=== PATIENT | female | born 1950 | race Caucasian/White ===

== ENCOUNTER 2020-02-29 10:31 | Day surgery (SDC) | payer OTHER ==
[2020-02-29] MEDS ORDERED: PROPOFOL 20 ML ONE ×3 (11:50)
[2020-02-29] MEDS ORDERED: PHENYLEPHRINE HCL 10 MG/1 ML SINGLE DOSE VIAL ONE (12:34)
[2020-02-29 13:16] VITALS: PULSE 84; TEMP 97.8
[2020-02-29 13:53] VITALS: BP 101/65
--- NOTE | 2020-03-03 09:37 | PATH ---
Surgical Pathology Report Patient Name: NOÉ TRIANA [facility]. Rec. #: [id number] /Age/Gender: 1950 (Age: 69) / F Account: [id number] Location: [facility] Taken: 02/29/2020 Received: 02/29/2020 Reported: 03/03/2020 Physicians: Des Alvaerz M.D. Specimen(s) Received A: POLYPECTOMY ILEOCECAL AREA B: POLYPECTOMY RIGHT COLON C: RECTUM Clinical History History polyps, change in bowel habits Postoperative diagnosis: Colon polyps, rule out microscopic colitis Final Diagnosis A. ILEOCECAL AREA, HOT SNARE POLYPECTOMY: TUBULAR ADENOMA. B. COLON, RIGHT, HOT SNARE POLYPECTOMY: TUBULAR ADENOMA. C. RECTUM, BIOPSY: SCANT SUPERFICIAL FRAGMENTS OF COLONIC EPITHELIUM. DEEPER LEVELS HAVE BEEN EXAMINED. SEE COMMENT. Comment: Part C, findings are insufficient for definitive diagnosis. Suggest clinical and endoscopic correlation. Electronically Signed Malu Avalos M.D. Gross Description A. Received in formalin, labeled ileocecal area" are 5 vargas, irregular portions of soft tissue measuring 0.2-0.8 cm. in greatest dimension. The base of the largest fragment is inked in blue, and serially sectioned. The specimens are submitted in 2 cassettes as follows: 1- largest fragment; 2- smaller fragments. B. Received in formalin, labeled "right colon" are 7 vargas, irregular portions of soft tissue measuring 0.2-0.5 cm. in greatest dimension. The specimens are submitted in toto in one cassette. C. Received in formalin, labeled "rectum" are 2 vargas, irregular portions of soft tissue measuring 0.1 cm. in greatest dimension. The specimens are submitted in toto in one cassette. MLSZ/03/01/2020 sanml/03/01/2020
== END 2020-02-29 13:56 | disposition short-term general hospital (02) ==
LOC: FASU-ENDO 10:31
PROVIDERS: ATTEND Internal Medicine Gastroenterology
PROC: 0DBC8ZX Excision of Ileocecal Valve, Via Natural or Artificial Opening Endoscopic, Diagnostic (ICD-10-PCS; 2020-02-29)
PROC: 0DBP8ZX Excision of Rectum, Via Natural or Artificial Opening Endoscopic, Diagnostic (ICD-10-PCS; 2020-02-29)
PROC: 0DBN8ZX Excision of Sigmoid Colon, Via Natural or Artificial Opening Endoscopic, Diagnostic (ICD-10-PCS; 2020-02-29)
PROC: 0DBK8ZX Excision of Ascending Colon, Via Natural or Artificial Opening Endoscopic, Diagnostic (ICD-10-PCS; principal; 2020-02-29 12:13)
DX: Z86.010 Personal history of colon polyps (principal); D12.0 Benign neoplasm of cecum; D12.2 Benign neoplasm of ascending colon
CPT/HCPCS: 82962; 88305-TC

== ENCOUNTER 2020-03-18 13:19 | Inpatient (IN) | payer OTHER ==
[2020-03-18 13:37] VITALS: BMI 33.8
--- NOTE | 2020-03-18 13:47 | PDOC ---
History of Present Illness - General Chief Complaint: Nausea Stated Complaint: NAUSEA Time Seen by Provider: 03/18/20 13:47 History Source: Patient, Family Exam Limitations: No Limitations - History of Present Illness Initial Comments: 03/18/20 14:29 69F with PMH of insulin dependent DM, HTN, hysterectomy, and c/s presents to ED nausea/vomiting, unable to tolerate PO, and AMS. She was brought in by her [id number] (who provides much of the history) from [facility] rehab (for right foot amputation) due to appearing to be altered. The patient has been able to tolerate some fluids PO, but no food for days. She's been getting zofran w/o relief, and is currently nauseous. Denies fevers, hematemesis, diarrhea/constipation, VELAZCO, numbness/tingling, cp, sob, abd pain. PMH: as in HPI, peripheral vascular disease SH: as in HPI Meds: In chart Allergies: NKDA PCP: in [place] Specialist: Dr. Tinoco (GI) ROS GENERAL/CONSTITUTIONAL: No fever or chills. No weakness. HEENT: No change in vision. No ear pain or discharge. No sore throat. CARDIOVASCULAR: No chest pain or shortness of breath RESPIRATORY: No cough, wheezing, or hemoptysis. GASTROINTESTINAL: +nausea, vomiting; no diarrhea or constipation. No hematemesis. GENITOURINARY: No dysuria, frequency, or change in urination. MUSCULOSKELETAL: No joint or muscle swelling or pain. No neck or back pain. SKIN: No rash NEUROLOGIC: No headache, loss of consciousness, or change in strength/sensation. ENDOCRINE: No increased thirst. No abnormal weight change HEMATOLOGIC/LYMPHATIC: No anemia, easy bleeding, or history of blood clots. ALLERGIC/IMMUNOLOGIC: No hives or skin allergy. PE GENERAL: AOx2 (oriented to self and place, not time); ill-appearing HEAD: No signs of trauma, NC/AT EYES: PERRLA, EOMI, sclera anicteric, conjunctiva clear ENT: Auricles normal inspection, hearing grossly normal, nares patent, moist mucosa, oropharynx clear without exudates. NECK: Normal ROM, supple, no LAD, JVD, or masses HEART: RRR, normal S1/S2, no murmurs, rubs, or gallops. Peripheral pulses 2+ and equal bilaterally. LUNGS: No distress, speaks full sentences, clear to auscultation bilaterally ABDOMEN: Mild diffuse tenderness. No guarding, no rebound. No masses. Neg Hernandez sign EXTREMITIES: Normal inspection, Normal range of motion, no edema. NEUROLOGICAL: CNII-XII grossly intact. Normal speech, no focal sensorimotor deficits. Slightly inaccurate xgkgmt-co-bopc testing SKIN: Warm, Dry, normal turgor, no rashes or lesions noted Assessment and Plan 1. Gastroparesis 2. dehydration 2/2 inability to tolerate PO Alistair Alfaro, PGY1 Emergency Medicine Past History - Medical History Allergies/Adverse Reactions: Allergies Allergy/AdvReac Type Severity Reaction Status Date / Time adhesive tape Allergy Intermediate Itching Verified 02/29/20 11:16 Home Medications: Ambulatory Orders Acetaminophen [Tylenol -] 500 mg PO Q8H 03/18/20 Insulin Glargine,Hum.rec.anlog [Lantus] 13 unit SQ HS 03/18/20 Loperamide HCl [Imodium -] 2 mg PO DAILY 03/18/20 Losartan Potassium 100 mg PO DAILY 03/18/20 Multivitamins [Tab-A-Vit -] 1 tab PO DAILY 03/18/20 Nystatin Cream [Mycostatin] 1 applic TP BID 03/18/20 Omeprazole Magnesium [Prilosec] 20 mg PO DAILY 03/18/20 Ondansetron HCl [Zofran] 4 mg PO TID 03/18/20 Pravastatin Sodium [Pravachol (Nf)] 20 mg PO HS 03/18/20 Tolterodine Tartrate 2 mg PO BID 03/18/20 Zinc Oxide 0 gm TP DAILY 03/18/20 Anemia: No Asthma: No Cancer: No Cardiac Disorders: No CVA: No COPD: No CHF: No Dementia: No Diabetes: Yes GI Disorders: Yes (GERD) Disorders: Yes (OVERACTIVE BLADDER/INCT) HTN: Yes Hypercholesterolemia: No Liver Disease: No Seizures: No Thyroid Disease: No - Surgical History Abdominal Surgery: Yes (SEE BELOW) Appendectomy: No Cardiac Surgery: No Cholecystectomy: No Lung Surgery: No Neurologic Surgery: No Orthopedic Surgery: Yes (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 Audit-10AR): Negative In the last yr the pt used illegal drug/Rx for NonMed reason: No Score: Yes response is considered Positive: 0 Screen Result (Positive result requires Nsg. DAST-10): Negative *Physical Exam - Vital Signs Last Vital Signs Temp Pulse Resp BP Pulse Ox 97.9 F 74 18 110/39 L 100 03/18/20 13:28 03/18/20 13:28 03/18/20 13:28 03/18/20 13:28 03/18/20 13:28 ED Treatment Course - LABORATORY CBC & Chemistry Diagram: 03/18/20 15:00 03/18/20 16:50 Medical Decision Making - Medical Decision Making 03/18/20 14:50 69F with PMH of insulin dependent DM p/w AMS, inability to tolerate PO, and n/v. Pt was AOx2, appears dry, mild abd tenderness otherwise exam wnl. -> will get CBC, CMP, lactate, lipase, EKG, 1L NS -> eval for electrolyte disturbance Will give Reglan if no QT prolongation -> QTc 440 -> given IV Reglan EKG: nsr, no ST-T changes, no peaked T waves r/o ACS, may be atypical presentation. r/o intracranial pathology due to AMS -> CT head 03/18/20 16:18 CBC unremarkable. Trop negative. Lactate wnl. CMP notable for elevated BUN, creatinine (no prior labs) -> may reflect ROSALES -> will consult nephrology UA had +3 blood, leukocyte esterase, >6400 bacteria, >[address] head negative. 03/18/20 18:11 Potassium 7.1, repeated potassium 7/1 -> will correct potassium with pt insulin + dextrose, calcium gluconate, and Lokelma Spoke with nephrology, Dr. Gtz, advised to correct potassium, volume expand, and then repeat labs. He will see pt after admitted. 03/18/20 18:58 Pt admitted to /s for further w/up. Discharge - Discharge Information Problems reviewed: Yes Clinical Impression/Diagnosis: ROSALES (acute kidney injury) Condition: Improved - Admission Yes - Follow up/Referral - Patient Discharge Instructions - Post Discharge Activity
[2020-03-18] MEDS ORDERED: SODIUM CHLORIDE 0.9% 500 ML INFUS.BAG IV ONE ×2 (14:52→18:10)
[2020-03-18] MEDS ORDERED: ACETAMINOPHEN 500 MG TABLET (FP) PO ONE (14:52)
[2020-03-18] MEDS ORDERED: ACETAMINOPHEN 1000 MG/100 ML VIAL (NON FORMULARY) IVPB ONE (15:03)
[2020-03-18] MEDS ORDERED: ACETAMINOPHEN INJECTION 100 ML IVPB ONE (15:12)
[2020-03-18 15:38] LABS: BASO % 0.3 % (0-2.0); EOS % 0.1 % (0-4.5); HEMATOCRIT 33.8 % (32.4-45.2); HEMOGLOBIN 10.7 GM/dL (10.7-15.3); LYMPH % 31.5 % (8-40); MCHC 31.6 g/dl (32.0-36.0); MEAN CELL VOLUME 79.2 fl (80-96); MONO % 8.7 % (3.8-10.2); NEUT % 59.4 % (42.8-82.8); PLATELET COUNT 370 K/MM3 (134-434); RBC 4.26 M/mm3 (3.60-5.2); RDW 20.3 % (11.6-15.6); WHITE BLOOD COUNT 9.7 K/mm3 (4.0-10.0)
[2020-03-18 16:09] LABS: ALBUMIN 2.3 g/dl (3.4-5.0); ALK PHOS 171 U/L (45-117); BILIRUBIN,TOTAL 0.3 mg/dL (0.2-1); BLOOD UREA NITROGEN 87.3 mg/dL (7-18); CALCIUM 8.9 mg/dL (8.5-10.1); CHLORIDE 105 mmol/L (98-107); CO2 16 mmol/L (21-32); GLUCOSE,RANDOM 194 mg/dL (74-106); LIPASE 137 U/L (73-393); SGOT/AST 32 U/L (15-37); SGPT/ALT 21 U/L (13-61); SODIUM 133 mmol/L (136-145); TOT PROT 8.4 g/dl (6.4-8.2)
[2020-03-18 16:10] LABS: ANION GAP 12 MMOL/L (8-16)
[2020-03-18 16:18] LABS: POTASSIUM 7.1 mmol/L (3.5-5.1)
[2020-03-18 16:19] LABS: URINE APPEARANCE TURBID; URINE BILIRUBIN NEGATIVE (NEGATIVE); URINE COLOR YELLOW; URINE GLUCOSE (UA) NEGATIVE (NEGATIVE); URINE KETONE 1+ (NEGATIVE)
[2020-03-18 16:20] LABS: URINE PROTEIN 3+ (NEGATIVE)
[2020-03-18 16:21] LABS: EPI CELLS 41.7 /uL (0-25.1); HYALINE CASTS 1545.09 /uL (0-3.1); URINE BACTERIA 6446.3 /uL (0-1359); URINE LEUK ESTERASE 3+ (NEGATIVE); URINE NITRITE NEGATIVE (NEGATIVE); URINE RBC 861.1 /uL (0-23.9); URINE UROBILINOGEN 0.2 mg/dL (0.2-1.0); URINE WBC 17120 /uL (0-25.8)
[2020-03-18] MEDS ORDERED: METOCLOPRAMIDE HCL INJECTION 10 MG/2 ML VIAL IVPUSH ONE (16:33)
--- NOTE | 2020-03-18 16:34 | PDOC ---
Documentation entered by Daniel Acharya SCRIBE, acting as scribe for Prieto Medina MD. Prieto Medina MD: This documentation has been prepared by the Marck villalta Angel, SCRIBE, under my direction and personally reviewed by me in its entirety. I confirm that the documentation accurately reflects all work, treatment, procedures, and medical decision making performed by me. Attending Attestation - Resident Resident Name: Alistair Alfaro - ED Attending Attestation I have performed the following: I have examined & evaluated the patient, The case was reviewed & discussed with the resident, I agree w/resident's findings & plan, Exceptions are as noted - HPI HPI: 03/18/20 15:40 The patient is a 69 year old female with a significant past medical history of IDDM, HTN, hysterectomy and c/s who presents to the ED from [facility] rehab, brought in by her [id number]-dz-qyz with nausea and vomiting. The patient was brought in because she appeared to be altered. The patient has been able to tolerate some fluids PO but has not been able to keep food down for several days. The patient has received zofran with no relief and feels nauseous here in the ED. The patient denies fevers, diarrhea/constipation, headaches, SOB, numbness/tingling or chest pain. - Physicial Exam PE: 03/18/20 16:31 GENERAL: The patient is awake, alert Nontoxic - in no acute distress. HEAD: Normocephalic, atraumatic. EYES: extraocular movements intact, sclera anicteric, conjunctiva clear. ENT: Normal voice, dry mucous membranes. NECK: Normal range of motion, supple LUNGS: Breath sounds equal, clear to auscultation bilaterally. No wheezes, no rhonchi, no rales. HEART: Regular rate and rhythm, normal S1 and S2 without murmur, rub or gallop. ABDOMEN: Soft, nontender, No guarding, no rebound. No CVA tenderness EXTREMITIES: Normal range of motion, trace edema. NEUROLOGICAL: No facial assymetry, Normal speech, PSYCH: Normal mood, normal affect. SKIN: Warm, Dry, normal turgor, - Medical Decision Making 03/18/20 16:32 Patient blood work noted for creatinine of 7 and an elevated BUN I suspect that the patient's persistent vomiting inability to tolerate oral int radha may have resulted in an ROSALES Per the patient's son she does not have any history of kidney disease in the past. We will hydrate the patient with fluids, there is no signs of widened interval or other EKG changes -as the potassium was hemolyzed will repeat the potassium. Anticipate admission for further management Discharge - Discharge Information Problems reviewed: Yes Clinical Impression/Diagnosis: ROSALES (acute kidney injury), Hyperkalemia Altered mental status Qualifiers: Altered mental status type: unspecified Qualified Code(s): R41.82 - Altered mental status, unspecified Condition: Guarded - Follow up/Referral - Patient Discharge Instructions - Post Discharge Activity
[2020-03-18 16:42] LABS: YEAST NONE SEEN (NEGATIVE)
[2020-03-18] MEDS ORDERED: CEFTRIAXONE 1,000 MG in DEXTROSE 5%-WATER - 50 ML IVPB ONE (16:57)
[2020-03-18] MEDS ORDERED: CEFTRIAXONE 1 GM/50 ML BAG ONE (16:58)
[2020-03-18] MEDS ORDERED: METOCLOPRAMIDE HCL 10 MG TABLET (FP) PO ONE (16:58)
[2020-03-18] MEDS ORDERED: METOCLOPRAMIDE HCL INJECTION 10 MG/2 ML VIAL ONE (16:58)
[2020-03-18 17:34] LABS: BLOOD UREA NITROGEN 87.8 mg/dL (7-18); CALCIUM 8.4 mg/dL (8.5-10.1); CREATININE 6.9 mg/dL (0.55-1.3)
[2020-03-18 17:40] LABS: POTASSIUM 7.1 mmol/L (3.5-5.1)
[2020-03-18] MEDS ORDERED: INSULIN REGULAR HUMAN 100 UNITS/ML *VIAL IVPUSH ONE (18:06)
[2020-03-18] MEDS ORDERED: DEXTROSE 50%-WATER - 25 GM/50 ML VIAL IVPUSH ONE (18:08)
[2020-03-18] MEDS ORDERED: CALCIUM GLUCONATE 10% - 1,000 MG/10 ML VIAL IVPB ONE (18:09)
[2020-03-18] MEDS ORDERED: CALCIUM GLUCONATE 10% - 1,000 MG/10 ML VIAL ONE (18:19)
[2020-03-18] MEDS ORDERED: DEXTROSE 50%-WATER 25 GM/50 ML DISP.SYRIN ONE (18:20)
[2020-03-18] MEDS: SODIUM ZIRCONIUM CYCLOSILICATE (LOKELMA) 5 GM PACKET PO SCH (20:44)
[2020-03-18] MEDS ORDERED: LACTATED RINGERS SOLUTION 1,000 ML/1,000 ML INFUS.BAG IV SCH (20:45)
--- NOTE | 2020-03-18 20:54 | HP ---
CHIEF COMPLAINT: Nausea/vomiting PCP: Dr. Ajit Ramos HISTORY OF PRESENT ILLNESS: Pt is a 69 year old female with PMHx of IDDM, HTN, HLD, PVD, s/p R foot TMA presenting to the ED with nausea, vomiting. Pt son is bedside in the ED who provides assistance with the history. Pt states she has been at [facility] for the last few months after R foot TMA amputation. Pt states the last few weeks she has had increasing nausea and vomiting that has progressively worsened. Pt states initially it was mainly food and some liquids, but now is unable to keep down any food and liquids, as either of these will cause vomiting within 5-10 minutes. Pt states the vomit has been non bloody, nonbilious. Pt has tried Zo paola with no benefit. Pt denies any fever, chills, urinary symptoms, chest pain, palpitations, diarrhea and constipation. Admits to nausea, without any vomiting. ER course was notable for: (1) K+7.1; given calcium gluc, insulin+D50, lokelma (2) EKG without peaked T waves (3) BUN/Cr 87.8/6.9, given 2L fluid bolus (4) UA with >61417 bacteria, 3+ LE PAST MEDICAL HISTORY: As stated in HPI PAST SURGICAL HISTORY: R foot TMA 2019 Hysterectomy 2003 Social History: Smoking: Denies Alcohol: Denies Drugs: Denies Allergies adhesive tape Allergy (Intermediate, Verified 02/29/20 11:16) Itching HOME MEDICATIONS: Home Medications Medication Instructions Recorded Acetaminophen [Tylenol -] 500 mg PO Q8H 03/18/20 Insulin Glargine,Hum.rec.anlog 13 unit SQ HS 03/18/20 [Lantus] Loperamide HCl [Imodium -] 2 mg PO DAILY 03/18/20 Losartan Potassium 100 mg PO DAILY 03/18/20 Multivitamins [Tab-A-Vit -] 1 tab PO DAILY 03/18/20 Nystatin Cream [Mycostatin] 1 applic TP BID 03/18/20 Omeprazole Magnesium [Prilosec] 20 mg PO DAILY 03/18/20 Ondansetron HCl [Zofran] 4 mg PO TID 03/18/20 Pravastatin Sodium [Pravachol (Nf)] 20 mg PO HS 03/18/20 Tolterodine Tartrate 2 mg PO BID 03/18/20 Zinc Oxide 0 gm TP DAILY 03/18/20 REVIEW OF SYSTEMS CONSTITUTIONAL: Absent: fever, chills, diaphoresis, generalized weakness, malaise, loss of appetite, weight change HEENT: Absent: rhinorrhea, nasal congestion, throat pain, throat swelling, difficulty swallowing, mouth swelling, ear pain, eye pain, visual changes CARDIOVASCULAR: Absent: chest pain, syncope, palpitations, irregular heart rate, lighthea dedness, peripheral edema RESPIRATORY: Absent: cough, shortness of breath, dyspnea with exertion, orthopnea, wheezing, stridor, hemoptysis GASTROINTESTINAL: Admits nausea, NBNB vomiting Absent: abdominal pain, abdominal distension, diarrhea, constipation, melena, hematochezia GENITOURINARY: Absent: dysuria, frequency, urgency, hesitancy, hematuria, flank pain, genital pain MUSCULOSKELETAL: Absent: myalgia, arthralgia, joint swelling, back pain, neck pain SKIN: Absent: rash, itching, pallor HEMATOLOGIC/IMMUNOLOGIC: Absent: easy bleeding, easy bruising, lymphadenopathy, frequent infections ENDOCRINE: Absent: unexplained weight gain, unexplained weight loss, heat intolerance, cold intolerance NEUROLOGIC: Admits bladder incontinence Absent: headache, focal weakness or paresthesias, dizziness, unsteady gait, seizure, mental status changes, bowel incontinence PSYCHIATRIC: Absent: anxiety, depression, suicidal or homicidal ideation, hallucinations. PHYSICAL EXAMINATION Vital Signs - 24 hr 03/18/20 03/18/20 13:28 17:40 Temperature 97.9 F 98.2 F Pulse Rate 74 Pulse Rate [ 101 H Apical] Respiratory 18 18 Rate Blood Pressure 110/39 L Blood Pressure 115/51 L [Left Arm] O2 Sat by Pulse 100 100 Oximetry (%) GENERAL: Awake, alert, and fully oriented, in no acute distress. HEAD: Normal with no signs of trauma. EYES: Pupils equal, round and reactive to light, extraocular movements intact, sclera anicteric, conjunctiva clear. No lid lag. EARS, NOSE, THROAT: Ears normal, nares patent, oropharynx clear without exudates. Moist mucous membranes. NECK: Normal range of motion, supple without lymphadenopathy, JVD, or masses. LUNGS: Breath sounds equal, clear to auscultation bilaterally. No wheezes, and no crackles. No accessory muscle use. HEART: Regular rate and rhythm, normal S1 and S2 without murmur, rub or gallop. ABDOMEN: Soft, nontender, not distended, normoactive bowel sounds, no guarding, no rebound, no masses. No hepatomegaly or splenomegaly. MUSCULOSKELETAL: Normal range of motion at all joints. No bony deformities or tenderness. No CVA tenderness. UPPER EXTREMITIES: 2+ pulses, warm, well-perfused. No cyanosis. No clubbing. No peripheral edema. LOWER EXTREMITIES: 2+ pulses, warm, well-perfused. No calf tenderness. No suha pheral edema. R foot TMA. 4/5 muscle strength bilaterally NEUROLOGICAL: Cranial nerves II-XII intact. Normal speech. Normal gait. PSYCHIATRIC: Cooperative. Good eye contact. Appropriate mood and affect. SKIN: Warm, dry, normal turgor, no rashes or lesions noted, normal capillary refill. Laboratory Results - last 24 hr 03/18/20 03/18/20 03/18/20 15:00 15:00 15:00 WBC 9.7 RBC 4.26 Hgb 10.7 Hct 33.8 MCV 79.2 L MCH 25.0 L MCHC 31.6 L RDW 20.3 H Plt Count 370 MPV 8.0 Absolute Neuts (auto) 5.8 Neutrophils % 59.4 Lymphocytes % 31.5 Monocytes % 8.7 Eosinophils % 0.1 Basophils % 0.3 Nucleated RBC % 0 Sodium 133 L Potassium 7.1 H* Chloride 105 Carbon Dioxide 16 L Anion Gap 12 BUN 87.3 H Creatinine 7.0 H Est GFR (CKD-EPI)AfAm 6.42 Est GFR (CKD-EPI)NonAf 5.54 POC Glucometer Random Glucose 194 H Lactic Acid 0.9 Calcium 8.9 Total Bilirubin 0.3 AST 32 ALT 21 Alkaline Phosphatase 171 H Creatine Kinase 25 L Troponin I < 0.02 Total Protein 8.4 H Albumin 2.3 L Lipase 137 Urine Color Urine Appearance Urine pH Ur Specific [place] Urine Protein Urine Glucose (UA) Urine Ketones Urine Blood Urine Nitrite Urine Bilirubin Urine Urobilinogen Ur Leukocyte Esterase Urine WBC (Auto) Urine RBC (Auto) Urine Casts (Auto) U Pathogenic Cast Auto U Epithel Cells (Auto) Urine Bacteria (Auto) Urine Yeast (Auto) 03/18/20 03/18/20 03/18/20 15:42 15:55 16:50 WBC RBC Hgb Hct MCV MCH MCHC RDW Plt Count MPV Absolute Neuts (auto) Neutrophils % Lymphocytes % Monocytes % Eosinophils % Basophils % Nucleated RBC % Sodium 135 L Potassium 7.1 H* Chloride 107 Carbon Dioxide 18 L Anion Gap 10 BUN 87.8 H Creatinine 6.9 H Est GFR (CKD-EPI)AfAm 6.53 Est GFR (CKD-EPI)NonAf 5.64 POC Glucometer 168 Random Glucose 180 H Lactic Acid Calcium 8.4 L Total Bilirubin AST ALT Alkaline Phosphatase Creatine Kinase Troponin I Total Protein Albumin Lipase Urine Color Yellow Urine Appearance Turbid Urine pH 6.0 Ur Specific [place] 1.012 Urine Protein 3+ H Urine Glucose (UA) Negative Urine Ketones 1+ H Urine Blood 3+ H Urine Nitrite Negative Urine Bilirubin Negative Urine Urobilinogen 0.2 Ur Leukocyte Esterase 3+ H Urine WBC (Auto) 21048 Urine RBC (Auto) 861.1 Urine Casts (Auto) 1545.09 U Pathogenic Cast Auto None seen U Epithel Cells (Auto) 41.7 Urine Bacteria (Auto) 6446.3 Urine Yeast (Auto) None seen ASSESSMENT/PLAN: Pt is a 69 year old female with PMHx of IDDM, HTN, HLD, PVD, s/p R foot TMA presenting to the ED with nausea, vomiting admitted for ROSALES/hyperkalemia. #ROSALES #Hyperkalemia -BUN/Cr 87.8/6.9 -2L fluid bolus -on IV LR 83 cc/hr -K+ 7, repeat 6.9 -Ca gluc, insulin 10u + D50, Lokelma -no peaked T waves on EKG -repeat BMP after fluid bolus complete, q4h afterwards -Renal ultrasound -urine lytes -renal consulted #UTI -seen with UA, UCx pending -continue Rocephin #Hx of DM -SSI and bgm -A1c ordered FEN LR 83cc/hr Monitor electrolytes Diabetic/sodium diet PPx Heparin 5000u TID Dispo Admit to tele. Monitor K+, BMP q4h. Rocephin for UTI. ATTENDING PHYSICIAN STATEMENT I saw and evaluated the patient. I reviewed the resident's note and discussed the case with the resident. I agree with the resident's findings and plan as documented. SUBJECTIVE: OBJECTIVE: ASSESSMENT AND PLAN:
[2020-03-18] MEDS: INSULIN SLIDING SCALE (NOVOLOG) 1 VIAL SQ SCH (21:00)
--- NOTE | 2020-03-18 21:04 | PN ---
Teaching Attending Note Name of Resident: Diana Roberts ATTENDING PHYSICIAN STATEMENT I saw and evaluated the patient. I reviewed the resident's note and discussed the case with the resident. I agree with the resident's findings and plan as documented. SUBJECTIVE: 69 Y/O F w/PMHx of IDDM, HTN, HLD, p/w weeks of nausea and vomiting. OBJECTIVE: V/S: Afeb HR 101 BP 115/51 100 % on RA PE: Gen: poor dentition, A&Ox 3 Cardiac: S1 S2 no M/R/G Lung: CTA B/L Abd: Soft non tender no suprapubic distension BS normal , no guarding or rigidity Ext: Right TMA No edema b/l Labs: No leukocytosis H/H 10.7/33 Plt 370 Na 135 K 7.1 BUN/Creat 87/6.9 U.A 3+ Blood, 3+ protein 3+ leukocyte esterase In ED Received Cagluc , Insulin 10 units &D50 ASSESSMENT AND PLAN: Acute Renal Failure W/HyperKalemia UTI Pre-renal ROSALES 2/2 Dehydration in setting of recent history of vomiting Kay insertion Urine electrolytes U/S Renal Tele monitoring Monitor BMP K q 4 hr IV LR @ 83 cc/hr C/W Rocephin VBG Monitor Bicarb Received tx for Hyper K in ED, repeat K tx per results Monitor I/O DM ISS HbA1C Supp care DVT Px- HSQ 5K TID Diet Renal
[2020-03-18 21:16] LABS: BLOOD UREA NITROGEN 80.2 mg/dL (7-18); CALCIUM 8.2 mg/dL (8.5-10.1); CREATININE 6.3 mg/dL (0.55-1.3); POTASSIUM 5.7 mmol/L (3.5-5.1)
[2020-03-18] MEDS: HEPARIN NA (PORCINE) 5,000 UNITS/ML 1ML VIAL SQ SCH (22:00)
[2020-03-19] MEDS: INSULIN SLIDING SCALE (NOVOLOG) 1 VIAL SQ SCH ×3 (06:56→17:46)
[2020-03-19 07:00] LABS: BASO % 0.2 % (0-2.0); EOS % 0.3 % (0-4.5); LYMPH % 24.9 % (8-40); MCH 24.9 pg (25.7-33.7); MCHC 31.2 g/dl (32.0-36.0); MEAN CELL VOLUME 79.7 fl (80-96); MEAN PLT VOLUME 7.7 fl (7.5-11.1); MONO % 7.2 % (3.8-10.2); NEUT % 67.4 % (42.8-82.8); PLATELET COUNT 331 K/MM3 (134-434); RBC 4.01 M/mm3 (3.60-5.2); RDW 19.8 % (11.6-15.6); WHITE BLOOD COUNT 10.5 K/mm3 (4.0-10.0)
[2020-03-19] MEDS: HEPARIN NA (PORCINE) 5,000 UNITS/ML 1ML VIAL SQ SCH ×3 (07:01→22:18)
[2020-03-19 07:26] LABS: BLOOD UREA NITROGEN 76.2 mg/dL (7-18); CALCIUM 8.5 mg/dL (8.5-10.1); MAGNESIUM 1.5 mg/dL (1.8-2.4); PHOSPHOROUS 4.5 mg/dL (2.5-4.9)
[2020-03-19 07:29] LABS: POTASSIUM 6.1 mmol/L (3.5-5.1)
[2020-03-19] MEDS ORDERED: INSULIN REGULAR HUMAN 100 UNITS/ML *VIAL IVPUSH ONE (07:49)
[2020-03-19] MEDS ORDERED: ALBUTEROL SO4 2.5/IPRATROPIUM 0.5 INH SOL 3 ML VIAL.NEB. NEB ONE (07:49)
[2020-03-19] MEDS ORDERED: DEXTROSE 50%-WATER - 25 GM/50 ML VIAL IVPUSH ONE (07:49)
[2020-03-19] MEDS ORDERED: CALCIUM GLUCONATE 10% - 1,000 MG/10 ML VIAL IVPB ONE (08:30)
[2020-03-19] MEDS ORDERED: SODIUM CHLORIDE 1,000 ML IV SCH ×2 (08:30→14:32)
[2020-03-19] MEDS ORDERED: cefTRIAXone SODIUM 1 GM VIAL ONE (10:40)
[2020-03-19] MEDS ORDERED: DEXTROSE 5%-WATER - 50 ML IVPB ONE (10:40)
[2020-03-19] MEDS ORDERED: DEXTROSE 50%-WATER - 25 GM/50 ML VIAL ONE (10:46)
[2020-03-19] MEDS: SODIUM ZIRCONIUM CYCLOSILICATE (LOKELMA) 5 GM PACKET PO SCH (11:00)
[2020-03-19] MEDS: CEFTRIAXONE 1 GM in DEXTROSE 5%-WATER - 50 ML IVPB SCH (11:01)
[2020-03-19] MEDS ORDERED: ONDANSETRON 4 MG/2 ML VIAL IVPUSH PRN (12:23)
--- NOTE | 2020-03-19 12:37 | PN ---
Teaching Attending Note Name of Resident: Greg Gonzales ATTENDING PHYSICIAN STATEMENT I saw and evaluated the patient. I reviewed the resident's note and discussed the case with the resident. I agree with the resident's findings and plan as documented. SUBJECTIVE: patient is a limited historian. slow to responds and sometimes responds with unrelated answer. she denies pain, denies SOB, she feels she is dry. she reports N/V for a " while ". she denies dysuria. has no diarrhea. she states she lives in a NH. is to call her son to ask more specific questions OBJECTIVE: NAD, very dry MM. knows her name, and year, but not age or location . CV: RRR, no MRG Lungs: CTAB Abd: soft , NT, Nd , NL BS. Ext : No edema or erythema on LE or upper extremities. R TMA . no open wounds . surgical scar is well healed Neuro: no facial EOMI, strength 4/5 in upper extremities proximally and distally LE s: 3/5 in hip flexion , and knee felxion and extension . ASSESSMENT AND PLAN: 69 y/o lady with h/o TMA, DM, HTN, HL, PVD who presented with persistent N/V and was found to have acute renal failure and hyperkalemia 1- ROSALES: likely due to pre-renal azotemia due to severe volume depletion form N/V - increase rate of IVF - treat hyperkalemia - case was d/w Dr. Gtz, if K level improves, there is no indication for urgent HD to avoid side effects - will ask son if mom takes NSIAds or other meds that can offend the kidneys 2- Hyperkalemia: - gave ca, Alb, D50 this am - cont Lokelma - re peat labs - EKG reviewed. 3- persistent N/V: no clear etiology. in presence of microcytic anemia, need to r/o gastritis , PUD, or even ulcer ca using gastric oout let edema /scarring . BS are present and no distention is seen. doubt SBO or ileus UTI can cause N/V but not for prolonged period of time without sepsis or bacteremia urenmia can cause N/V as well - get CT of Abd - use PPI - give IVF - antiemetics. - if no improvement or no answers , will ask GI to evaluate 4- UTI: - cont ceftriaxone - follow urine cx 5- Microcytic anemia : get iron studies and FOBT might need GI eval at some point 6- Dm : dc HS coverage of SSI 7- Will confirm her meds DVT px : sq heparin Son to be called by team for more details
[2020-03-19 13:16] LABS: BLOOD UREA NITROGEN 74.4 mg/dL (7-18); CALCIUM 8.7 mg/dL (8.5-10.1); POTASSIUM 5.1 mmol/L (3.5-5.1)
--- NOTE | 2020-03-19 13:43 | CONSULT ---
Consult Consult Specialty:: Nephrology Reason for Consultation:: ROSALES - History of Present Illness Chief Complaint: nausea and vomiting History of Present Illness: Pt is a 69 year old female with pmhx of DM, HTN, HLD, PVD, right foot TMA who presents to the ER with nausea and vomiting. She says that she has had poor appetite for the last few weeks. She has only been drinking orange juice all week. She also complains of weakness. She was found to be in ROSALES and I was called to evaluate her. She denies dysuria or hematuria. She denies history of CKD. She denies nsaid use. She is able to give some history today. - History Source History Provided By: Patient - Past Medical History Cardio/Vascular: Yes: HTN, Hyperlipdemia ...: No Endocrine: Yes: Diabetes Mellitus - Smoking History Smoking history: Never smoked Have you smoked in the past 12 months: No Home Medications - Allergies Allergies/Adverse Reactions: Allergies Allergy/AdvReac Type Severity Reaction Status Date / Time adhesive tape Allergy Intermediate Itching Verified 02/29/20 11:16 - Home Medications Home Medications: Ambulatory Orders Acetaminophen [Tylenol -] 500 mg PO Q8H 03/18/20 Insulin Glargine,Hum.rec.anlog [Lantus] 13 unit SQ HS 03/18/20 Loperamide HCl [Imodium -] 2 mg PO DAILY 03/18/20 Losartan Potassium 100 mg PO DAILY 03/18/20 Multivitamins [Tab-A-Vit -] 1 tab PO DAILY 03/18/20 Nystatin Cream [Mycostatin] 1 applic TP BID 03/18/20 Omeprazole Magnesium [Prilosec] 20 mg PO DAILY 03/18/20 Ondansetron HCl [Zofran] 4 mg PO TID 03/18/20 Pravastatin Sodium [Pravachol (Nf)] 20 mg PO HS 03/18/20 Tolterodine Tartrate 2 mg PO BID 03/18/20 Zinc Oxide 0 gm TP DAILY 03/18/20 Family Medical History Family History: Denies Review of Systems - Review of Systems Constitutional: reports: Loss of Appetite, Malaise, Weakness Eyes: reports: No Symptoms HENT: reports: No Symptoms Neck: reports: No Symptoms Cardiovascular: reports: No Symptoms Respiratory: reports: No Symptoms Gastrointestinal: reports: Nausea, Vomiting Genitourinary: reports: No Symptoms Musculoskeletal: reports: No Symptoms Neurological: reports: Confusion Endocrine: reports: No Symptoms Psychiatric: reports: No Symptoms Physical Exam Vital Signs: Vital Signs Temperature 98.1 F 03/19/20 00:05 Pulse Rate 78 03/19/20 06:47 Respiratory Rate 18 03/19/20 06:47 Blood Pressure 137/56 L 03/19/20 06:47 O2 Sat by Pulse Oximetry (%) 98 03/19/20 00:05 Constitutional: Yes: Calm Eyes: Yes: Conjunctiva Clear HENT: Yes: Atraumatic Cardiovascular: Yes: S1, S2 Respiratory: Yes: CTA Bilaterally Gastrointestinal: Yes: Soft Renal/: Yes: WNL Musculoskeletal: Yes: WNL Edema: No Neurological: Yes: Oriented Labs: CBC, BMP 03/19/20 06:00 03/19/20 12:25 Laboratory Tests 03/18/20 03/18/20 03/18/20 15:00 16:50 20:40 Potassium 7.1 H* 7.1 H* 5.7 H Carbon Dioxide Creatinine 03/19/20 03/19/20 06:00 12:25 Potassium 6.1 H* 5.1 Carbon Dioxide 16 L Creatinine 6.0 H 6.0 H Imaging - Results Cat Scan: Report Reviewed Problem List - Problems (1) Hyperkalemia Code(s): E87.5 - HYPERKALEMIA (2) Vomiting Code(s): R11.10 - VOMITING, UNSPECIFIED (3) HTN (hypertension) Code(s): I10 - ESSENTIAL (PRIMARY) HYPERTENSION (4) Diabetes mellitus Code(s): E11.9 - TYPE 2 DIABETES MELLITUS WITHOUT COMPLICATIONS (5) ROSALES (acute kidney injury) Code(s): N17.9 - ACUTE KIDNEY FAILURE, UNSPECIFIED Assessment/Plan Current Medications Generic Name Dose Route Start Last Admin Trade Name Freq PRN Reason Stop Dose Admin Albuterol/Ipratropium 2 amp 03/19/20 07:49 Duoneb - NEB 03/19/20 07:50 ONCE ONE Heparin Sodium (Porcine) 5,000 unit 03/18/20 22:00 03/19/20 07:01 Heparin - SQ 5,000 unit TID EDITH Administration Ceftriaxone Sodium 1 gm/ 50 mls @ 100 mls/hr 03/19/20 10:00 03/19/20 11:01 Dextrose IVPB 100 mls/hr DAILY EDITH Administration Protocol Sodium Chloride 1,000 mls @ 125 mls/hr 03/19/20 08:30 03/19/20 11:00 Normal Saline - IV 125 mls/hr ASDIR EDITH Administration Influenza Virus Vaccine 60 mcg 03/19/20 04:46 Flulaval Quad 9450-3180 Syr IM 03/19/20 04:47 .ONCE ONE Insulin Aspart 1 vial 03/19/20 11:00 03/19/20 12:51 Novolog Vial Sliding Scale - SQ 4 units TIDAC EDITH Administration Protocol Ondansetron HCl 4 mg 03/19/20 12:23 Zofran Injection IVPUSH Q6H PRN NAUSEA AND/OR VOMITING Sodium Zirconium Cyclosilicate 10 gm 03/18/20 18:15 03/19/20 11:00 Lokelma PO 10 gm DAILY EDITH Administration Impression 1. ROSALES 2. hyperkalemia 3. nausea and vomiting 4. met acidosis 5. DM 6. HTN 7. HLD 8. 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
[2020-03-19 14:03] LABS: ALBUMIN 1.9 g/dl (3.4-5.0); BILIRUBIN,TOTAL 0.2 mg/dL (0.2-1); TOT PROT 7.2 g/dl (6.4-8.2)
[2020-03-19] MEDS ORDERED: FLU VACCINE (FLULAVAL) PF 60 MCG/0.5 ML SYRINGE 2020-2021 IM ONE (14:15)
[2020-03-19] MEDS: SODIUM BICARBONATE 650 MG TABLET PO SCH ×2 (15:21→22:18)
[2020-03-19] MEDS ORDERED: SODIUM ZIRCONIUM CYCLOSILICATE (LOKELMA) 5 GM PACKET PO ONE (15:33)
--- NOTE | 2020-03-19 16:34 | PN ---
Physical Exam: SUBJECTIVE: Patient seen and examined at bedside, confused and unable to provide clear information. Contacted son for further details. He reports that his mother was at baseline before October, AAOx3, communicating, ambulating. 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 After discharge/rehab, she showed some improvements. He reports that he was not able to visit his mother for 3 months due to covid, and recently visited her on . He noticed she was disoriented, more confused, had b/l resting tremors and weight loss. He reports that she had intractable nausea and vomiting for 3-4 wks with decreased PO intake and complained of loss of taste sensation. He reports No Hx of kidney disease, and no NSIAD use. Patient was seen by Dr. Noriega, who did a colonoscopy w/o any abnormal findings. OBJECTIVE: Vital Signs Period Temp Pulse Resp BP Sys/Puga Pulse Ox Last 24 Hr 97.5 F-98.2 F 74-101 18-22 115-148/50-92 98-100 GENERAL: AAOx3, in no acute distress HEENT: NCAT, PERRLA, EOMI, sclera anicteric, conjunctiva clear, oropharynx clear w/o exudates. Dry MM. NECK: Normal ROM, supple, no lymphadenopathy, JVD, or masses LUNGS: CTABL no wheezes/ rhonchi/ rales. No distress, speaks in full sentences. No increased work of breathing. HEART: RRR, normal S1 S2, no M/R/G, peripheral pulses 2+ and equal b/l ABDOMEN: Soft, non-tender, + BS. No guarding or rebound. No hepatomegaly or s plenomegaly. MSK: ROM WNL, NO CVA tenderness EXTREMITIES: Normal inspection. No peripheral edema. No clubbing or cyanosis. s/p R foot TMA, healing 1.5x1cm ulcer near the distal site NEUROLOGICAL: CN II-XII intact. Normal speech, gait not observed, no focal sensorimotor deficits. intact motor and sensory function in all extremities PSYCH: Normal mood, normal affect. SKIN: Warm, Dry, normal turgor, no rashes or lesions noted Laboratory Results - last 24 hr 03/18/20 03/18/20 03/18/20 15:00 15:00 15:16 WBC RBC Hgb Hct MCV MCH MCHC RDW Plt Count MPV Absolute Neuts (auto) Neutrophils % Lymphocytes % Monocytes % Eosinophils % Basophils % Nucleated RBC % Retic Count Sodium 133 L Potassium 7.1 H* Chloride 105 Carbon Dioxide 16 L Anion Gap 12 BUN 87.3 H Creatinine 7.0 H Est GFR (CKD-EPI)AfAm 6.42 Est GFR (CKD-EPI)NonAf 5.54 POC Glucometer Random Glucose 194 H Hemoglobin A1c % Lactic Acid 0.9 Calcium 8.9 Phosphorus Magnesium Iron TIBC Iron Saturation Unsaturated IBC Ferritin Total Bilirubin 0.3 AST 32 ALT 21 Alkaline Phosphatase 171 H Creatine Kinase 25 L Troponin I < 0.02 Total Protein 8.4 H Albumin 2.3 L Lipase 137 Urine Color Urine Appearance Urine pH Ur Specific [place] Urine Protein Urine Glucose (UA) Urine Ketones Urine Blood Urine Nitrite Urine Bilirubin Urine Urobilinogen Ur Leukocyte Esterase Urine WBC (Auto) Urine RBC (Auto) Urine Casts (Auto) U Pathogenic Cast Auto U Epithel Cells (Auto) Urine Bacteria (Auto) Urine Yeast (Auto) COVID-19 (TAMIKA) Not detected 03/18/20 03/18/20 03/18/20 15:42 15:55 16:50 WBC RBC Hgb Hct MCV MCH MCHC RDW Plt Count MPV Absolute Neuts (auto) Neutrophils % Lymphocytes % Monocytes % Eosinophils % Basophils % Nucleated RBC % Retic Count Sodium 135 L Potassium 7.1 H* Chloride 107 Carbon Dioxide 18 L Anion Gap 10 BUN 87.8 H Creatinine 6.9 H Est GFR (CKD-EPI)AfAm 6.53 Est GFR (CKD-EPI)NonAf 5.64 POC Glucometer 168 Random Glucose 180 H Hemoglobin A1c % Lactic Acid Calcium 8.4 L Phosphorus Magnesium Iron TIBC Iron Saturation Unsaturated IBC Ferritin Total Bilirubin AST ALT Alkaline Phosphatase Creatine Kinase Troponin I Total Protein Albumin Lipase Urine Color Yellow Urine Appearance Turbid Urine pH 6.0 Ur Specific [place] 1.012 Urine Protein 3+ H Urine Glucose (UA) Negative Urine Ketones 1+ H Urine Blood 3+ H Urine Nitrite Negative Urine Bilirubin Negative Urine Urobilinogen 0.2 Ur Leukocyte Esterase 3+ H Urine WBC (Auto) 92313 Urine RBC (Auto) 861.1 Urine Casts (Auto) 1545.09 U Pathogenic Cast Auto None seen U Epithel Cells (Auto) 41.7 Urine Bacteria (Auto) 6446.3 Urine Yeast (Auto) None seen COVID-19 (TAMIKA) 03/18/20 03/19/20 03/19/20 20:40 06:00 06:00 WBC 10.5 H RBC 4.01 Hgb 10.0 L Hct 32.0 L MCV 79.7 L MCH 24.9 L MCHC 31.2 L RDW 19.8 H Plt Count 331 MPV 7.7 Absolute Neuts (auto) 7.1 Neutrophils % 67.4 Lymphocytes % 24.9 D Monocytes % 7.2 Eosinophils % 0.3 D Basophils % 0.2 Nucleated RBC % 0 Retic Count Sodium 138 137 Potassium 5.7 H 6.1 H* Chloride 112 H 110 H Carbon Dioxide 19 L 15 L Anion Gap 7 L 12 BUN 80.2 H 76.2 H Creatinine 6.3 H 6.0 H Est GFR (CKD-EPI)AfAm 7.29 7.74 Est GFR (CKD-EPI)NonAf 6.29 6.68 POC Glucometer Random Glucose 137 H 158 H Hemoglobin A1c % Lactic Acid Calcium 8.2 L 8.5 Phosphorus 4.0 4.5 Magnesium 1.5 L Iron TIBC Iron Saturation Unsaturated IBC Ferritin Total Bilirubin AST ALT Alkaline Phosphatase Creatine Kinase Troponin I Total Protein Albumin Lipase Urine Color Urine Appearance Urine pH Ur Specific [place] Urine Protein Urine Glucose (UA) Urine Ketones Urine Blood Urine Nitrite Urine Bilirubin Urine Urobilinogen Ur Leukocyte Esterase Urine WBC (Auto) Urine RBC (Auto) Urine Casts (Auto) U Pathogenic Cast Auto U Epithel Cells (Auto) Urine Bacteria (Auto) Urine Yeast (Auto) COVID-19 (TAMIKA) 03/19/20 03/19/20 03/19/20 06:00 06:54 10:58 WBC RBC Hgb Hct MCV MCH MCHC RDW Plt Count MPV Absolute Neuts (auto) Neutrophils % Lymphocytes % Monocytes % Eosinophils % Basophils % Nucleated RBC % Retic Count Sodium Potassium Chloride Carbon Dioxide Anion Gap BUN Creatinine Est GFR (CKD-EPI)AfAm Est GFR (CKD-EPI)NonAf POC Glucometer 169 152 Random Glucose Hemoglobin A1c % 6.7 H Lactic Acid Calcium Phosphorus Magnesium Iron TIBC Iron Saturation Unsaturated IBC Ferritin Total Bilirubin AST ALT Alkaline Phosphatase Creatine Kinase Troponin I Total Protein Albumin Lipase Urine Color Urine Appearance Urine pH Ur Specific [place] Urine Protein Urine Glucose (UA) Urine Ketones Urine Blood Urine Nitrite Urine Bilirubin Urine Urobilinogen Ur Leukocyte Esterase Urine WBC (Auto) Urine RBC (Auto) Urine Casts (Auto) U Pathogenic Cast Auto U Epithel Cells (Auto) Urine Bacteria (Auto) Urine Yeast (Auto) COVID-19 (TAMIKA) 03/19/20 03/19/20 03/19/20 12:25 12:25 12:26 WBC RBC Hgb Hct MCV MCH MCHC RDW Plt Count MPV Absolute Neuts (auto) Neutrophils % Lymphocytes % Monocytes % Eosinophils % Basophils % Nucleated RBC % Retic Count 0.75 Sodium 139 Potassium 5.1 Chloride 111 H Carbon Dioxide 16 L Anion Gap 11 BUN 74.4 H Creatinine 6.0 H Est GFR (CKD-EPI)AfAm 7.74 Est GFR (CKD-EPI)NonAf 6.68 POC Glucometer 203 Random Glucose 203 H Hemoglobin A1c % Lactic Acid Calcium 8.7 Phosphorus Magnesium Iron 36 L TIBC 114 L Iron Saturation 31 Unsaturated IBC 78 L Ferritin 395.8 H Total Bilirubin 0.2 AST 20 ALT 16 Alkaline Phosphatase 145 H Creatine Kinase Troponin I Total Protein 7.2 Albumin 1.9 L Lipase Urine Color Urine Appearance Urine pH Ur Specific [place] Urine Protein Urine Glucose (UA) Urine Ketones Urine Blood Urine Nitrite Urine Bilirubin Urine Urobilinogen Ur Leukocyte Esterase Urine WBC (Auto) Urine RBC (Auto) Urine Casts (Auto) U Pathogenic Cast Auto U Epithel Cells (Auto) Urine Bacteria (Auto) Urine Yeast (Auto) COVID-19 (TAMIKA) Active Medications Generic Name Dose Route Start Last Admin Trade Name Freq PRN Reason Stop Dose Admin Heparin Sodium (Porcine) 5,000 unit 03/18/20 22:00 03/19/20 15:21 Heparin - SQ 5,000 unit TID EDITH Administration Ceftriaxone Sodium 1 gm/ 50 mls @ 100 mls/hr 03/19/20 10:00 03/19/20 11:01 Dextrose IVPB 100 mls/hr DAILY EDITH Administration Protocol Sodium Chloride 1,000 mls @ 150 mls/hr 03/19/20 14:32 03/19/20 15:21 Normal Saline - IV 150 mls/hr ASDIR EDITH Administration Insulin Aspart 1 vial 03/19/20 11:00 03/19/20 12:51 Novolog Vial Sliding Scale - SQ 4 units TIDAC EDITH Administration Protocol Ondansetron HCl 4 mg 03/19/20 12:23 Zofran Injection IVPUSH Q6H PRN NAUSEA AND/OR VOMITING Sodium Bicarbonate 650 mg 03/19/20 14:00 03/19/20 15:21 Sodium Bicarbonate - PO 650 mg BID EDITH Administration Sodium Zirconium Cyclosilicate 10 gm 03/18/20 18:15 03/19/20 11:00 Lokelma PO 10 gm DAILY EDITH Administration ASSESSMENT/PLAN: 69 Y F with a PMH of IDDM, HTN, HLD, PVD, s/p R foot TMA presenting to the ED with nausea, vomiting admitted for ROSALES/hyperkalemia. #ROSALES - Likely 2/2 pre-renal Azotemia (dehydration/volume depletion) due to intractable vomiting - on admission BUN/Cr 87.8/6.9, improved to 74.4/6 with IVF - is able to make urine - Nephro, Dr. Gtz is following, recs appreciated - will continue to monitor #Hyperkalemia -on admission K+ 7, improved to 5.1 today -s/p Ca gluc, insulin 10u + D50, Lokelma x 2 -EKG: NSR no ST/T wave changes #Intractable nausea and vomiting - Unclear etiology: d/d Gastroparesis, gastritis, gastric outlet obstruction - Ordered CTAP - Will continue with IVF #UTI -UA LE 3+, Blood 3+, WBC 79926, RBC 861, Bacteria 6446, UCx: Lactose fermenting (prelim) -continue Rocephin 1gm D#2 #Hx of DM -SSI and bgm -HbA1c 6.7 FEN - NS 150 mls/hr, dehydrated, dry MM - will continue to monitor electrolytes - renal Diet(diabetic) DVT PPx - Heparin 5000u SQ TID Dispo - Will continue to monitor in tele. will monitor electrolytes, pending CTAB Visit type - Emergency Visit Emergency Visit: Yes ED Registration Date: 03/18/20 Care time: The patient presented to the Emergency Department on the above date and was hospitalized for further evaluation of their emergent condition. - New Patient This patient is new to me today: No - Critical Care Critical Care patient: No - Discharge Referral Referred to [facility] Med [facility] No - Medication Review Med list reviewed for High Risk Meds patients 65 and older: Yes ATTENDING PHYSICIAN STATEMENT I saw and evaluated the patient. I reviewed the resident's note and discussed the case with the resident. I agree with the resident's findings and plan as documented. SUBJECTIVE: OBJECTIVE: ASSESSMENT AND PLAN:
[2020-03-20] MEDS: HEPARIN NA (PORCINE) 5,000 UNITS/ML 1ML VIAL SQ SCH ×3 (06:40→21:21)
[2020-03-20] MEDS: INSULIN SLIDING SCALE (NOVOLOG) 1 VIAL SQ SCH ×3 (06:40→16:38)
[2020-03-20 07:03] LABS: BASO % 0.2 % (0-2.0); EOS % 0.2 % (0-4.5); HEMATOCRIT 31.5 % (32.4-45.2); HEMOGLOBIN 9.7 GM/dL (10.7-15.3); LYMPH % 26.8 % (8-40); MCH 24.7 pg (25.7-33.7); MCHC 30.9 g/dl (32.0-36.0); MEAN CELL VOLUME 80.1 fl (80-96); MEAN PLT VOLUME 7.7 fl (7.5-11.1); MONO % 7.2 % (3.8-10.2); NEUT % 65.6 % (42.8-82.8); PLATELET COUNT 330 K/MM3 (134-434); RBC 3.93 M/mm3 (3.60-5.2); RDW 19.9 % (11.6-15.6); WHITE BLOOD COUNT 9.7 K/mm3 (4.0-10.0)
[2020-03-20 07:37] LABS: ALBUMIN 1.8 g/dl (3.4-5.0); BILIRUBIN,TOTAL 0.2 mg/dL (0.2-1); BLOOD UREA NITROGEN 60.6 mg/dL (7-18); CALCIUM 8.1 mg/dL (8.5-10.1); CREATININE 4.8 mg/dL (0.55-1.3); MAGNESIUM 1.5 mg/dL (1.8-2.4); PHOSPHOROUS 3.9 mg/dL (2.5-4.9); TOT PROT 6.9 g/dl (6.4-8.2)
[2020-03-20] MEDS ORDERED: DEXTROSE 5%-WATER - 50 ML IVPB ONE (09:41)
[2020-03-20] MEDS ORDERED: cefTRIAXone SODIUM 1 GM VIAL ONE (09:41)
[2020-03-20] MEDS: SODIUM ZIRCONIUM CYCLOSILICATE (LOKELMA) 5 GM PACKET PO SCH (10:01)
[2020-03-20] MEDS: SODIUM BICARBONATE 650 MG TABLET PO SCH ×3 (10:01→21:29)
[2020-03-20] MEDS: CEFTRIAXONE 1 GM in DEXTROSE 5%-WATER - 50 ML IVPB SCH (10:01)
--- NOTE | 2020-03-20 10:03 | PN ---
Progress Note, Physician - Current Medication List Current Medications: Active Medications Heparin Sodium (Porcine) (Heparin -) 5,000 unit SQ TID [facility] Last Admin: 03/20/20 06:40 Dose: 5,000 unit Documented by: Ceftriaxone Sodium 1 gm/ (Dextrose) 50 mls @ 100 mls/hr IVPB DAILY [facility]; Protocol Last Admin: 03/20/20 10:01 Dose: 100 mls/hr Documented by: Sodium Chloride (Normal Saline -) 1,000 mls @ 150 mls/hr IV ASDIR [facility] Last Admin: 03/19/20 15:21 Dose: 150 mls/hr Documented by: Insulin Aspart (Novolog Vial Sliding Scale -) 1 vial SQ TIDAC [facility]; Protocol Last Admin: 03/20/20 06:40 Dose: 2 units Documented by: Ondansetron HCl (Zofran Injection) 4 mg IVPUSH Q6H PRN PRN Reason: NAUSEA AND/OR VOMITING Sodium Bicarbonate (Sodium Bicarbonate -) 650 mg PO BID [facility] Last Admin: 03/20/20 10:01 Dose: 650 mg Documented by: Sodium Zirconium Cyclosilicate (Lokelma) 10 gm PO DAILY [facility] Last Admin: 03/20/20 10:01 Dose: 10 gm Documented by: - Objective Vital Signs: Vital Signs Temperature 98 F 03/20/20 02:00 Pulse Rate 86 03/20/20 06:00 Respiratory Rate 18 03/20/20 06:00 Blood Pressure 154/87 03/20/20 06:00 O2 Sat by Pulse Oximetry (%) 97 03/20/20 02:00 Cardiovascular: Yes: S1, S2 Respiratory: Yes: Regular, CTA Bilaterally Gastrointestinal: Yes: Normal Bowel Sounds, Soft. No: Tenderness Labs: CBC, BMP 03/20/20 06:15 03/20/20 06:15 Problem List - Problems (1) Vomiting Assessment/Plan: - Unclear etiology: d/d Gastroparesis, gastritis, gastric outlet obstruction - CTAP results pending - Will continue with IVF - PPI -GI consult Code(s): R11.10 - VOMITING, UNSPECIFIED (2) ROSALES (acute kidney injury) Assessment/Plan: - due to intractable vomiting - on admission BUN/Cr 87.8/6.9, improved to 74.4/6 --60/4.8 with IVF - is able to make urine - NephroDr. Gtz is following, recs appreciated - will continue to monitor Code(s): N17.9 - ACUTE KIDNEY FAILURE, UNSPECIFIED (3) Diabetes mellitus Assessment/Plan: -SSI and bgm -HbA1c 6.7 Code(s): E11.9 - TYPE 2 DIABETES MELLITUS WITHOUT COMPLICATIONS (4) HTN (hypertension) Code(s): I10 - ESSENTIAL (PRIMARY) HYPERTENSION (5) Hyperkalemia Assessment/Plan: -on admission K+ 7, improved to 5.1 --5 today -s/p Ca gluc, insulin 10u + D50, Lokelma x 2 -EKG: NSR no ST/T wave changes Code(s): E87.5 - HYPERKALEMIA (6) UTI (urinary tract infection) Assessment/Plan: -UA LE 3+, Blood 3+, WBC 75353, RBC 861, Bacteria 6446, UCx: Lactose fermenting (prelim) -continue Rocephin 1gm D#2 Microbiology 03/18/20 15:42 Urine - Urine Clean Catch Urine Culture - Preliminary Lactose Fermenting Neg Bacilli Code(s): N39.0 - URINARY TRACT INFECTION, SITE NOT SPECIFIED
[2020-03-20] MEDS ORDERED: AMINO ACIDS 4.25%/D5W 1,000 ML IV SCH (10:15)
[2020-03-20] MEDS: PANTOPRAZOLE SODIUM 40 MG VIAL IVPUSH SCH ×2 (10:30→21:30)
[2020-03-20 13:05] LABS: EPI CELLS 28 /uL (0-25.1); HYALINE CASTS 19 /uL (0-3.1); PH,URINE 5.5 (5.0-8.0); URINE APPEARANCE TURBID; URINE BACTERIA 4638 /uL (0-1359); URINE BILIRUBIN NEGATIVE (NEGATIVE); URINE COLOR ORANGE; URINE GLUCOSE (UA) NEGATIVE (NEGATIVE); URINE KETONE TRACE (NEGATIVE); URINE LEUK ESTERASE 3+ (NEGATIVE); URINE NITRITE POSITIVE (NEGATIVE); URINE PROTEIN 2+ (NEGATIVE); URINE UROBILINOGEN 0.2 mg/dL (0.2-1.0); URINE WBC 18301 /uL (0-25.8)
--- NOTE | 2020-03-20 13:39 | CON.GI ---
Consult Consult Specialty:: Gastroenterology ( covering Dr Nesbitt) Referred by:: Dr Felipe Reason for Consultation:: nausea and vomiting - History of Present Illness Chief Complaint: Unable to eat History of Present Illness: 69F was transferred from the [facility] with hyperkalemia, renal failure and a history of inability to keep any food down for several weeks. She is recovering from a right foot TMA. She had a colonoscopy with Dr Alvarez on 02/29/20 when 1.5cm ( ileocecal valve) and 2.0cm ( ascending colon) tubular adenomas were removed. She denies ever having had an EGD. - History Source History Provided By: Patient - Past Medical History Cardio/Vascular: Yes: HTN, Hyperlipdemia Gastrointestinal: Yes: Other (cecal and right colon tubular adenomas rmeoved by Dr Alvarez 03/06) Hepatobiliary: Yes: Cholelithiasis ...: No Endocrine: Yes: Diabetes Mellitus - Past Surgical History Past Surgical History: Yes: Colonoscopy (Dr Alvarez removed cecal and right colon tubular adenomas), , Hysterectomy (TAHBSO prophylactically ( FH ovarian cancer)) - Alcohol/Substance Use Hx Alcohol Use: No History of Substance Use: reports: None - Smoking History Smoking history: Never smoked Have you smoked in the past 12 months: No - Social History Usual Living Arrangement: Long-Term ADL: Support Services 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 Home Medications - Allergies Allergies/Adverse Reactions: Allergies Allergy/AdvReac Type Severity Reaction Status Date / Time adhesive tape Allergy Intermediate Itching Verified 02/29/20 11:16 - Home Medications Home Medications: Ambulatory Orders Acetaminophen [Tylenol -] 500 mg PO Q8H 03/18/20 Insulin Glargine,Hum.rec.anlog [Lantus] 13 unit SQ HS 03/18/20 Loperamide HCl [Imodium -] 2 mg PO DAILY 03/18/20 Losartan Potassium 100 mg PO DAILY 03/18/20 Multivitamins [Tab-A-Vit -] 1 tab PO DAILY 03/18/20 Nystatin Cream [Mycostatin] 1 applic TP BID 03/18/20 Omeprazole Magnesium [Prilosec] 20 mg PO DAILY 03/18/20 Ondansetron HCl [Zofran] 4 mg PO TID 03/18/20 Pravastatin Sodium [Pravachol (Nf)] 20 mg PO HS 03/18/20 Tolterodine Tartrate 2 mg PO BID 03/18/20 Zinc Oxide 0 gm TP DAILY 03/18/20 Family Medical History Family History: Denies Family Hx Cancer: Mother ( ovarian cancer age 56) Other Family History: Father of alcoholic liver disease Review of Systems - Review of Systems Constitutional: reports: Lethargy, Unintentional Wgt. Loss, Weakness Eyes: reports: No Symptoms HENT: reports: No Symptoms Neck: reports: No Symptoms Cardiovascular: reports: No Symptoms Respiratory: reports: No Symptoms Gastrointestinal: reports: Nausea, Vomiting Physical Exam-GI Vital Signs: Vital Signs Temperature 98.1 F 03/20/20 10:00 Pulse Rate 96 H 03/20/20 10:00 Respiratory Rate 18 03/20/20 10:00 Blood Pressure 155/88 03/20/20 10:00 O2 Sat by Pulse Oximetry (%) 100 03/20/20 10:00 CBC,CMP WBC 9.7 K/mm3 (4.0-10.0) 03/20/20 06:15 RBC 3.93 M/mm3 (3.60-5.2) 03/20/20 06:15 Hgb 9.7 GM/dL (10.7-15.3) L 03/20/20 06:15 Hct 31.5 % (32.4-45.2) L 03/20/20 06:15 MCV 80.1 fl (80-96) 03/20/20 06:15 MCH 24.7 pg (25.7-33.7) L 03/20/20 06:15 MCHC 30.9 g/dl (32.0-36.0) L 03/20/20 06:15 RDW 19.9 % (11.6-15.6) H 03/20/20 06:15 Plt Count 330 K/MM3 (134-434) 03/20/20 06:15 MPV 7.7 fl (7.5-11.1) 03/20/20 06:15 Absolute Neuts (auto) 6.4 K/mm3 (1.5-8.0) 03/20/20 06:15 Neutrophils % 65.6 % (42.8-82.8) 03/20/20 06:15 Lymphocytes % 26.8 % (8-40) 03/20/20 06:15 Monocytes % 7.2 % (3.8-10.2) 03/20/20 06:15 Eosinophils % 0.2 % (0-4.5) 03/20/20 06:15 Basophils % 0.2 % (0-2.0) 03/20/20 06:15 Nucleated RBC % 0 % (0-0) 03/20/20 06:15 Retic Count 0.75 % (0.5-1.5) 03/19/20 12:25 Sodium 140 mmol/L (136-145) 03/20/20 06:15 Potassium 5.0 mmol/L (3.5-5.1) 03/20/20 06:15 Chloride 114 mmol/L (98-107) H 03/20/20 06:15 Carbon Dioxide 15 mmol/L (21-32) L 03/20/20 06:15 Anion Gap 11 MMOL/L (8-16) 03/20/20 06:15 BUN 60.6 mg/dL (7-18) H 03/20/20 06:15 Creatinine 4.8 mg/dL (0.55-1.3) H 03/20/20 06:15 Est GFR (CKD-EPI)AfAm 10.13 03/20/20 06:15 Est GFR (CKD-EPI)NonAf 8.74 03/20/20 06:15 POC Glucometer 172 UNITS (80-120) 03/20/20 11:14 Random Glucose 163 mg/dL (74-106) H 03/20/20 06:15 Hemoglobin A1c % 6.7 % (4.2-6.3) H 03/19/20 06:00 Lactic Acid 0.9 mmol/L (0.4-2.0) 03/18/20 15:00 Calcium 8.1 mg/dL (8.5-10.1) L 03/20/20 06:15 Phosphorus 3.9 mg/dL (2.5-4.9) 03/20/20 06:15 Magnesium 1.5 mg/dL (1.8-2.4) L 03/20/20 06:15 Iron 36 ug/dL (50-175) L 03/19/20 12:25 TIBC 114 ug/dL (250-450) L 03/19/20 12:25 Iron Saturation 31 % (17.5-39) 03/19/20 12:25 Unsaturated IBC 78 ug/dL (200-275) L 03/19/20 12:25 Ferritin 395.8 ng/ml (8-388) H 03/19/20 12:25 Total Bilirubin 0.2 mg/dL (0.2-1) 03/20/20 06:15 AST 17 U/L (15-37) 03/20/20 06:15 ALT 14 U/L (13-61) 03/20/20 06:15 Alkaline Phosphatase 137 U/L (45-117) H 03/20/20 06:15 Creatine Kinase 25 U/L (26-192) L 03/18/20 15:00 Troponin I < 0.02 ng/ml (0.00-0.05) 03/18/20 15:00 Total Protein 6.9 g/dl (6.4-8.2) 03/20/20 06:15 Albumin 1.8 g/dl (3.4-5.0) L 03/20/20 06:15 Lipase 137 U/L (73-393) 03/18/20 15:00 Current Medications Generic Name Dose Route Start Last Admin Trade Name Freq PRN Reason Stop Dose Admin Heparin Sodium (Porcine) 5,000 unit 03/18/20 22:00 03/20/20 12:59 Heparin - SQ 5,000 unit TID EDITH Administration Ceftriaxone Sodium 1 gm/ 50 mls @ 100 mls/hr 03/19/20 10:00 03/20/20 10:01 Dextrose IVPB 100 mls/hr DAILY EDITH Administration Protocol Amino Acids 1,000 mls @ 50 mls/hr 03/20/20 13:52 Clinimix - IV Q12H EDITH Sodium Chloride 1,000 mls @ 42 mls/hr 03/20/20 14:00 1/2 Normal Saline IV ASDIR EDITH Insulin Aspart 1 vial 03/19/20 11:00 03/20/20 11:29 Novolog Vial Sliding Scale - SQ 2 units TIDAC EDITH Administration Protocol Magnesium Sulfate 1 gm 03/20/20 13:53 Magnesium Sulfate IVPB 03/20/20 13:54 ONCE ONE Ondansetron HCl 4 mg 03/19/20 12:23 Zofran Injection IVPUSH Q6H PRN NAUSEA AND/OR VOMITING Pantoprazole Sodium 40 mg 03/20/20 10:15 03/20/20 10:30 Protonix Iv IVPUSH 40 mg BID EDITH Administration Sodium Bicarbonate 650 mg 03/20/20 14:00 Sodium Bicarbonate - PO TID EDITH Sodium Zirconium Cyclosilicate 10 gm 03/18/20 18:15 03/20/20 10:01 Lokelma PO 10 gm DAILY EDITH Administration Constitutional: Yes: Anxious Eyes: Yes: Conjunctiva Clear HENT: Yes: Normocephalic Neck: Yes: Trachea Midline Cardiovascular: Yes: Regular Rate and Rhythm Respiratory: Yes: CTA Bilaterally Gastrointestinal Inspection: Yes: Distention, Scars (vertical suprapubic incisions), Other (obese) ...Auscultate: Yes: Hypoactive Bowel Sounds ...Palpate: Yes: Soft, Other (nontender) ...Rectal Exam: Yes: Guaiac Positive (brown guaiac positive stool) Wound/Incision: Yes: Other (healing R TMA incision) Neurological: Yes: Alert Labs: CBC, BMP 03/20/20 06:15 03/20/20 06:15 Imaging - Results Cat Scan: Image Reviewed (no gastric or smal bowel distension seen) Problem List - Problems (1) Nausea and vomiting Code(s): R11.2 - NAUSEA WITH VOMITING, UNSPECIFIED (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 (3) ROSALES (acute kidney injury) Code(s): N17.9 - ACUTE KIDNEY FAILURE, UNSPECIFIED (4) Diabetes mellitus Code(s): E11.9 - TYPE 2 DIABETES MELLITUS WITHOUT COMPLICATIONS (5) HTN (hypertension) Code(s): I10 - ESSENTIAL (PRIMARY) HYPERTENSION (6) Hyperkalemia Code(s): E87.5 - HYPERKALEMIA (7) Colon adenomas Code(s): D12.6 - BENIGN NEOPLASM OF COLON, UNSPECIFIED Assessment/Plan Impression: - Suspect diabetic gastroparesis but given the small stomach she may alternatively have been vomiting due to renal failure, perhaps obstructive uropathy given her hydronephosis bilaterally. Will try Reglan but if vomiting persists she may need an EGD - Her severe hypoalbuminemia suggests nephrotic syndrome ( 2-3+ protein on U/A) but myeloma needs to be excluded Plan: -- Reglan 10mg q6h IVPB -- PPI empirically -- SPEP, urine [facility] Dr Nesbitt will assume GI care tomorrow
--- NOTE | 2020-03-20 13:52 | PN ---
Progress Note, Physician History of Present Illness: Pt seen and examined at bedside. She is more awake today. She says she is not tolerating diet. - Current Medication List Current Medications: Active Medications Heparin Sodium (Porcine) (Heparin -) 5,000 unit SQ TID [facility] Last Admin: 03/20/20 12:59 Dose: 5,000 unit Documented by: Ceftriaxone Sodium 1 gm/ (Dextrose) 50 mls @ 100 mls/hr IVPB DAILY [facility]; Protocol Last Admin: 03/20/20 10:01 Dose: 100 mls/hr Documented by: Amino Acids (Clinimix -) 1,000 mls @ 84 mls/hr IV Q12H [facility] Last Admin: 03/20/20 11:20 Dose: 84 mls/hr Documented by: Insulin Aspart (Novolog Vial Sliding Scale -) 1 vial SQ TIDAC [facility]; Protocol Last Admin: 03/20/20 11:29 Dose: 2 units Documented by: Ondansetron HCl (Zofran Injection) 4 mg IVPUSH Q6H PRN PRN Reason: NAUSEA AND/OR VOMITING Pantoprazole Sodium (Protonix Iv) 40 mg IVPUSH BID [facility] Last Admin: 03/20/20 10:30 Dose: 40 mg Documented by: Sodium Bicarbonate (Sodium Bicarbonate -) 650 mg PO BID [facility] Last Admin: 03/20/20 10:01 Dose: 650 mg Documented by: Sodium Zirconium Cyclosilicate (Lokelma) 10 gm PO DAILY [facility] Last Admin: 03/20/20 10:01 Dose: 10 gm Documented by: - Objective Vital Signs: Vital Signs Temperature 98.1 F 03/20/20 10:00 Pulse Rate 96 H 03/20/20 10:00 Respiratory Rate 18 03/20/20 10:00 Blood Pressure 155/88 03/20/20 10:00 O2 Sat by Pulse Oximetry (%) 100 03/20/20 10:00 Constitutional: Yes: Calm Eyes: Yes: Conjunctiva Clear HENT: Yes: Atraumatic Neck: Yes: Supple Cardiovascular: Yes: S1, S2 Respiratory: Yes: CTA Bilaterally Gastrointestinal: Yes: Soft Genitourinary: Yes: Incontinence Musculoskeletal: Yes: Muscle Weakness Edema: No Integumentary: Yes: WNL Neurological: Yes: Oriented Psychiatric: Yes: Oriented Labs: CBC, BMP 03/20/20 06:15 03/20/20 06:15 Problem List - Problems (1) Hyperkalemia Code(s): E87.5 - HYPERKALEMIA (2) Vomiting Code(s): R11.10 - VOMITING, UNSPECIFIED (3) HTN (hypertension) Code(s): I10 - ESSENTIAL (PRIMARY) HYPERTENSION (4) Diabetes mellitus Code(s): E11.9 - TYPE 2 DIABETES MELLITUS WITHOUT COMPLICATIONS (5) ROSALES (acute kidney injury) Code(s): N17.9 - ACUTE KIDNEY FAILURE, UNSPECIFIED Assessment/Plan Current Medications Generic Name Dose Route Start Last Admin Trade Name Freq PRN Reason Stop Dose Admin Heparin Sodium (Porcine) 5,000 unit 03/18/20 22:00 03/20/20 12:59 Heparin - SQ 5,000 unit TID EDITH Administration Ceftriaxone Sodium 1 gm/ 50 mls @ 100 mls/hr 03/19/20 10:00 03/20/20 10:01 Dextrose IVPB 100 mls/hr DAILY EDITH Administration Protocol Amino Acids 1,000 mls @ 84 mls/hr 03/20/20 10:15 03/20/20 11:20 Clinimix - IV 84 mls/hr Q12H EDITH Administration Insulin Aspart 1 vial 03/19/20 11:00 03/20/20 11:29 Novolog Vial Sliding Scale - SQ 2 units TIDAC EDITH Administration Protocol Ondansetron HCl 4 mg 03/19/20 12:23 Zofran Injection IVPUSH Q6H PRN NAUSEA AND/OR VOMITING Pantoprazole Sodium 40 mg 03/20/20 10:15 03/20/20 10:30 Protonix Iv IVPUSH 40 mg BID EDITH Administration Sodium Bicarbonate 650 mg 03/19/20 14:00 03/20/20 10:01 Sodium Bicarbonate - PO 650 mg BID EDITH Administration Sodium Zirconium Cyclosilicate 10 gm 03/18/20 18:15 03/20/20 10:01 Lokelma PO 10 gm DAILY EDITH Administration Impression 1. ROSALES 2. hyperkalemia 3. nausea and vomiting 4. met acidosis 5. DM 6. HTN 7. HLD 8. PVD Plan - renal function is improving - cont lokelma - repeat labs in am - cont fluids - follow serologies - place miller - hydro on ultrasound - will follow
[2020-03-20] MEDS ORDERED: MAGNESIUM SULF 50% (8.12 MEQ/2 ML-1 GM VIAL) IVPB ONE (13:53)
[2020-03-20] MEDS: SODIUM CHLORIDE 0.45% 1,000 ML IV SCH (14:16)
[2020-03-20] MEDS: AMINO ACIDS 4.25%/D5W 1,000 ML IV SCH (14:18)
[2020-03-20] MEDS: METOCLOPRAMIDE HCL INJECTION 10 MG/2 ML VIAL IVPUSH SCH ×2 (14:40→21:19)
[2020-03-20 15:15] LABS: URINE RBC 669.7 /uL (0-23.9)
--- NOTE | 2020-03-20 20:03 | EKG ---
Test Reason : Blood Pressure : / mmHG Vent. Rate : 098 BPM Atrial Rate : 098 BPM P-R Int : 146 ms QRS Dur : 076 ms QT Int : 338 ms P-R-T Axes : 000 -19 -16 degrees QTc Int : 431 ms NORMAL SINUS RHYTHM NONSPECIFIC ST ABNORMALITY ABNORMAL ECG WHEN COMPARED WITH ECG OF 18-MAR-2020 15:28, T WAVE VARIATION Confirmed by FABIO LATIF MD ([id number]) on 03/20/2020 8:03:15 PM Referred By: Barron SANCHES Confirmed By:FABIO LATIF MD
--- NOTE | 2020-03-20 21:36 | EKG ---
Test Reason : Blood Pressure : / mmHG Vent. Rate : 079 BPM Atrial Rate : 079 BPM P-R Int : 138 ms QRS Dur : 080 ms QT Int : 384 ms P-R-T Axes : 052 -17 064 degrees QTc Int : 440 ms NORMAL SINUS RHYTHM NORMAL ECG NO PREVIOUS ECGS AVAILABLE Confirmed by FABIO LATIF MD ([id number]) on 03/20/2020 9:36:01 PM Referred By: Confirmed By:FABIO LATIF MD
[2020-03-21] MEDS: AMINO ACIDS 4.25%/D5W 1,000 ML IV SCH ×2 (02:00→13:55)
[2020-03-21] MEDS: METOCLOPRAMIDE HCL INJECTION 10 MG/2 ML VIAL IVPUSH SCH ×2 (03:07→09:40)
[2020-03-21] MEDS: HEPARIN NA (PORCINE) 5,000 UNITS/ML 1ML VIAL SQ SCH ×3 (06:09→22:32)
[2020-03-21] MEDS: SODIUM BICARBONATE 650 MG TABLET PO SCH ×3 (06:10→22:34)
[2020-03-21] MEDS: INSULIN SLIDING SCALE (NOVOLOG) 1 VIAL SQ SCH ×3 (06:11→17:23)
[2020-03-21 07:18] LABS: ALBUMIN 1.7 g/dl (3.4-5.0); BILIRUBIN,TOTAL 0.2 mg/dL (0.2-1); BLOOD UREA NITROGEN 59.4 mg/dL (7-18); CALCIUM 7.9 mg/dL (8.5-10.1); CREATININE 3.7 mg/dL (0.55-1.3); MAGNESIUM 1.5 mg/dL (1.8-2.4); POTASSIUM 4.4 mmol/L (3.5-5.1); TOT PROT 6.5 g/dl (6.4-8.2)
[2020-03-21] MEDS ORDERED: DEXTROSE 5%-WATER - 50 ML IVPB ONE (09:27)
[2020-03-21] MEDS ORDERED: cefTRIAXone SODIUM 1 GM VIAL ONE (09:27)
[2020-03-21] MEDS: SODIUM ZIRCONIUM CYCLOSILICATE (LOKELMA) 5 GM PACKET PO SCH (09:40)
[2020-03-21] MEDS: PANTOPRAZOLE SODIUM 40 MG VIAL IVPUSH SCH ×2 (09:40→22:31)
[2020-03-21] MEDS: CEFTRIAXONE 1 GM in DEXTROSE 5%-WATER - 50 ML IVPB SCH (09:40)
[2020-03-21 11:13] LABS: HEMATOCRIT 28.5 % (32.4-45.2); HEMOGLOBIN 9.1 GM/dL (10.7-15.3); MCHC 31.8 g/dl (32.0-36.0); MEAN CELL VOLUME 78.8 fl (80-96); MEAN PLT VOLUME 8.1 fl (7.5-11.1); PLATELET COUNT 301 K/MM3 (134-434); RBC 3.62 M/mm3 (3.60-5.2); RDW 20.3 % (11.6-15.6); WHITE BLOOD COUNT 10.6 K/mm3 (4.0-10.0)
[2020-03-21 11:36] LABS: ALBUMIN 1.7 g/dl (3.4-5.0); BILIRUBIN,TOTAL 0.2 mg/dL (0.2-1); CALCIUM 7.9 mg/dL (8.5-10.1); CREATININE 3.6 mg/dL (0.55-1.3); MAGNESIUM 1.5 mg/dL (1.8-2.4); POTASSIUM 3.9 mmol/L (3.5-5.1); TOT PROT 6.7 g/dl (6.4-8.2)
--- NOTE | 2020-03-21 11:53 | PN ---
Progress Note, Physician Chief Complaint: AWAKE ALERT EVENTS AND NOTES REVIEWED IN MILD-MODERATE DISTRESS - Current Medication List Current Medications: Active Medications Heparin Sodium (Porcine) (Heparin -) 5,000 unit SQ TID [facility] Last Admin: 03/21/20 06:09 Dose: 5,000 unit Documented by: Ceftriaxone Sodium 1 gm/ (Dextrose) 50 mls @ 100 mls/hr IVPB DAILY [facility]; Protocol Last Admin: 03/21/20 09:40 Dose: 100 mls/hr Documented by: Amino Acids (Clinimix -) 1,000 mls @ 50 mls/hr IV Q12H [facility] Last Admin: 03/21/20 02:00 Dose: 50 mls/hr Documented by: Sodium Chloride (1/2 Normal Saline) 1,000 mls @ 42 mls/hr IV ASDIR [facility] Last Admin: 03/20/20 14:16 Dose: 42 mls/hr Documented by: Insulin Aspart (Novolog Vial Sliding Scale -) 1 vial SQ TIDAC [facility]; Protocol Last Admin: 03/21/20 11:43 Dose: 6 units Documented by: Metoclopramide HCl (Reglan Injection -) 10 mg IVPUSH Q6H [facility] Last Admin: 03/21/20 09:40 Dose: 10 mg Documented by: Ondansetron HCl (Zofran Injection) 4 mg IVPUSH Q6H PRN PRN Reason: NAUSEA AND/OR VOMITING Pantoprazole Sodium (Protonix Iv) 40 mg IVPUSH BID [facility] Last Admin: 03/21/20 09:40 Dose: 40 mg Documented by: Sodium Bicarbonate (Sodium Bicarbonate -) 650 mg PO TID [facility] Last Admin: 03/21/20 06:10 Dose: 650 mg Documented by: Sodium Zirconium Cyclosilicate (Lokelma) 10 gm PO DAILY [facility] Last Admin: 03/21/20 09:40 Dose: 10 gm Documented by: - Objective Vital Signs: Vital Signs Temperature 98 F 03/21/20 10:00 Pulse Rate 81 03/21/20 10:00 Respiratory Rate 18 03/21/20 10:00 Blood Pressure 162/67 03/21/20 10:00 O2 Sat by Pulse Oximetry (%) 100 03/21/20 10:00 Constitutional: Yes: Moderate Distress Cardiovascular: Yes: Regular Rate and Rhythm Respiratory: Yes: Diminished, On Nasal O2 Gastrointestinal: Yes: Soft, Tenderness Genitourinary: Yes: Incontinence Musculoskeletal: Yes: Muscle Weakness Neurological: Yes: Pre-Existing Deficit Labs: CBC, BMP 03/21/20 10:15 03/21/20 10:15 Problem List - Problems (1) Acute renal failure Code(s): N17.9 - ACUTE KIDNEY FAILURE, UNSPECIFIED (2) ROSALES (acute kidney injury) Code(s): N17.9 - ACUTE KIDNEY FAILURE, UNSPECIFIED (3) Colon adenomas Code(s): D12.6 - BENIGN NEOPLASM OF COLON, UNSPECIFIED (4) Diabetes mellitus Code(s): E11.9 - TYPE 2 DIABETES MELLITUS WITHOUT COMPLICATIONS (5) 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 (6) HTN (hypertension) Code(s): I10 - ESSENTIAL (PRIMARY) HYPERTENSION (7) Hyperkalemia Code(s): E87.5 - HYPERKALEMIA (8) UTI (urinary tract infection) Code(s): N39.0 - URINARY TRACT INFECTION, SITE NOT SPECIFIED Assessment/Plan ARF ON IVF GI EVAL APPRECIATED ON IV REGLAN CLEAR DIET TRANSAMINITIS CHECKING HEP PANEL OOB TO CHAIR PT EVAL DVT PROPHYLAXIS
[2020-03-21] MEDS ORDERED: MAGNESIUM SULF 50% (8.12 MEQ/2 ML-1 GM VIAL) IVPB ONE (12:36)
--- NOTE | 2020-03-21 12:38 | PN ---
Progress Note, Physician History of Present Illness: Pt seen and examined at bedside. She still complains of poor appetite. She has not eaten anything since yesterday. - Current Medication List Current Medications: Active Medications Heparin Sodium (Porcine) (Heparin -) 5,000 unit SQ TID [facility] Last Admin: 03/21/20 06:09 Dose: 5,000 unit Documented by: Ceftriaxone Sodium 1 gm/ (Dextrose) 50 mls @ 100 mls/hr IVPB DAILY [facility]; Protocol Last Admin: 03/21/20 09:40 Dose: 100 mls/hr Documented by: Amino Acids (Clinimix -) 1,000 mls @ 50 mls/hr IV Q12H [facility] Last Admin: 03/21/20 02:00 Dose: 50 mls/hr Documented by: Sodium Chloride (1/2 Normal Saline) 1,000 mls @ 42 mls/hr IV ASDIR [facility] Last Admin: 03/20/20 14:16 Dose: 42 mls/hr Documented by: Insulin Aspart (Novolog Vial Sliding Scale -) 1 vial SQ TIDAC [facility]; Protocol Last Admin: 03/21/20 11:43 Dose: 6 units Documented by: Magnesium Sulfate (Magnesium Sulfate) 2 gm IVPB ONCE ONE Stop: 03/21/20 12:37 Metoclopramide HCl (Reglan Injection -) 10 mg IVPUSH Q6H [facility] Last Admin: 03/21/20 09:40 Dose: 10 mg Documented by: Ondansetron HCl (Zofran Injection) 4 mg IVPUSH Q6H PRN PRN Reason: NAUSEA AND/OR VOMITING Pantoprazole Sodium (Protonix Iv) 40 mg IVPUSH BID [facility] Last Admin: 03/21/20 09:40 Dose: 40 mg Documented by: Sodium Bicarbonate (Sodium Bicarbonate -) 650 mg PO TID [facility] Last Admin: 03/21/20 06:10 Dose: 650 mg Documented by: Sodium Zirconium Cyclosilicate (Lokelma) 10 gm PO DAILY [facility] Last Admin: 03/21/20 09:40 Dose: 10 gm Documented by: - Objective Vital Signs: Vital Signs Temperature 98 F 03/21/20 10:00 Pulse Rate 81 03/21/20 10:00 Respiratory Rate 18 03/21/20 10:00 Blood Pressure 162/67 03/21/20 10:00 O2 Sat by Pulse Oximetry (%) 100 03/21/20 10:00 Constitutional: Yes: Calm Eyes: Yes: Conjunctiva Clear HENT: Yes: Atraumatic Neck: Yes: Supple Cardiovascular: Yes: S1, S2 Respiratory: Yes: On Nasal O2 Gastrointestinal: Yes: Soft Genitourinary: Yes: Kay Present Edema: LLE: Trace, RLE: Trace Neurological: Yes: Oriented Psychiatric: Yes: Oriented Labs: CBC, BMP 03/21/20 10:15 03/21/20 10:15 Problem List - Problems (1) Hyperkalemia Code(s): E87.5 - HYPERKALEMIA (2) Vomiting Code(s): R11.10 - VOMITING, UNSPECIFIED (3) HTN (hypertension) Code(s): I10 - ESSENTIAL (PRIMARY) HYPERTENSION (4) Diabetes mellitus Code(s): E11.9 - TYPE 2 DIABETES MELLITUS WITHOUT COMPLICATIONS (5) ROSALES (acute kidney injury) Code(s): N17.9 - ACUTE KIDNEY FAILURE, UNSPECIFIED Assessment/Plan Current Medications Generic Name Dose Route Start Last Admin Trade Name Monserrat PRN Reason Stop Dose Admin Heparin Sodium (Porcine) 5,000 unit 03/18/20 22:00 03/21/20 06:09 Heparin - SQ 5,000 unit TID EDITH Administration Ceftriaxone Sodium 1 gm/ 50 mls @ 100 mls/hr 03/19/20 10:00 03/21/20 09:40 Dextrose IVPB 100 mls/hr DAILY EDITH Administration Protocol Amino Acids 1,000 mls @ 50 mls/hr 03/20/20 13:52 03/21/20 02:00 Clinimix - IV 50 mls/hr Q12H EDITH Administration Sodium Chloride 1,000 mls @ 42 mls/hr 03/20/20 14:00 03/20/20 14:16 1/2 Normal Saline IV 42 mls/hr ASDIR EDITH Administration Insulin Aspart 1 vial 03/19/20 11:00 03/21/20 11:43 Novolog Vial Sliding Scale - SQ 6 units TIDAC EDITH Administration Protocol Magnesium Sulfate 2 gm 03/21/20 12:36 Magnesium Sulfate IVPB 03/21/20 12:37 ONCE ONE Metoclopramide HCl 10 mg 03/20/20 14:30 03/21/20 09:40 Reglan Injection - IVPUSH 10 mg Q6H EDITH Administration Ondansetron HCl 4 mg 03/19/20 12:23 Zofran Injection IVPUSH Q6H PRN NAUSEA AND/OR VOMITING Pantoprazole Sodium 40 mg 03/20/20 10:15 03/21/20 09:40 Protonix Iv IVPUSH 40 mg BID EDITH Administration Sodium Bicarbonate 650 mg 03/20/20 14:00 03/21/20 06:10 Sodium Bicarbonate - PO 650 mg TID EDITH Administration Sodium Zirconium Cyclosilicate 10 gm 03/18/20 18:15 03/21/20 09:40 Lokelma PO 10 gm DAILY EDITH Administration Impression 1. ROSALES 2. hyperkalemia 3. nausea and vomiting 4. met acidosis 5. DM 6. HTN 7. HLD 8. 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
--- NOTE | 2020-03-21 13:08 | PN.GI ---
GI Progress Note Subjective: No vomiting No abdominal pain Wants to eat - Objective Vital Signs: Vital Signs Temperature 98 F 03/21/20 10:00 Pulse Rate 81 03/21/20 10:00 Respiratory Rate 18 03/21/20 10:00 Blood Pressure 162/67 03/21/20 10:00 O2 Sat by Pulse Oximetry (%) 100 03/21/20 10:00 Constitutional: Calm Eyes: No: Sclera Icterus Cardiovascular: Yes: Regular Rate and Rhythm Gastrointestinal Inspection: No: Distention ...Auscultate: Yes: Normoactive Bowel Sounds ...Percussion: No: Tympanitic Edema: Yes Edema: LLE: 1+, RLE: 1+ Neurological: Yes: Alert Labs: CBC, BMP 03/21/20 10:15 03/21/20 10:15 Problem List - Problems (1) Vomiting Assessment/Plan: Improved: Advanced to clear liquids: renal/diabetic Glycemic control Stopped zofran Decreased Reglan to 5mg IVPB Q 8 hrs PRN If continued clinical improvement, will need outpatient follow-up with Dr. Des Alvarez Code(s): R11.10 - VOMITING, UNSPECIFIED
[2020-03-21] MEDS: SODIUM CHLORIDE 0.45% 1,000 ML IV SCH (14:00)
[2020-03-21] MEDS ORDERED: INSULIN (NOVOLOG) ASPART 100 UNITS/ML 10ML VIAL ONE (17:21)
[2020-03-22] MEDS: AMINO ACIDS 4.25%/D5W 1,000 ML IV SCH ×2 (03:15→13:23)
[2020-03-22 03:28] LABS: HEMATOCRIT 26.7 % (32.4-45.2); HEMOGLOBIN 8.6 GM/dL (10.7-15.3); MCH 25.5 pg (25.7-33.7); MCHC 32.4 g/dl (32.0-36.0); MEAN CELL VOLUME 78.8 fl (80-96); MEAN PLT VOLUME 8.1 fl (7.5-11.1); PLATELET COUNT 320 K/MM3 (134-434); RBC 3.39 M/mm3 (3.60-5.2)
[2020-03-22 03:56] LABS: ALBUMIN 1.7 g/dl (3.4-5.0); BILIRUBIN,TOTAL 0.3 mg/dL (0.2-1); BLOOD UREA NITROGEN 51.3 mg/dL (7-18); CREATININE 2.9 mg/dL (0.55-1.3); POTASSIUM 3.4 mmol/L (3.5-5.1); TOT PROT 6.5 g/dl (6.4-8.2)
--- NOTE | 2020-03-22 05:08 | PN ---
Progress Note (short form) - Note Progress Note: Episodic Note: Called by nurse patient had dark bloody urine. She was seen and examined at bedside . Blood pressure was stable with no evidence of hypotension. CBC checked and resulted at 8.6/26.7 from 9.1/28.5. Renal and GI following. Urology has been consulted. Repeat CBC in am. Kaye Jay N.P. Visit type - Emergency Visit Emergency Visit: Yes ED Registration Date: 03/18/20 Care time: The patient presented to the Emergency Department on the above date and was hospitalized for further evaluation of their emergent condition. - New Patient This patient is new to me today: Yes Date on this admission: 03/22/20 - Critical Care Critical Care patient: No - Medication Review Med list reviewed for High Risk Meds patients 65 and older: No
[2020-03-22] MEDS: HEPARIN NA (PORCINE) 5,000 UNITS/ML 1ML VIAL SQ SCH ×3 (05:43→21:23)
[2020-03-22] MEDS: METOCLOPRAMIDE HCL INJECTION 10 MG/2 ML VIAL IVPUSH PRN ×2 (05:46→13:59)
[2020-03-22] MEDS: INSULIN SLIDING SCALE (NOVOLOG) 1 VIAL SQ SCH ×3 (06:31→16:33)
[2020-03-22] MEDS: SODIUM BICARBONATE 650 MG TABLET PO SCH (06:33)
[2020-03-22 07:01] LABS: HEMATOCRIT 27.1 % (32.4-45.2); HEMOGLOBIN 8.7 GM/dL (10.7-15.3); MCH 24.9 pg (25.7-33.7); MEAN CELL VOLUME 77.7 fl (80-96); MEAN PLT VOLUME 7.8 fl (7.5-11.1); PLATELET COUNT 309 K/MM3 (134-434); RBC 3.49 M/mm3 (3.60-5.2); WHITE BLOOD COUNT 8.8 K/mm3 (4.0-10.0)
[2020-03-22] MEDS ORDERED: DEXTROSE 5%-WATER - 50 ML IVPB ONE (09:08)
[2020-03-22] MEDS ORDERED: cefTRIAXone SODIUM 1 GM VIAL ONE (09:08)
[2020-03-22] MEDS: PANTOPRAZOLE SODIUM 40 MG VIAL IVPUSH SCH ×2 (09:24→21:23)
--- NOTE | 2020-03-22 10:42 | DS ---
Physical Exam: SUBJECTIVE: Patient seen and examined OBJECTIVE: Vital Signs Temperature 98.1 F 03/22/20 09:21 Pulse Rate 82 03/22/20 09:21 Respiratory Rate 18 03/22/20 09:21 Blood Pressure 152/67 03/22/20 09:21 O2 Sat by Pulse Oximetry (%) 97 03/22/20 06:00 PHYSICAL EXAM GENERAL: The patient is awake, alert, and fully oriented, in no acute distress. HEAD: Normal with no signs of trauma. EYES: PERRL, extraocular movements intact, sclera anicteric, conjunctiva clear. ENT: Ears normal, nares patent, oropharynx clear without exudates, moist mucous membranes. NECK: Trachea midline, full range of motion, supple. LUNGS: Breath sounds equal, clear to auscultation bilaterally, no wheezes, no crackles, no accessory muscle use. HEART: Regular rate and rhythm, S1, S2 without murmur, rub or gallop. ABDOMEN: Soft, nontender, nondistended, normoactive bowel sounds, no guarding, no rebound, no hepatosplenomegaly, no masses. EXTREMITIES: 2+ pulses, warm, well-perfused, no edema. NEUROLOGICAL: Cranial nerves II through XII grossly intact. Normal speech, gait not observed. PSYCH: Normal mood, normal affect. SKIN: Warm, dry, normal turgor, no rashes or lesions noted. LABS CBC,CMP WBC 8.8 K/mm3 (4.0-10.0) 03/22/20 06:35 RBC 3.49 M/mm3 (3.60-5.2) L 03/22/20 06:35 Hgb 8.7 GM/dL (10.7-15.3) L 03/22/20 06:35 Hct 27.1 % (32.4-45.2) L 03/22/20 06:35 MCV 77.7 fl (80-96) L 03/22/20 06:35 MCH 24.9 pg (25.7-33.7) L 03/22/20 06:35 MCHC 32.0 g/dl (32.0-36.0) 03/22/20 06:35 RDW 20.0 % (11.6-15.6) H 03/22/20 06:35 Plt Count 309 K/MM3 (134-434) 10/06/20 06:35 MPV 7.8 fl (7.5-11.1) 03/22/20 06:35 Absolute Neuts (auto) 6.4 K/mm3 (1.5-8.0) 03/20/20 06:15 Neutrophils % 65.6 % (42.8-82.8) 03/20/20 06:15 Lymphocytes % 26.8 % (8-40) 03/20/20 06:15 Monocytes % 7.2 % (3.8-10.2) 03/20/20 06:15 Eosinophils % 0.2 % (0-4.5) 03/20/20 06:15 Basophils % 0.2 % (0-2.0) 03/20/20 06:15 Nucleated RBC % 0 % (0-0) 03/20/20 06:15 Retic Count 0.75 % (0.5-1.5) 03/19/20 12:25 Sodium 139 mmol/L (136-145) 03/22/20 02:45 Potassium 3.4 mmol/L (3.5-5.1) L 03/22/20 02:45 Chloride 112 mmol/L (98-107) H 03/22/20 02:45 Carbon Dioxide 17 mmol/L (21-32) L 03/22/20 02:45 Anion Gap 9 MMOL/L (8-16) 03/22/20 02:45 BUN 51.3 mg/dL (7-18) H 03/22/20 02:45 Creatinine 2.9 mg/dL (0.55-1.3) H 03/22/20 02:45 Est GFR (CKD-EPI)AfAm 18.64 03/22/20 02:45 Est GFR (CKD-EPI)NonAf 16.08 03/22/20 02:45 POC Glucometer 323 UNITS (80-120) 03/22/20 05:37 Random Glucose 305 mg/dL (74-106) H 03/22/20 02:45 Hemoglobin A1c % 6.7 % (4.2-6.3) H 03/19/20 06:00 Lactic Acid 0.9 mmol/L (0.4-2.0) 03/18/20 15:00 Calcium 8.0 mg/dL (8.5-10.1) L 03/22/20 02:45 Phosphorus 2.0 mg/dL (2.5-4.9) L 03/21/20 10:15 Magnesium 1.5 mg/dL (1.8-2.4) L 03/21/20 10:15 Iron 36 ug/dL (50-175) L 03/19/20 12:25 TIBC 114 ug/dL (250-450) L 03/19/20 12:25 Iron Saturation 31 % (17.5-39) 03/19/20 12:25 Unsaturated IBC 78 ug/dL (200-275) L 03/19/20 12:25 Ferritin 395.8 ng/ml (8-388) H 03/19/20 12:25 Total Bilirubin 0.3 mg/dL (0.2-1) 03/22/20 02:45 AST 12 U/L (15-37) L 03/22/20 02:45 ALT 9 U/L (13-61) L 03/22/20 02:45 Alkaline Phosphatase 121 U/L (45-117) H 03/22/20 02:45 Creatine Kinase 25 U/L (26-192) L 03/18/20 15:00 Troponin I < 0.02 ng/ml (0.00-0.05) 03/18/20 15:00 Total Protein 6.5 g/dl (6.4-8.2) 03/22/20 02:45 Albumin 1.7 g/dl (3.4-5.0) L 03/22/20 02:45 Lipase 137 U/L (73-393) 03/18/20 15:00 HOSPITAL COURSE: Date of Admission:03/18/20 Date of Discharge: 03/22/20
--- NOTE | 2020-03-22 10:51 | CONSULT ---
- Consultation REQUESTING PROVIDER: CONSULT REQUEST: We have been asked to surgically evaluate this patient for Right foot TMA. Hospitalist:Karin Monaco HISTORY OF PRESENT ILLNESS: The patient is s/p R TMA in November of this year. History obtained from her ER chart and papers from the nursing facility. She was sent to [facility] from [facility] for evaluation of nausea and emesis and was found to have a UTI. There is documentation from a celebrity manager on 03/17 of this month. Local wound care was silver algniate and dry dressing 3 times weekly. She is nonmobile requiring jin lift for OOB to chair services. PMHx: IDDM, HTN, HLD, PVD, neuropathy, GERD, depression, incontinence, Left charcot ankle PSHx: Right foot TMA s/p colonoscopy 02/29/20-ileocecal value/ascending colon polpectomy Home Medications Medication Instructions Recorded Acetaminophen [Tylenol -] 500 mg PO Q8H 03/18/20 Insulin Glargine,Hum.rec.anlog 13 unit SQ HS 03/18/20 [Lantus] Loperamide HCl [Imodium -] 2 mg PO DAILY 03/18/20 Losartan Potassium 100 mg PO DAILY 03/18/20 Multivitamins [Tab-A-Vit -] 1 tab PO DAILY 03/18/20 Nystatin Cream [Mycostatin] 1 applic TP BID 03/18/20 Omeprazole Magnesium [Prilosec] 20 mg PO DAILY 03/18/20 Ondansetron HCl [Zofran] 4 mg PO TID 03/18/20 Pravastatin Sodium [Pravachol (Nf)] 20 mg PO HS 03/18/20 Tolterodine Tartrate 2 mg PO BID 03/18/20 Zinc Oxide 0 gm TP DAILY 03/18/20 Allergies Allergy/AdvReac Type Severity Reaction Status Date / Time adhesive tape Allergy Intermediate Itching Verified 02/29/20 11:16 REVIEW OF SYSTEMS: Unable to obtain, pt is a poor historian PHYSICAL EXAM: GENERAL: Awake, alert, and follows commands, in no acute distress. LOWER EXTREMITIES: RLE: +2 DP(palpable) +1 PT-with doppler. Healed TMA, medial aspect with small scabbed tissue(size of pencil) lateral aspect with suture palpable. No drainage, erythema or tenderness noted. LLE: +2 dp pulse, +2 PT(with doppler) No lesions noted. Vital Signs Temperature 98.1 F 03/22/20 09:21 Pulse Rate 82 03/22/20 09:21 Respiratory Rate 18 03/22/20 09:21 Blood Pressure 152/67 03/22/20 09:21 O2 Sat by Pulse Oximetry (%) 95 03/22/20 09:00 Lab Results WBC 8.8 K/mm3 (4.0-10.0) 03/22/20 06:35 RBC 3.49 M/mm3 (3.60-5.2) L 03/22/20 06:35 Hgb 8.7 GM/dL (10.7-15.3) L 03/22/20 06:35 Hct 27.1 % (32.4-45.2) L 03/22/20 06:35 MCV 77.7 fl (80-96) L 03/22/20 06:35 MCHC 32.0 g/dl (32.0-36.0) 03/22/20 06:35 RDW 20.0 % (11.6-15.6) H 03/22/20 06:35 Plt Count 309 K/MM3 (134-434) 03/22/20 06:35 Sodium 139 mmol/L (136-145) 03/22/20 02:45 Potassium 3.4 mmol/L (3.5-5.1) L 03/22/20 02:45 Chloride 112 mmol/L (98-107) H 03/22/20 02:45 Carbon Dioxide 17 mmol/L (21-32) L 03/22/20 02:45 Anion Gap 9 MMOL/L (8-16) 03/22/20 02:45 BUN 51.3 mg/dL (7-18) H 03/22/20 02:45 Creatinine 2.9 mg/dL (0.55-1.3) H 03/22/20 02:45 Random Glucose 305 mg/dL (74-106) H 03/22/20 02:45 Calcium 8.0 mg/dL (8.5-10.1) L 03/22/20 02:45 Microbiology 03/18/20 15:42 Urine - Urine Clean Catch Urine Culture - Final Klebsiella Oxytoca Problem List - Problems (1) History of transmetatarsal amputation of right foot Assessment/Plan: Right TMA healing well, no need for surgical intervention. Off load heels off of the bed with frequent positioning Follow up with surgeon as per routine schedule who completed the TMA. D/w Dr. Pate Problems reviewed: Yes Code(s): Z89.431 - ACQUIRED ABSENCE OF RIGHT FOOT (2) UTI (urinary tract infection) Assessment/Plan: Antibiotics as needed for UTI as per ID Problems reviewed: Yes Code(s): N39.0 - URINARY TRACT INFECTION, SITE NOT SPECIFIED
--- NOTE | 2020-03-22 13:26 | PN ---
Progress Note, Physician History of Present Illness: Pt seen and examined at bedside. She is awake and alert. She feels that her appetite is improving. - Current Medication List Current Medications: Active Medications Heparin Sodium (Porcine) (Heparin -) 5,000 unit SQ TID [facility] Last Admin: 03/22/20 05:43 Dose: Not Given Documented by: Amino Acids (Clinimix -) 1,000 mls @ 50 mls/hr IV Q12H [facility] Last Admin: 03/22/20 13:23 Dose: Not Given Documented by: Sodium Chloride (1/2 Normal Saline) 1,000 mls @ 42 mls/hr IV ASDIR [facility] Last Admin: 03/21/20 14:00 Dose: 42 mls/hr Documented by: Insulin Aspart (Novolog Vial Sliding Scale -) 1 vial SQ TIDAC [facility]; Protocol Last Admin: 03/22/20 11:39 Dose: 4 units Documented by: Metoclopramide HCl (Reglan Injection -) 5 mg IVPUSH Q8H PRN PRN Reason: NAUSEA Last Admin: 03/22/20 05:46 Dose: 5 mg Documented by: Pantoprazole Sodium (Protonix Iv) 40 mg IVPUSH BID [facility] Last Admin: 03/22/20 09:24 Dose: 40 mg Documented by: Potassium Chloride (Potassium Chloride Oral Liquid) 40 meq PO ONCE ONE Stop: 03/22/20 13:24 Sodium Bicarbonate (Sodium Bicarbonate -) 650 mg PO TID [facility] Last Admin: 03/22/20 06:33 Dose: Not Given Documented by: - Objective Vital Signs: Vital Signs Temperature 98.1 F 03/22/20 09:21 Pulse Rate 82 03/22/20 09:21 Respiratory Rate 18 03/22/20 09:21 Blood Pressure 152/67 03/22/20 09:21 O2 Sat by Pulse Oximetry (%) 95 03/22/20 09:00 Constitutional: Yes: Calm Eyes: Yes: Conjunctiva Clear HENT: Yes: Atraumatic Neck: Yes: Supple Cardiovascular: Yes: S1, S2 Respiratory: Yes: CTA Bilaterally Gastrointestinal: Yes: Soft Genitourinary: Yes: Kay Present, Hematuria Musculoskeletal: Yes: WNL Edema: No Integumentary: Yes: WNL Neurological: Yes: Oriented Psychiatric: Yes: Oriented Labs: CBC, BMP 03/22/20 06:35 03/22/20 02:45 Problem List - Problems (1) Hyperkalemia Code(s): E87.5 - HYPERKALEMIA (2) Vomiting Code(s): R11.10 - VOMITING, UNSPECIFIED (3) HTN (hypertension) Code(s): I10 - ESSENTIAL (PRIMARY) HYPERTENSION (4) Diabetes mellitus Code(s): E11.9 - TYPE 2 DIABETES MELLITUS WITHOUT COMPLICATIONS (5) ROSALES (acute kidney injury) Code(s): N17.9 - ACUTE KIDNEY FAILURE, UNSPECIFIED Assessment/Plan Current Medications Generic Name Dose Route Start Last Admin Trade Name Freq PRN Reason Stop Dose Admin Heparin Sodium (Porcine) 5,000 unit 03/18/20 22:00 03/22/20 05:43 Heparin - SQ Not Given TID [facility] Amino Acids 1,000 mls @ 50 mls/hr 03/20/20 13:52 03/22/20 13:23 Clinimix - IV Not Given Q12H [facility] Sodium Chloride 1,000 mls @ 42 mls/hr 03/20/20 14:00 03/21/20 14:00 12 Normal Saline IV 42 mls/hr ASDIR [facility] Administration Insulin Aspart 1 vial 03/19/20 11:00 03/22/20 11:39 Novolog Vial Sliding Scale - SQ 4 units TIDAC [facility] Administration Protocol Metoclopramide HCl 5 mg 03/21/20 13:06 03/22/20 05:46 Reglan Injection - IVPUSH 5 mg Q8H PRN Administration NAUSEA Pantoprazole Sodium 40 mg 03/20/20 10:15 03/22/20 09:24 Protonix Iv IVPUSH 40 mg BID [facility] Administration Potassium Chloride 40 meq 03/22/20 13:23 Potassium Chloride Oral Liquid PO 03/22/20 13:24 ONCE ONE Sodium Bicarbonate 650 mg 03/20/20 14:00 03/22/20 06:33 Sodium Bicarbonate - PO Not Given TID [facility] Impression 1. ROSALES 2. hyperkalemia 3. nausea and vomiting 4. met acidosis 5. DM 6. HTN 7. HLD 8. PVD Plan - replace potassium - renal function improving - urology eval - monitor urine output - repeat labs in am - check mag - hydro on ultrasound - will follow
--- NOTE | 2020-03-22 13:28 | PN ---
Progress Note, Physician Chief Complaint: ASLEEP COMFORTABLE TOLERATING PO DIET - Current Medication List Current Medications: Active Medications Heparin Sodium (Porcine) (Heparin -) 5,000 unit SQ TID [facility] Last Admin: 03/22/20 05:43 Dose: Not Given Documented by: Amino Acids (Clinimix -) 1,000 mls @ 50 mls/hr IV Q12H [facility] Last Admin: 03/22/20 13:23 Dose: Not Given Documented by: Sodium Chloride (1/2 Normal Saline) 1,000 mls @ 42 mls/hr IV ASDIR [facility] Last Admin: 03/21/20 14:00 Dose: 42 mls/hr Documented by: Insulin Aspart (Novolog Vial Sliding Scale -) 1 vial SQ TIDAC [facility]; Protocol Last Admin: 03/22/20 11:39 Dose: 4 units Documented by: Metoclopramide HCl (Reglan Injection -) 5 mg IVPUSH Q8H PRN PRN Reason: NAUSEA Last Admin: 03/22/20 05:46 Dose: 5 mg Documented by: Pantoprazole Sodium (Protonix Iv) 40 mg IVPUSH BID [facility] Last Admin: 03/22/20 09:24 Dose: 40 mg Documented by: Potassium Chloride (Potassium Chloride Oral Liquid) 40 meq PO ONCE ONE Stop: 03/22/20 13:24 Sodium Bicarbonate (Sodium Bicarbonate -) 650 mg PO TID [facility] Last Admin: 03/22/20 06:33 Dose: Not Given Documented by: - Objective Vital Signs: Vital Signs Temperature 98.1 F 03/22/20 09:21 Pulse Rate 82 03/22/20 09:21 Respiratory Rate 18 03/22/20 09:21 Blood Pressure 152/67 03/22/20 09:21 O2 Sat by Pulse Oximetry (%) 95 03/22/20 09:00 Constitutional: Yes: Mild Distress Cardiovascular: Yes: Pulse Irregular Respiratory: Yes: Diminished, On Nasal O2 Gastrointestinal: Yes: Soft Genitourinary: Yes: Incontinence Musculoskeletal: Yes: Muscle Weakness Integumentary: Yes: Pressure Ulcer Wound/Incision: Yes: Dressing Dry and Intact ...Motor Strength: LLE, RLE Labs: CBC, BMP 03/22/20 06:35 03/22/20 02:45 Problem List - Problems (1) Acute renal failure Code(s): N17.9 - ACUTE KIDNEY FAILURE, UNSPECIFIED (2) ROSALES (acute kidney injury) Code(s): N17.9 - ACUTE KIDNEY FAILURE, UNSPECIFIED (3) Colon adenomas Code(s): D12.6 - BENIGN NEOPLASM OF COLON, UNSPECIFIED (4) Diabetes mellitus Code(s): E11.9 - TYPE 2 DIABETES MELLITUS WITHOUT COMPLICATIONS (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
--- NOTE | 2020-03-22 13:30 | PN.GI ---
GI Progress Note Subjective: Persistent dark hematuria noted No nausea/vomiting No abdominal pain - Objective Vital Signs: Vital Signs Temperature 98.1 F 03/22/20 09:21 Pulse Rate 82 03/22/20 09:21 Respiratory Rate 18 03/22/20 09:21 Blood Pressure 152/67 03/22/20 09:21 O2 Sat by Pulse Oximetry (%) 95 03/22/20 09:00 Constitutional: Calm Eyes: No: Sclera Icterus Cardiovascular: Yes: Regular Rate and Rhythm Respiratory: Yes: Diminished (at bases bilaterally) Neurological: Yes: Alert Labs: CBC, BMP 03/22/20 06:35 03/22/20 02:45 Problem List - Problems (1) Vomiting Assessment/Plan: No further vomiting Would advance diet as tolerated if there are no urological procedures planned, would otherwise keep on clear liquids Code(s): R11.10 - VOMITING, UNSPECIFIED
[2020-03-22] MEDS: POTASSIUM CHLORIDE ORAL LIQUID 20 MEQ/15 ML PO ONE ×2 (13:51→18:35)
[2020-03-22] MEDS: SODIUM CHLORIDE 0.45% 1,000 ML IV SCH (13:51)
[2020-03-22] MEDS: MAGNESIUM OXIDE 400 MG TABLET (FP) PO SCH ×2 (13:51→18:35)
--- NOTE | 2020-03-22 14:06 | PN ---
Progress Note (short form) - Note Progress Note: ID CONSULT DICTATED UTI ESBL GROSS HEMATURIA CKD DM ERTAPENEM 500MG IVPB Q24H UROLOGY EVALUATION
[2020-03-22] MEDS ORDERED: MAGNESIUM SULF 50% (8.12 MEQ/2 ML-1 GM VIAL) IVPB ONE (14:35)
--- NOTE | 2020-03-22 14:41 | CONS ---
INFECTIOUS DISEASE CONSULTATION DATE OF CONSULTATION: DATE OF DICTATION: 03/22/2020 HISTORY: The patient is a 69-year-old female who is evaluated for urinary tract infection. She was admitted to the hospital on March 18, 2020, after onset of nausea, vomiting and poor oral intake. She was diagnosed with diabetic gastroparesis versus gastric outlet obstruction. She was noted to be dehydrated with a markedly elevated serum potassium. In addition, urine analysis showed many white cells. CAT scan of the abdomen and pelvis showed gallstones without evidence of cholecystitis and a left hydronephrosis without evidence of obstructing stone. On March 22 patient developed dark bloody urine. Urine analysis showed many white cells and many red cells. She was empirically treated with ceftriaxone. Urine culture is now positive for ESBL. At the present time she is awake and alert. She has a Kay catheter in place. She continues to drain dark bloody urine. She denies any suprapubic or flank pain. No fever or chills. PAST MEDICAL HISTORY: Positive for diabetes mellitus, hypertension, hyperlipidemia, peripheral vascular disease, hysterectomy, right transmetatarsal amputation. ALLERGIES: No known allergies. MEDICATIONS: Include heparin, Reglan, Protonix. SOCIAL HISTORY: She is a nonsmoker, nondrinker. She resides at [facility] on [address]. SYSTEMS REVIEW: Neurologic: No loss of consciousness, seizure activity or focal weakness. Cardiac: Negative chest pain or palpitations. Respiratory: Negative cough or sputum production. Gastrointestinal: As per HPI. Genitourinary: As per HPI. LABORATORY DATA: White count 8.8, hematocrit 27.1, platelet count 309. BUN 51, creatinine 2.9. Urine analysis 18,300 white cells, 669 red cells. COVID-19 PCR not detected. Urine culture positive for ESBL klebsiella. CAT scan of the abdomen and pelvis as described. PHYSICAL EXAMINATION: General: She is awake and alert seated in bed. Vital Signs: Temperature 98.1, blood pressure 152/67, pulse 82 regular, respirations 18 per minute. HEENT: Sclerae are anicteric. Heart: Sounds S1, S2. Lungs: Clear. Abdomen: Soft. No suprapubic or flank tenderness. Extremities: Edema 1+. She is status post right transmetatarsal amputation. Genitourinary: Kay catheter is in place with dark bloody urine. IMPRESSION: 1. Urinary tract infection, extended spectrum beta-lactamase. 2. Gross hematuria, rule out hemorrhagic cystitis. 3. Chronic kidney disease. 4. Diabetes mellitus. Substitute ertapenem adjusted for chronic kidney disease. Urology evaluation. Will follow. Thank you for the kind referral. TYRELL NUNEZ M.D. [id number]
[2020-03-22] MEDS: KCL 10 MEQ IVPB 10 MEQ/100 ML INFUS.BAG IVPB SCH ×3 (16:46→20:00)
[2020-03-22] MEDS: ERTAPENEM SODIUM 0.5 GM in SODIUM CHLORIDE 50 ML IVPB SCH (17:54)
[2020-03-23] MEDS: HEPARIN NA (PORCINE) 5,000 UNITS/ML 1ML VIAL SQ SCH ×3 (05:36→21:34)
[2020-03-23] MEDS: INSULIN SLIDING SCALE (NOVOLOG) 1 VIAL SQ SCH ×3 (06:18→17:58)
--- NOTE | 2020-03-23 07:01 | PN.GI ---
GI Progress Note Subjective: no new complaints - still with hematuria ; no n/v tolerating clear liquid diet - Objective Vital Signs: Vital Signs Temperature 97.7 F 03/23/20 06:00 Pulse Rate 86 03/23/20 06:00 Respiratory Rate 20 03/23/20 06:00 Blood Pressure 137/78 03/23/20 06:00 O2 Sat by Pulse Oximetry (%) 98 03/23/20 06:00 Constitutional: Well Nourished, No Distress HENT: Yes: WNL Neck: Yes: WNL Cardiovascular: Yes: WNL, Regular Rate and Rhythm Respiratory: Yes: WNL, Regular, CTA Bilaterally Gastrointestinal Inspection: Yes: WNL ...Auscultate: Yes: Normoactive Bowel Sounds Extremities: Yes: WNL Edema: No Labs: CBC, BMP 03/22/20 06:35 03/22/20 02:45 Problem List - Problems (1) Hematuria Assessment/Plan: advance to low fiber diet / small frequent meals urology consultation abx as per ID Code(s): R31.9 - HEMATURIA, UNSPECIFIED (2) Diabetes mellitus Code(s): E11.9 - TYPE 2 DIABETES MELLITUS WITHOUT COMPLICATIONS (3) 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
[2020-03-23 09:17] LABS: HEMOGLOBIN 8.6 GM/dL (10.7-15.3); MCH 25.2 pg (25.7-33.7); MCHC 32.9 g/dl (32.0-36.0); MEAN CELL VOLUME 76.7 fl (80-96); PLATELET COUNT 339 K/MM3 (134-434); RBC 3.39 M/mm3 (3.60-5.2); RDW 20.3 % (11.6-15.6); WHITE BLOOD COUNT 8.7 K/mm3 (4.0-10.0)
[2020-03-23] MEDS: MAGNESIUM OXIDE 400 MG TABLET (FP) PO SCH (09:30)
[2020-03-23] MEDS: PANTOPRAZOLE SODIUM 40 MG VIAL IVPUSH SCH ×2 (09:30→21:34)
[2020-03-23 09:41] LABS: ALBUMIN 1.6 g/dl (3.4-5.0); BILIRUBIN,TOTAL 0.2 mg/dL (0.2-1); BLOOD UREA NITROGEN 35.6 mg/dL (7-18); CALCIUM 7.8 mg/dL (8.5-10.1); MAGNESIUM 1.7 mg/dL (1.8-2.4); TOT PROT 6.3 g/dl (6.4-8.2)
[2020-03-23] MEDS: ERTAPENEM SODIUM 0.5 GM in SODIUM CHLORIDE 50 ML IVPB SCH (10:29)
--- NOTE | 2020-03-23 11:05 | PN ---
Progress Note, Physician Chief Complaint: awake alert feeling better tolerating liquids - Current Medication List Current Medications: Active Medications Heparin Sodium (Porcine) (Heparin -) 5,000 unit SQ TID [facility] Last Admin: 03/23/20 05:36 Dose: Not Given Documented by: Sodium Chloride (1/2 Normal Saline) 1,000 mls @ 75 mls/hr IV ASDIR [facility] Last Admin: 03/22/20 13:51 Dose: 75 mls/hr Documented by: Ertapenem 0.5 gm/ Sodium (Chloride) 50 mls @ 100 mls/hr IVPB DAILY [facility] Last Admin: 03/23/20 10:29 Dose: 100 mls/hr Documented by: Insulin Aspart (Novolog Vial Sliding Scale -) 1 vial SQ TIDAC [facility]; Protocol Last Admin: 03/23/20 06:18 Dose: 4 units Documented by: Magnesium Oxide (Mag-Ox -) 400 mg PO DAILY [facility] Last Admin: 03/23/20 09:30 Dose: 400 mg Documented by: Metoclopramide HCl (Reglan Injection -) 5 mg IVPUSH Q8H PRN PRN Reason: NAUSEA Last Admin: 03/22/20 13:59 Dose: 5 mg Documented by: Pantoprazole Sodium (Protonix Iv) 40 mg IVPUSH BID [facility] Last Admin: 03/23/20 09:30 Dose: 40 mg Documented by: - Objective Vital Signs: Vital Signs Temperature 97.8 F 03/23/20 09:39 Pulse Rate 82 03/23/20 09:39 Respiratory Rate 18 03/23/20 09:39 Blood Pressure 143/53 L 03/23/20 09:39 O2 Sat by Pulse Oximetry (%) 98 03/23/20 06:00 Constitutional: Yes: Mild Distress Cardiovascular: Yes: Regular Rate and Rhythm Respiratory: Yes: CTA Bilaterally, On Nasal O2 Gastrointestinal: Yes: Soft, Abdomen, Obese Genitourinary: Yes: Kay Present, Incontinence Musculoskeletal: Yes: Muscle Weakness Edema: No Neurological: Yes: Pre-Existing Deficit Psychiatric: Yes: Other Labs: CBC, BMP 03/23/20 08:20 03/23/20 06:00 Problem List - Problems (1) Acute renal failure Code(s): N17.9 - ACUTE KIDNEY FAILURE, UNSPECIFIED (2) ROSALES (acute kidney injury) Code(s): N17.9 - ACUTE KIDNEY FAILURE, UNSPECIFIED (3) Colon adenomas Code(s): D12.6 - BENIGN NEOPLASM OF COLON, UNSPECIFIED (4) Diabetes mellitus Code(s): E11.9 - TYPE 2 DIABETES MELLITUS WITHOUT COMPLICATIONS (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
--- NOTE | 2020-03-23 11:07 | PN ---
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
[2020-03-23] MEDS: POTASSIUM CHLORIDE TABS 10 MEQ TABLET.ER (FP) PO SCH (11:46)
[2020-03-23] MEDS: KCL 10 MEQ IVPB 10 MEQ/100 ML INFUS.BAG IVPB SCH ×2 (11:46→13:00)
--- NOTE | 2020-03-23 13:51 | CON.GU ---
Consult Consult Specialty:: Referred by:: medicine Reason for Consultation:: hematuria and hydronephrosis - History of Present Illness Chief Complaint: hematuria and hydronephrosis History of Present Illness: 69 year old woman admitted from [place] with unrelated problem, is noted to have hematuria, CT scan with bilateral hydronephrosis but no stone. Bladder with cystitis. UA and Urine culture are positive, she otherwise denies history or current symptoms - Past Medical History Cardio/Vascular: Yes: HTN, Hyperlipdemia Gastrointestinal: Yes: Other (cecal and right colon tubular adenomas rmeoved by Dr Alvarez 03/06) Hepatobiliary: Yes: Cholelithiasis ...: No Endocrine: Yes: Diabetes Mellitus - Past Surgical History Past Surgical History: Yes: Colonoscopy (Dr Alvarez removed cecal and right colon tubular adenomas), , Hysterectomy (TAHBSO prophylactically ( FH ovarian cancer)) - Alcohol/Substance Use Hx Alcohol Use: No History of Substance Use: reports: None - Smoking History Smoking history: Never smoked Have you smoked in the past 12 months: No - Social History Usual Living Arrangement: [facility] ADL: Support Services 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 Home Medications - Allergies Allergies/Adverse Reactions: Allergies Allergy/AdvReac Type Severity Reaction Status Date / Time adhesive tape Allergy Intermediate Itching Verified 02/29/20 11:16 - Home Medications Home Medications: Ambulatory Orders Acetaminophen [Tylenol -] 500 mg PO Q8H 03/18/20 Insulin Glargine,Hum.rec.anlog [Lantus] 13 unit SQ HS 03/18/20 Loperamide HCl [Imodium -] 2 mg PO DAILY 03/18/20 Losartan Potassium 100 mg PO DAILY 03/18/20 Multivitamins [Tab-A-Vit -] 1 tab PO DAILY 03/18/20 Nystatin Cream [Mycostatin] 1 applic TP BID 03/18/20 Omeprazole Magnesium [Prilosec] 20 mg PO DAILY 03/18/20 Ondansetron HCl [Zofran] 4 mg PO TID 03/18/20 Pravastatin Sodium [Pravachol (Nf)] 20 mg PO HS 03/18/20 Tolterodine Tartrate 2 mg PO BID 03/18/20 Zinc Oxide 0 gm TP DAILY 03/18/20 Family Medical History Family History: Denies Family Hx Cancer: Mother ( ovarian cancer age 56) Other Family History: Father of alcoholic liver disease Review of Systems - Review of Systems Genitourinary: reports: Hematuria Physical Exam- Vital Signs: Vital Signs Temperature 97.8 F 03/23/20 09:39 Pulse Rate 82 03/23/20 09:39 Respiratory Rate 18 03/23/20 09:39 Blood Pressure 143/53 L 03/23/20 09:39 O2 Sat by Pulse Oximetry (%) 96 03/23/20 09:00 Constitutional: Yes: Well Nourished, No Distress Kidneys: No: Flank Pain Left, FLank Pain Right Labs: CBC, BMP 03/23/20 08:20 03/23/20 06:00 Problem List - Problems (1) Hydronephrosis Assessment/Plan: UTI related symptoms. continue antibiotics. Code(s): N13.30 - UNSPECIFIED HYDRONEPHROSIS (2) Hydronephrosis Code(s): N13.30 - UNSPECIFIED HYDRONEPHROSIS (3) Hematuria Code(s): R31.9 - HEMATURIA, UNSPECIFIED
[2020-03-23 14:07] LABS: ANTIGLOMERULAR BASEMENT MEN.AB 6 units (0-20)
[2020-03-23] MEDS: MAGNESIUM SULF 50% (8.12 MEQ/2 ML-1 GM VIAL) IVPB ONE ×2 (14:28→16:34)
[2020-03-23] MEDS: SODIUM CHLORIDE 0.45% 1,000 ML IV SCH (14:29)
[2020-03-23] MEDS: POTASSIUM CHLORIDE 20 MEQ in SODIUM CHLORIDE 0.45% 1,000 ML IV SCH ×2 (19:06→20:45)
--- NOTE | 2020-03-23 19:06 | PN ---
Progress Note, Physician History of Present Illness: Pt seen and examined at bedside. She is awake and alert. She says that her po intake is improving. - Current Medication List Current Medications: Active Medications Heparin Sodium (Porcine) (Heparin -) 5,000 unit SQ TID [facility] Last Admin: 03/23/20 14:52 Dose: Not Given Documented by: Ertapenem 0.5 gm/ Sodium (Chloride) 50 mls @ 100 mls/hr IVPB DAILY [facility] Last Admin: 03/23/20 10:29 Dose: 100 mls/hr Documented by: Potassium Chloride 20 meq/ (Sodium Chloride) 1,010 mls @ 75 mls/hr IV ASDIR [facility] Insulin Aspart (Novolog Vial Sliding Scale -) 1 vial SQ TIDAC [facility]; Protocol Last Admin: 03/23/20 17:58 Dose: Not Given Documented by: Magnesium Oxide (Mag-Ox -) 400 mg PO DAILY [facility] Last Admin: 03/23/20 09:30 Dose: 400 mg Documented by: Metoclopramide HCl (Reglan Injection -) 5 mg IVPUSH Q8H PRN PRN Reason: NAUSEA Last Admin: 03/22/20 13:59 Dose: 5 mg Documented by: Pantoprazole Sodium (Protonix Iv) 40 mg IVPUSH BID [facility] Last Admin: 03/23/20 09:30 Dose: 40 mg Documented by: Potassium Chloride (K-Dur -) 20 meq PO DAILY [facility] Last Admin: 03/23/20 11:46 Dose: Not Given Documented by: - Objective Vital Signs: Vital Signs Temperature 98.2 F 03/23/20 18:00 Pulse Rate 64 03/23/20 18:11 Respiratory Rate 20 03/23/20 18:11 Blood Pressure 167/71 03/23/20 18:11 O2 Sat by Pulse Oximetry (%) 96 03/23/20 09:00 Constitutional: Yes: Calm Eyes: Yes: Conjunctiva Clear HENT: Yes: Atraumatic Cardiovascular: Yes: S1, S2 Respiratory: Yes: CTA Bilaterally Gastrointestinal: Yes: Normal Bowel Sounds, Soft Genitourinary: Yes: Kay Present Edema: No Neurological: Yes: Oriented Psychiatric: Yes: Oriented Labs: CBC, BMP 03/23/20 08:20 03/23/20 06:00 Problem List - Problems (1) Hyperkalemia Code(s): E87.5 - HYPERKALEMIA (2) Vomiting Code(s): R11.10 - VOMITING, UNSPECIFIED (3) HTN (hypertension) Code(s): I10 - ESSENTIAL (PRIMARY) HYPERTENSION (4) Diabetes mellitus Code(s): E11.9 - TYPE 2 DIABETES MELLITUS WITHOUT COMPLICATIONS (5) ROSALES (acute kidney injury) Code(s): N17.9 - ACUTE KIDNEY FAILURE, UNSPECIFIED Assessment/Plan Current Medications Generic Name Dose Route Start Last Admin Trade Name Freq PRN Reason Stop Dose Admin Heparin Sodium (Porcine) 5,000 unit 03/18/20 22:00 03/23/20 14:52 Heparin - SQ Not Given TID [facility] Ertapenem 0.5 gm/ Sodium 50 mls @ 100 mls/hr 03/22/20 15:00 03/23/20 10:29 Chloride IVPB 100 mls/hr DAILY [facility] Administration Potassium Chloride 20 meq/ 1,010 mls @ 75 mls/hr 03/23/20 19:04 Sodium Chloride IV ASDIR [facility] Insulin Aspart 1 vial 03/19/20 11:00 03/23/20 17:58 Novolog Vial Sliding Scale - SQ Not Given TIDAC [facility] Protocol Magnesium Oxide 400 mg 03/22/20 13:30 03/23/20 09:30 Mag-Ox - PO 400 mg DAILY [facility] Administration Metoclopramide HCl 5 mg 03/21/20 13:06 03/22/20 13:59 Reglan Injection - IVPUSH 5 mg Q8H PRN Administration NAUSEA Pantoprazole Sodium 40 mg 03/20/20 10:15 03/23/20 09:30 Protonix Iv IVPUSH 40 mg BID [facility] Administration Potassium Chloride 20 meq 03/23/20 11:15 03/23/20 11:46 K-Dur - PO Not Given DAILY [facility] Impression 1. ROSALES 2. hyperkalemia 3. nausea and vomiting 4. met acidosis 5. DM 6. HTN 7. HLD 8. PVD Plan - renal function improving - cont fluids, add potassium - repeat labs in am - urine is clearer - monitor urine output - hydro on ultrasound - will follow
--- NOTE | 2020-03-23 23:45 | PN ---
Progress Note, Physician History of Present Illness: AWAKE IN BED KIRKL[place] ALERT OFFERS NO COMLAINTS YA IN PLACE URINE CONCENTRATED, NOT HEMORRHAGIC NO FEVER/CHILLS - Current Medication List Current Medications: Active Medications Heparin Sodium (Porcine) (Heparin -) 5,000 unit SQ TID [facility] Last Admin: 03/23/20 21:34 Dose: Not Given Documented by: Ertapenem 0.5 gm/ Sodium (Chloride) 50 mls @ 100 mls/hr IVPB DAILY [facility] Last Admin: 03/23/20 10:29 Dose: 100 mls/hr Documented by: Potassium Chloride 20 meq/ (Sodium Chloride) 1,010 mls @ 75 mls/hr IV Q13H [facility] Last Admin: 03/23/20 20:45 Dose: Not Given Documented by: Insulin Aspart (Novolog Vial Sliding Scale -) 1 vial SQ TIDAC [facility]; Protocol Last Admin: 03/23/20 17:58 Dose: Not Given Documented by: Magnesium Oxide (Mag-Ox -) 400 mg PO DAILY [facility] Last Admin: 03/23/20 09:30 Dose: 400 mg Documented by: Metoclopramide HCl (Reglan Injection -) 5 mg IVPUSH Q8H PRN PRN Reason: NAUSEA Last Admin: 03/22/20 13:59 Dose: 5 mg Documented by: Pantoprazole Sodium (Protonix Iv) 40 mg IVPUSH BID [facility] Last Admin: 03/23/20 21:34 Dose: Not Given Documented by: Potassium Chloride (K-Dur -) 20 meq PO DAILY [facility] Last Admin: 03/23/20 11:46 Dose: Not Given Documented by: - Objective Vital Signs: Vital Signs Temperature 98.0 F 03/23/20 22:00 Pulse Rate 74 03/23/20 22:00 Respiratory Rate 20 03/23/20 22:00 Blood Pressure 148/68 03/23/20 22:00 O2 Sat by Pulse Oximetry (%) 98 03/23/20 22:00 Constitutional: Yes: No Distress, Obese Eyes: Yes: Conjunctiva Clear Cardiovascular: Yes: Regular Rate and Rhythm, S1, S2 Respiratory: Yes: CTA Bilaterally Gastrointestinal: Yes: Normal Bowel Sounds, Soft Edema: Yes Labs: CBC, BMP 03/23/20 08:20 03/23/20 06:00 Assessment/Plan UTI ESBL R/O HEMORRHAGIC CYSTITIS CKD DM CONTINUE ERTAPENEM, ADJUSTED FOR RENAL FAILURE CONSULTATION NOTED
[2020-03-24] MEDS: HEPARIN NA (PORCINE) 5,000 UNITS/ML 1ML VIAL SQ SCH ×3 (06:44→21:51)
[2020-03-24] MEDS: INSULIN SLIDING SCALE (NOVOLOG) 1 VIAL SQ SCH ×3 (06:45→17:23)
[2020-03-24 08:20] LABS: POTASSIUM 3.3 mmol/L (3.5-5.1)
[2020-03-24 08:26] LABS: ALBUMIN 1.7 g/dl (3.4-5.0); BILIRUBIN,TOTAL 0.2 mg/dL (0.2-1); BLOOD UREA NITROGEN 27.4 mg/dL (7-18); CREATININE 1.8 mg/dL (0.55-1.3); MAGNESIUM 1.7 mg/dL (1.8-2.4); TOT PROT 6.7 g/dl (6.4-8.2)
[2020-03-24] MEDS: MAGNESIUM OXIDE 400 MG TABLET (FP) PO SCH (09:17)
[2020-03-24] MEDS: POTASSIUM CHLORIDE TABS 10 MEQ TABLET.ER (FP) PO SCH (09:17)
[2020-03-24] MEDS: ERTAPENEM SODIUM 0.5 GM in SODIUM CHLORIDE 50 ML IVPB SCH (09:39)
[2020-03-24] MEDS: METOCLOPRAMIDE HCL INJECTION 10 MG/2 ML VIAL IVPUSH PRN (09:39)
[2020-03-24] MEDS: POTASSIUM CHLORIDE 20 MEQ in SODIUM CHLORIDE 0.45% 1,000 ML IV SCH (09:40)
[2020-03-24] MEDS: PANTOPRAZOLE SODIUM 40 MG VIAL IVPUSH SCH ×2 (09:40→21:51)
--- NOTE | 2020-03-24 13:30 | PN.GI ---
GI Progress Note Subjective: covering for Dr Short. no new complaints - no n/v tolerating clear liquid diet - Objective Vital Signs: Vital Signs Temperature 98.0 F 03/24/20 07:57 Pulse Rate 75 03/24/20 07:57 Respiratory Rate 20 03/24/20 08:02 Blood Pressure 147/58 L 03/24/20 07:57 O2 Sat by Pulse Oximetry (%) 96 03/24/20 08:02 Constitutional: Well Nourished, No Distress, Calm Eyes: Yes: WNL, Conjunctiva Clear, EOM Intact HENT: Yes: Atraumatic, Normocephalic Neck: Yes: Supple, Trachea Midline Cardiovascular: Yes: WNL, Regular Rate and Rhythm Respiratory: Yes: WNL, Regular, CTA Bilaterally Gastrointestinal Inspection: Yes: WNL ...Auscultate: Yes: Normoactive Bowel Sounds Labs: CBC, BMP 03/23/20 08:20 03/24/20 06:02 Problem List - Problems (1) Gastroparesis diabeticorum Assessment/Plan: made aware to follow up with Dr Alvarez Code(s): E11.43 - TYPE 2 DIABETES W DIABETIC AUTONOMIC (POLY)NEUROPATHY; K31.84 - GASTROPARESIS (2) Diabetes mellitus Code(s): E11.9 - TYPE 2 DIABETES MELLITUS WITHOUT COMPLICATIONS
--- NOTE | 2020-03-24 14:06 | PN ---
Progress Note, Physician History of Present Illness: LETHARGIC TODAY OFFERS NO COMLAINTS YA IN PLACE URINE CONCENTRATED, NOT HEMORRHAGIC NO FEVER/CHILLS - Current Medication List Current Medications: Active Medications Heparin Sodium (Porcine) (Heparin -) 5,000 unit SQ TID [facility] Last Admin: 03/24/20 06:44 Dose: Not Given Documented by: Ertapenem 0.5 gm/ Sodium (Chloride) 50 mls @ 100 mls/hr IVPB DAILY [facility] Last Admin: 03/24/20 09:39 Dose: 100 mls/hr Documented by: Potassium Chloride 20 meq/ (Sodium Chloride) 1,010 mls @ 75 mls/hr IV Q13H [facility] Last Admin: 03/24/20 09:40 Dose: 75 mls/hr Documented by: Insulin Aspart (Novolog Vial Sliding Scale -) 1 vial SQ TIDAC [facility]; Protocol Last Admin: 03/24/20 11:14 Dose: 4 units Documented by: Magnesium Oxide (Mag-Ox -) 400 mg PO DAILY [facility] Last Admin: 03/24/20 09:17 Dose: 400 mg Documented by: Metoclopramide HCl (Reglan Injection -) 5 mg IVPUSH Q8H PRN PRN Reason: NAUSEA Last Admin: 03/24/20 09:39 Dose: 5 mg Documented by: Pantoprazole Sodium (Protonix Iv) 40 mg IVPUSH BID [facility] Last Admin: 03/24/20 09:40 Dose: 40 mg Documented by: Potassium Chloride (K-Dur -) 20 meq PO DAILY [facility] Last Admin: 03/24/20 09:17 Dose: 20 meq Documented by: - Objective Vital Signs: Vital Signs Temperature 98.0 F 03/24/20 07:57 Pulse Rate 75 03/24/20 07:57 Respiratory Rate 20 03/24/20 08:02 Blood Pressure 147/58 L 03/24/20 07:57 O2 Sat by Pulse Oximetry (%) 96 03/24/20 08:02 Constitutional: Yes: No Distress Eyes: Yes: Conjunctiva Clear Cardiovascular: Yes: Regular Rate and Rhythm, S1, S2 Respiratory: Yes: CTA Bilaterally Gastrointestinal: Yes: Normal Bowel Sounds, Soft. No: Tenderness Edema: No Labs: CBC, BMP 03/23/20 08:20 03/24/20 06:02 Assessment/Plan UTI ESBL R/O HEMORRHAGIC CYSTITIS CKD DM CONTINUE ERTAPENEM, ADJUSTED FOR RENAL FAILURE CONSULTATION NOTED
[2020-03-24] MEDS ORDERED: POTASSIUM CHLORIDE 20 MEQ in SODIUM CHLORIDE 0.45% 1,000 ML IV SCH (14:21)
--- NOTE | 2020-03-24 14:21 | PN ---
Progress Note, Physician History of Present Illness: Pt seen and examined at bedside. She feels that her PO intake is improving. - Current Medication List Current Medications: Active Medications Heparin Sodium (Porcine) (Heparin -) 5,000 unit SQ TID [facility] Last Admin: 03/24/20 06:44 Dose: Not Given Documented by: Ertapenem 0.5 gm/ Sodium (Chloride) 50 mls @ 100 mls/hr IVPB DAILY [facility] Last Admin: 03/24/20 09:39 Dose: 100 mls/hr Documented by: Potassium Chloride 20 meq/ (Sodium Chloride) 1,010 mls @ 75 mls/hr IV Q13H [facility] Last Admin: 03/24/20 09:40 Dose: 75 mls/hr Documented by: Insulin Aspart (Novolog Vial Sliding Scale -) 1 vial SQ TIDAC [facility]; Protocol Last Admin: 03/24/20 11:14 Dose: 4 units Documented by: Magnesium Oxide (Mag-Ox -) 400 mg PO DAILY [facility] Last Admin: 03/24/20 09:17 Dose: 400 mg Documented by: Metoclopramide HCl (Reglan Injection -) 5 mg IVPUSH Q8H PRN PRN Reason: NAUSEA Last Admin: 03/24/20 09:39 Dose: 5 mg Documented by: Pantoprazole Sodium (Protonix Iv) 40 mg IVPUSH BID [facility] Last Admin: 03/24/20 09:40 Dose: 40 mg Documented by: Potassium Chloride (K-Dur -) 20 meq PO DAILY [facility] Last Admin: 03/24/20 09:17 Dose: 20 meq Documented by: - Objective Vital Signs: Vital Signs Temperature 98.0 F 03/24/20 07:57 Pulse Rate 75 03/24/20 07:57 Respiratory Rate 20 03/24/20 08:02 Blood Pressure 147/58 L 03/24/20 07:57 O2 Sat by Pulse Oximetry (%) 96 03/24/20 08:02 Constitutional: Yes: Calm Eyes: Yes: Conjunctiva Clear HENT: Yes: Atraumatic Neck: Yes: Supple Cardiovascular: Yes: S1, S2 Respiratory: Yes: CTA Bilaterally Gastrointestinal: Yes: Normal Bowel Sounds, Soft Genitourinary: Yes: Kay Present Musculoskeletal: Yes: Muscle Weakness Edema: No Neurological: Yes: Oriented Psychiatric: Yes: Oriented Labs: CBC, BMP 03/23/20 08:20 03/24/20 06:02 Problem List - Problems (1) Hyperkalemia Code(s): E87.5 - HYPERKALEMIA (2) Vomiting Code(s): R11.10 - VOMITING, UNSPECIFIED (3) HTN (hypertension) Code(s): I10 - ESSENTIAL (PRIMARY) HYPERTENSION (4) Diabetes mellitus Code(s): E11.9 - TYPE 2 DIABETES MELLITUS WITHOUT COMPLICATIONS (5) ROSALES (acute kidney injury) Code(s): N17.9 - ACUTE KIDNEY FAILURE, UNSPECIFIED Assessment/Plan Current Medications Generic Name Dose Route Start Last Admin Trade Name Freq PRN Reason Stop Dose Admin Heparin Sodium (Porcine) 5,000 unit 03/18/20 22:00 03/24/20 06:44 Heparin - SQ Not Given TID [facility] Ertapenem 0.5 gm/ Sodium 50 mls @ 100 mls/hr 03/22/20 15:00 03/24/20 09:39 Chloride IVPB 100 mls/hr DAILY [facility] Administration Potassium Chloride 20 meq/ 1,010 mls @ 75 mls/hr 03/23/20 19:30 03/24/20 09:40 Sodium Chloride IV 75 mls/hr Q13H [facility] Administration Insulin Aspart 1 vial 03/19/20 11:00 03/24/20 11:14 Novolog Vial Sliding Scale - SQ 4 units TIDAC [facility] Administration Protocol Magnesium Oxide 400 mg 03/22/20 13:30 03/24/20 09:17 Mag-Ox - PO 400 mg DAILY [facility] Administration Metoclopramide HCl 5 mg 03/21/20 13:06 03/24/20 09:39 Reglan Injection - IVPUSH 5 mg Q8H PRN Administration NAUSEA Pantoprazole Sodium 40 mg 03/20/20 10:15 03/24/20 09:40 Protonix Iv IVPUSH 40 mg BID [facility] Administration Potassium Chloride 20 meq 03/23/20 11:15 03/24/20 09:17 K-Dur - PO 20 meq DAILY [facility] Administration Impression 1. ROSALES 2. hyperkalemia 3. nausea and vomiting 4. met acidosis 5. DM 6. HTN 7. HLD 8. PVD Plan - replace potassium - replace mag - cont fluids, can decrease rate - repeat labs in am - urine is clearer - monitor urine output - will follow
[2020-03-24] MEDS ORDERED: MAGNESIUM SULF 50% (8.12 MEQ/2 ML-1 GM VIAL) IVPB ONE (14:22)
[2020-03-24] MEDS: KCL 10 MEQ IVPB 10 MEQ/100 ML INFUS.BAG IVPB SCH ×3 (14:55→18:53)
[2020-03-24 16:08] LABS: ATYPICAL pANCA <1:20 titer (Neg:<1:20); C-ANCA <1:20 titer (Neg:<1:20)
[2020-03-25] MEDS: SODIUM CHLORIDE 0.45%/POT 20 MEQ/1,000 ML INFUS.BAG IV SCH ×2 (06:50→22:13)
[2020-03-25] MEDS: HEPARIN NA (PORCINE) 5,000 UNITS/ML 1ML VIAL SQ SCH ×2 (06:50→14:12)
[2020-03-25] MEDS: INSULIN SLIDING SCALE (NOVOLOG) 1 VIAL SQ SCH ×3 (06:51→17:29)
[2020-03-25 07:37] LABS: ALBUMIN 1.8 g/dl (3.4-5.0); BILIRUBIN,TOTAL 0.2 mg/dL (0.2-1); BLOOD UREA NITROGEN 20.9 mg/dL (7-18); CALCIUM 7.6 mg/dL (8.5-10.1); CREATININE 1.7 mg/dL (0.55-1.3); MAGNESIUM 1.8 mg/dL (1.8-2.4); POTASSIUM 3.5 mmol/L (3.5-5.1); TOT PROT 6.4 g/dl (6.4-8.2)
[2020-03-25] MEDS: POTASSIUM CHLORIDE TABS 10 MEQ TABLET.ER (FP) PO SCH (09:04)
[2020-03-25] MEDS: MAGNESIUM OXIDE 400 MG TABLET (FP) PO SCH (09:04)
[2020-03-25] MEDS: PANTOPRAZOLE SODIUM 40 MG VIAL IVPUSH SCH ×2 (09:18→22:13)
[2020-03-25] MEDS: ERTAPENEM SODIUM 0.5 GM in SODIUM CHLORIDE 50 ML IVPB SCH (09:40)
--- NOTE | 2020-03-25 09:56 | PN ---
Progress Note, Physician - Current Medication List Current Medications: Active Medications Heparin Sodium (Porcine) (Heparin -) 5,000 unit SQ TID [facility] Last Admin: 03/25/20 06:50 Dose: Not Given Documented by: Ertapenem 0.5 gm/ Sodium (Chloride) 50 mls @ 100 mls/hr IVPB DAILY [facility] Last Admin: 03/25/20 09:40 Dose: 100 mls/hr Documented by: Potassium Chloride/Sodium Chloride (1/2ns+20meq Kcl) 20 meq in 1,000 mls @ 60 mls/hr IV Q16H [facility] Last Admin: 03/25/20 06:50 Dose: Not Given Documented by: Insulin Aspart (Novolog Vial Sliding Scale -) 1 vial SQ TIDAC [facility]; Protocol Last Admin: 03/25/20 06:51 Dose: 4 units Documented by: Magnesium Oxide (Mag-Ox -) 400 mg PO DAILY [facility] Last Admin: 03/25/20 09:04 Dose: 400 mg Documented by: Metoclopramide HCl (Reglan Injection -) 5 mg IVPUSH Q8H PRN PRN Reason: NAUSEA Last Admin: 03/24/20 09:39 Dose: 5 mg Documented by: Pantoprazole Sodium (Protonix Iv) 40 mg IVPUSH BID [facility] Last Admin: 03/25/20 09:18 Dose: 40 mg Documented by: Potassium Chloride (K-Dur -) 20 meq PO DAILY [facility] Last Admin: 03/25/20 09:04 Dose: 20 meq Documented by: - Objective Vital Signs: Vital Signs Temperature 97.9 F 03/25/20 08:10 Pulse Rate 66 03/25/20 08:10 Respiratory Rate 18 03/25/20 08:13 Blood Pressure 158/77 03/25/20 08:10 O2 Sat by Pulse Oximetry (%) 97 03/25/20 08:13 Cardiovascular: Yes: S1, S2 Respiratory: Yes: Regular, CTA Bilaterally Gastrointestinal: Yes: Normal Bowel Sounds, Soft Labs: CBC, BMP 03/23/20 08:20 03/25/20 06:05 Problem List - Problems (1) Vomiting Assessment/Plan: - Improved -Probably Gastroparesis -Diet per gi -GI consult appreciated Code(s): R11.10 - VOMITING, UNSPECIFIED (2) ROSALES (acute kidney injury) Assessment/Plan: - due to intractable vomiting - on admission BUN/Cr 87.8/6.9, improved Laboratory Tests 03/21/20 03/23/20 03/25/20 10:15 06:00 06:05 BUN 57.0 H 35.6 H 20.9 H Creatinine 3.6 H 2.0 H 1.7 H - Nephro, Dr. Gtz is following, recs appreciated - will continue to monitor Code(s): N17.9 - ACUTE KIDNEY FAILURE, UNSPECIFIED (3) Diabetes mellitus Assessment/Plan: -SSI and bgm -HbA1c 6.7 Code(s): E11.9 - TYPE 2 DIABETES MELLITUS WITHOUT COMPLICATIONS (4) HTN (hypertension) Assessment/Plan: Vital Signs Period Temp Pulse Resp BP Sys/Puga Pulse Ox Last 24 Hr 97.7 F-98.5 F 66-158 18-20 158-170/59-77 96-98 Code(s): I10 - ESSENTIAL (PRIMARY) HYPERTENSION (5) Hyperkalemia Assessment/Plan: -on admission K+ 7, improved to 5.1 --5 today -s/p Ca gluc, insulin 10u + D50, Lokelma x 2 -EKG: NSR no ST/T wave changes Laboratory Tests 03/21/20 03/22/20 03/25/20 10:15 02:45 06:05 Potassium 3.9 3.4 L 3.5 Code(s): E87.5 - HYPERKALEMIA (6) UTI (urinary tract infection) Assessment/Plan: -UA LE 3+, Blood 3+, WBC 89489, RBC 861, Bacteria 6446, UCx: Lactose fermenting (prelim) -continue Rocephin 1gm D#2 03/20/20 12:20 Urine - Urine - Catheterized Urine Culture - Final Klebsiella Pneumoniae - Esbl 03/18/20 15:42 Urine - Urine Clean Catch Urine Culture - Final Klebsiella Oxytoca Code(s): N39.0 - URINARY TRACT INFECTION, SITE NOT SPECIFIED
[2020-03-25] MEDS ORDERED: INSULIN (NOVOLOG) ASPART 100 UNITS/ML 10ML VIAL ONE (11:33)
--- NOTE | 2020-03-25 14:50 | PN ---
Progress Note, Physician History of Present Illness: Pt seen and examined at bedside. She denies shortness of breath. She is awake and alert. - Current Medication List Current Medications: Active Medications Heparin Sodium (Porcine) (Heparin -) 5,000 unit SQ TID [facility] Last Admin: 03/25/20 14:12 Dose: 5,000 unit Documented by: Ertapenem 0.5 gm/ Sodium (Chloride) 50 mls @ 100 mls/hr IVPB DAILY [facility] Last Admin: 03/25/20 09:40 Dose: 100 mls/hr Documented by: Potassium Chloride/Sodium Chloride (1/2ns+20meq Kcl) 20 meq in 1,000 mls @ 60 mls/hr IV Q16H [facility] Last Admin: 03/25/20 06:50 Dose: Not Given Documented by: Insulin Aspart (Novolog Vial Sliding Scale -) 1 vial SQ TIDAC [facility]; Protocol Last Admin: 03/25/20 11:36 Dose: 4 units Documented by: Magnesium Oxide (Mag-Ox -) 400 mg PO DAILY [facility] Last Admin: 03/25/20 09:04 Dose: 400 mg Documented by: Metoclopramide HCl (Reglan Injection -) 5 mg IVPUSH Q8H PRN PRN Reason: NAUSEA Last Admin: 03/24/20 09:39 Dose: 5 mg Documented by: Pantoprazole Sodium (Protonix Iv) 40 mg IVPUSH BID [facility] Last Admin: 03/25/20 09:18 Dose: 40 mg Documented by: Potassium Chloride (K-Dur -) 20 meq PO DAILY [facility] Last Admin: 03/25/20 09:04 Dose: 20 meq Documented by: - Objective Vital Signs: Vital Signs Temperature 97.9 F 03/25/20 08:10 Pulse Rate 66 03/25/20 08:10 Respiratory Rate 18 03/25/20 08:13 Blood Pressure 158/77 03/25/20 08:10 O2 Sat by Pulse Oximetry (%) 97 03/25/20 08:13 Constitutional: Yes: Calm Eyes: Yes: Conjunctiva Clear HENT: Yes: Atraumatic Neck: Yes: Supple Cardiovascular: Yes: S1, S2 Respiratory: Yes: CTA Bilaterally Gastrointestinal: Yes: Soft Genitourinary: Yes: Kay Present Musculoskeletal: Yes: Muscle Weakness Edema: No Neurological: Yes: Oriented Psychiatric: Yes: Oriented Labs: CBC, BMP 03/23/20 08:20 03/25/20 06:05 Problem List - Problems (1) Hyperkalemia Code(s): E87.5 - HYPERKALEMIA (2) Vomiting Code(s): R11.10 - VOMITING, UNSPECIFIED (3) HTN (hypertension) Code(s): I10 - ESSENTIAL (PRIMARY) HYPERTENSION (4) Diabetes mellitus Code(s): E11.9 - TYPE 2 DIABETES MELLITUS WITHOUT COMPLICATIONS (5) ROSALES (acute kidney injury) Code(s): N17.9 - ACUTE KIDNEY FAILURE, UNSPECIFIED Assessment/Plan Current Medications Generic Name Dose Route Start Last Admin Trade Name Freq PRN Reason Stop Dose Admin Heparin Sodium (Porcine) 5,000 unit 03/18/20 22:00 03/25/20 14:12 Heparin - SQ 5,000 unit TID [facility] Administration Ertapenem 0.5 gm/ Sodium 50 mls @ 100 mls/hr 03/22/20 15:00 03/25/20 09:40 Chloride IVPB 100 mls/hr DAILY [facility] Administration Potassium Chloride/Sodium Chloride 20 meq in 1,000 mls @ 60 mls/hr 03/25/20 03:14 03/25/20 06:50 1/2ns+20meq Kcl IV Not Given Q16H [facility] Insulin Aspart 1 vial 03/19/20 11:00 03/25/20 11:36 Novolog Vial Sliding Scale - SQ 4 units TIDAC [facility] Administration Protocol Magnesium Oxide 400 mg 03/22/20 13:30 03/25/20 09:04 Mag-Ox - PO 400 mg DAILY [facility] Administration Metoclopramide HCl 5 mg 03/21/20 13:06 03/24/20 09:39 Reglan Injection - IVPUSH 5 mg Q8H PRN Administration NAUSEA Pantoprazole Sodium 40 mg 03/20/20 10:15 03/25/20 09:18 Protonix Iv IVPUSH 40 mg BID [facility] Administration Potassium Chloride 20 meq 03/23/20 11:15 03/25/20 09:04 K-Dur - PO 20 meq DAILY [facility] Administration Impression 1. ROSALES 2. hyperkalemia 3. nausea and vomiting 4. met acidosis 5. DM 6. HTN 7. HLD 8. PVD Plan - cont fluids - cont to monitor renal function - cont to monitor lytes - encourage po intake - repeat labs in am - monitor urine output
--- NOTE | 2020-03-25 23:27 | PN ---
Progress Note, Physician History of Present Illness: AWAKE, ALERT IN BED OFFERS NO COMLAINTS YA IN PLACE URINE CONCENTRATED, NOT HEMORRHAGIC NO FEVER/CHILLS AZOTEMIA IMPROVED - Current Medication List Current Medications: Active Medications Ertapenem 0.5 gm/ Sodium (Chloride) 50 mls @ 100 mls/hr IVPB DAILY [facility] Last Admin: 03/25/20 09:40 Dose: 100 mls/hr Documented by: Potassium Chloride/Sodium Chloride (1/2ns+20meq Kcl) 20 meq in 1,000 mls @ 60 mls/hr IV Q16H [facility] Last Admin: 03/25/20 22:13 Dose: 60 mls/hr Documented by: Insulin Aspart (Novolog Vial Sliding Scale -) 1 vial SQ TIDAC [facility]; Protocol Last Admin: 03/25/20 17:29 Dose: 2 units Documented by: Magnesium Oxide (Mag-Ox -) 400 mg PO DAILY [facility] Last Admin: 03/25/20 09:04 Dose: 400 mg Documented by: Metoclopramide HCl (Reglan Injection -) 5 mg IVPUSH Q8H PRN PRN Reason: NAUSEA Last Admin: 03/24/20 09:39 Dose: 5 mg Documented by: Pantoprazole Sodium (Protonix Iv) 40 mg IVPUSH BID [facility] Last Admin: 03/25/20 22:13 Dose: 40 mg Documented by: Potassium Chloride (K-Dur -) 20 meq PO DAILY [facility] Last Admin: 03/25/20 09:04 Dose: 20 meq Documented by: - Objective Vital Signs: Vital Signs Temperature 97.8 F 03/25/20 17:44 Pulse Rate 69 03/25/20 20:42 Respiratory Rate 18 03/25/20 20:42 Blood Pressure 156/67 03/25/20 20:42 O2 Sat by Pulse Oximetry (%) 97 03/25/20 17:44 Constitutional: Yes: No Distress, Obese Eyes: Yes: Conjunctiva Clear Cardiovascular: Yes: Regular Rate and Rhythm, S1, S2 Respiratory: Yes: CTA Bilaterally Gastrointestinal: Yes: Normal Bowel Sounds, Soft Labs: CBC, BMP 03/23/20 08:20 03/25/20 06:05 Assessment/Plan UTI ESBL R/O HEMORRHAGIC CYSTITIS CKD DM CONTINUE ERTAPENEM, ADJUSTED FOR RENAL FAILURE CONSULTATION NOTED
[2020-03-26] MEDS: SODIUM CHLORIDE 0.45%/POT 20 MEQ/1,000 ML INFUS.BAG IV SCH ×2 (03:57→12:17)
[2020-03-26] MEDS: INSULIN SLIDING SCALE (NOVOLOG) 1 VIAL SQ SCH ×3 (06:43→17:55)
[2020-03-26] MEDS: POTASSIUM CHLORIDE TABS 10 MEQ TABLET.ER (FP) PO SCH (09:06)
[2020-03-26] MEDS: MAGNESIUM OXIDE 400 MG TABLET (FP) PO SCH (09:07)
[2020-03-26] MEDS: PANTOPRAZOLE SODIUM 40 MG VIAL IVPUSH SCH ×2 (10:19→21:29)
[2020-03-26] MEDS: ERTAPENEM SODIUM 0.5 GM in SODIUM CHLORIDE 50 ML IVPB SCH (11:45)
--- NOTE | 2020-03-26 13:58 | PN ---
Progress Note, Physician History of Present Illness: Seen and examined at the bedside awake and alert offers no acute complaints tolerating diet no N/V/D no sob, cp making urine - Current Medication List Current Medications: Active Medications Ertapenem 0.5 gm/ Sodium (Chloride) 50 mls @ 100 mls/hr IVPB DAILY [facility] Last Admin: 03/26/20 11:45 Dose: 100 mls/hr Documented by: Insulin Aspart (Novolog Vial Sliding Scale -) 1 vial SQ TIDAC [facility]; Protocol Last Admin: 03/26/20 11:47 Dose: 2 units Documented by: Magnesium Oxide (Mag-Ox -) 400 mg PO DAILY [facility] Last Admin: 03/26/20 09:07 Dose: 400 mg Documented by: Metoclopramide HCl (Reglan Injection -) 5 mg IVPUSH Q8H PRN PRN Reason: NAUSEA Last Admin: 03/24/20 09:39 Dose: 5 mg Documented by: Pantoprazole Sodium (Protonix Iv) 40 mg IVPUSH BID [facility] Last Admin: 03/26/20 10:19 Dose: 40 mg Documented by: Potassium Chloride (K-Dur -) 20 meq PO DAILY [facility] Last Admin: 03/26/20 09:06 Dose: 20 meq Documented by: Sodium Bicarbonate (Sodium Bicarbonate -) 650 mg PO DAILY [facility] - Objective Vital Signs: Vital Signs Temperature 97.5 F L 03/26/20 10:00 Pulse Rate 77 03/26/20 10:00 Respiratory Rate 20 03/26/20 10:00 Blood Pressure 159/76 03/26/20 10:00 O2 Sat by Pulse Oximetry (%) 100 03/26/20 10:00 Constitutional: Yes: No Distress HENT: Yes: Atraumatic Neck: Yes: Supple Respiratory: Yes: Regular Gastrointestinal: Yes: Soft Extremities: No: Cyanosis Edema: No Neurological: Yes: Alert, Oriented Labs: CBC, BMP 03/23/20 08:20 03/25/20 06:05 Assessment/Plan Impression 1. ROSALES 2. hyperkalemia 3. nausea and vomiting 4. met acidosis 5. DM 6. HTN 7. HLD 8. PVD Plan Renal function significalty improved can hold IV fliuds and trend renal function on oral diet alone start sodium bicarbonate 650mg daily for acidosis Trend renal function and electrolytes daily Demond Rivera DO
--- NOTE | 2020-03-26 14:23 | PN ---
Progress Note, Physician Chief Complaint: Nausea + Vomiting ROSALES UTI Anemia History of Present Illness: 69 year old female came in to [facility] from [facility] with cc of N/V s/p R TMA which has been progressively worsening. Pt was also found to be in acute renal failure with Cr of 7.0 now down to 1.7 and K+ of 7.1 now down to 3.5. CT scan with bilateral hydronephrosis but no stone. Bladder with cystitis. Pt was also found to have UTI + ESBL and evaluated by ID and started on ertapenem, today being day 5. Pt has been evaluated by GI, thought the cause of her N/V was 2/2 to either diabetic gastroparesis or nephrotic syndrome. - Current Medication List Current Medications: Active Medications Ertapenem 0.5 gm/ Sodium (Chloride) 50 mls @ 100 mls/hr IVPB DAILY [facility] Last Admin: 03/26/20 11:45 Dose: 100 mls/hr Documented by: Insulin Aspart (Novolog Vial Sliding Scale -) 1 vial SQ TIDAC [facility]; Protocol Last Admin: 03/26/20 11:47 Dose: 2 units Documented by: Magnesium Oxide (Mag-Ox -) 400 mg PO DAILY [facility] Last Admin: 03/26/20 09:07 Dose: 400 mg Documented by: Metoclopramide HCl (Reglan Injection -) 5 mg IVPUSH Q8H PRN PRN Reason: NAUSEA Last Admin: 03/24/20 09:39 Dose: 5 mg Documented by: Pantoprazole Sodium (Protonix Iv) 40 mg IVPUSH BID [facility] Last Admin: 03/26/20 10:19 Dose: 40 mg Documented by: Potassium Chloride (K-Dur -) 20 meq PO DAILY [facility] Last Admin: 03/26/20 09:06 Dose: 20 meq Documented by: Sodium Bicarbonate (Sodium Bicarbonate -) 650 mg PO DAILY [facility] - Objective Vital Signs: Vital Signs Temperature 97.5 F L 03/26/20 10:00 Pulse Rate 77 03/26/20 10:00 Respiratory Rate 20 03/26/20 10:00 Blood Pressure 159/76 03/26/20 10:00 O2 Sat by Pulse Oximetry (%) 100 03/26/20 10:00 Constitutional: Yes: Well Nourished, No Distress, Calm Cardiovascular: Yes: Regular Rate and Rhythm Respiratory: Yes: Regular, CTA Bilaterally Gastrointestinal: Yes: Normal Bowel Sounds, Soft Genitourinary: Yes: WNL Musculoskeletal: Yes: Muscle Weakness Edema: No Peripheral Pulses WNL: Yes Neurological: Yes: Alert, Oriented Psychiatric: Yes: Alert, Oriented Labs: CBC, BMP 03/23/20 08:20 03/25/20 06:05 Problem List - Problems (1) Acute renal failure Assessment/Plan: -Nephrology on board -Monitor Cr trend Problems reviewed: Yes Code(s): N17.9 - ACUTE KIDNEY FAILURE, UNSPECIFIED (2) Diabetes mellitus Assessment/Plan: -A1c at 6.7 -BGM AC HS -Diabetic low sodium diet -ISS Problems reviewed: Yes Code(s): E11.9 - TYPE 2 DIABETES MELLITUS WITHOUT COMPLICATIONS (3) Gastroparesis diabeticorum Assessment/Plan: -Reglan 5 mg IVP TID , change to schedule as pt is still nauseous Problems reviewed: Yes Code(s): E11.43 - TYPE 2 DIABETES W DIABETIC AUTONOMIC (POLY)NEUROPATHY; K31.84 - GASTROPARESIS (4) History of transmetatarsal amputation of right foot Assessment/Plan: -Seen by surgery Problems reviewed: Yes Code(s): Z89.431 - ACQUIRED ABSENCE OF RIGHT FOOT (5) Hydronephrosis Assessment/Plan: -Seen by Urology, no surgical intervention recommended at this time Problems reviewed: Yes Code(s): N13.30 - UNSPECIFIED HYDRONEPHROSIS (6) Hyperkalemia Assessment/Plan: -resolved -Monitor trend -was hypokalemic, started on KCl 20 meq po daily -nephrology on board Problems reviewed: Yes Code(s): E87.5 - HYPERKALEMIA (7) Nausea and vomiting Assessment/Plan: -Reglan 5 mg TID stormy -GI to re-evaluate -COVID 19 PCR negative Problems reviewed: Yes Code(s): R11.2 - NAUSEA WITH VOMITING, UNSPECIFIED (8) UTI (urinary tract infection) Assessment/Plan: -UC: + ESBL -ID consult appreciated -Continue ertapenem day 5/7 Problems reviewed: Yes Code(s): N39.0 - URINARY TRACT INFECTION, SITE NOT SPECIFIED (9) HTN (hypertension) Assessment/Plan: -restart amlodipine 5 mg po daily Problems reviewed: Yes Code(s): I10 - ESSENTIAL (PRIMARY) HYPERTENSION Assessment/Plan See problem list
[2020-03-26] MEDS: amLODIPine BESYLATE 5 MG TABLET (FP) PO SCH (17:14)
[2020-03-26] MEDS: SODIUM BICARBONATE 650 MG TABLET PO SCH (17:14)
[2020-03-26] MEDS ORDERED: ONDANSETRON 4 MG/2 ML VIAL IVPUSH ONE (17:34)
[2020-03-26] MEDS ORDERED: amLODIPine BESYLATE 5 MG TABLET (FP) PO ONE (17:35)
[2020-03-26] MEDS: METOCLOPRAMIDE HCL INJECTION 10 MG/2 ML VIAL IVPUSH PRN (17:56)
--- NOTE | 2020-03-26 23:53 | PN ---
Progress Note, Physician History of Present Illness: AWAKE, LETHARGIC IN BED OFFERS NO COMLAINTS YA IN PLACE URINE CONCENTRATED, NOT HEMORRHAGIC NO FEVER/CHILLS AZOTEMIA IMPROVED - Current Medication List Current Medications: Active Medications Amlodipine Besylate (Norvasc -) 5 mg PO DAILY [facility] Last Admin: 03/26/20 17:14 Dose: Not Given Documented by: Ertapenem 0.5 gm/ Sodium (Chloride) 50 mls @ 100 mls/hr IVPB DAILY [facility] Last Admin: 03/26/20 11:45 Dose: 100 mls/hr Documented by: Insulin Aspart (Novolog Vial Sliding Scale -) 1 vial SQ TIDAC [facility]; Protocol Last Admin: 03/26/20 17:55 Dose: 4 units Documented by: Magnesium Oxide (Mag-Ox -) 400 mg PO DAILY [facility] Last Admin: 03/26/20 09:07 Dose: 400 mg Documented by: Metoclopramide HCl (Reglan Injection -) 5 mg IVPUSH Q8H PRN PRN Reason: NAUSEA Last Admin: 03/26/20 17:56 Dose: 5 mg Documented by: Pantoprazole Sodium (Protonix Iv) 40 mg IVPUSH BID [facility] Last Admin: 03/26/20 21:29 Dose: 40 mg Documented by: Potassium Chloride (K-Dur -) 20 meq PO DAILY [facility] Last Admin: 03/26/20 09:06 Dose: 20 meq Documented by: Sodium Bicarbonate (Sodium Bicarbonate -) 650 mg PO DAILY [facility] Last Admin: 03/26/20 17:14 Dose: Not Given Documented by: - Objective Vital Signs: Vital Signs Temperature 97.8 F 03/26/20 18:00 Pulse Rate 78 03/26/20 18:00 Respiratory Rate 20 03/26/20 18:00 Blood Pressure 173/75 H 03/26/20 18:00 O2 Sat by Pulse Oximetry (%) 100 03/26/20 10:00 Constitutional: Yes: No Distress Cardiovascular: Yes: Regular Rate and Rhythm, S1, S2 Respiratory: Yes: CTA Bilaterally Gastrointestinal: Yes: Normal Bowel Sounds, Soft, Abdomen, Obese Labs: CBC, BMP 03/23/20 08:20 03/25/20 06:05 Assessment/Plan UTI ESBL R/O HEMORRHAGIC CYSTITIS CKD DM CONTINUE ERTAPENEM, ADJUSTED FOR RENAL FAILURE
[2020-03-27] MEDS: INSULIN SLIDING SCALE (NOVOLOG) 1 VIAL SQ SCH ×3 (07:35→16:58)
[2020-03-27 09:33] LABS: BASO % 0.4 % (0-2.0); EOS % 2.2 % (0-4.5); HEMATOCRIT 27.9 % (32.4-45.2); HEMOGLOBIN 9.1 GM/dL (10.7-15.3); LYMPH % 28.2 % (8-40); MCH 24.6 pg (25.7-33.7); MCHC 32.5 g/dl (32.0-36.0); MEAN CELL VOLUME 75.9 fl (80-96); MEAN PLT VOLUME 7.7 fl (7.5-11.1); MONO % 6.9 % (3.8-10.2); NEUT % 62.3 % (42.8-82.8); PLATELET COUNT 346 K/MM3 (134-434); RBC 3.68 M/mm3 (3.60-5.2); RDW 21.3 % (11.6-15.6); WHITE BLOOD COUNT 7.5 K/mm3 (4.0-10.0)
[2020-03-27] MEDS: PANTOPRAZOLE SODIUM 40 MG VIAL IVPUSH SCH ×2 (10:30→22:01)
[2020-03-27] MEDS: ERTAPENEM SODIUM 0.5 GM in SODIUM CHLORIDE 50 ML IVPB SCH (10:30)
[2020-03-27] MEDS: amLODIPine BESYLATE 5 MG TABLET (FP) PO SCH (10:30)
[2020-03-27] MEDS: METOCLOPRAMIDE HCL INJECTION 10 MG/2 ML VIAL IVPUSH PRN (10:30)
[2020-03-27 10:34] LABS: ANISOCYTOSIS 2+; MACROCYTOSIS 0; PLATELET ESTIMATE NORMAL
[2020-03-27 10:35] LABS: ALBUMIN 1.8 g/dl (3.4-5.0); BILIRUBIN,TOTAL 0.3 mg/dL (0.2-1); BLOOD UREA NITROGEN 15.1 mg/dL (7-18); CALCIUM 7.2 mg/dL (8.5-10.1); CREATININE 1.6 mg/dL (0.55-1.3); MAGNESIUM 1.6 mg/dL (1.8-2.4); PHOSPHOROUS 1.4 mg/dL (2.5-4.9); TOT PROT 6.8 g/dl (6.4-8.2)
[2020-03-27 11:00] LABS: POTASSIUM 2.8 mmol/L (3.5-5.1)
[2020-03-27] MEDS: SODIUM BICARBONATE 650 MG TABLET PO SCH (11:55)
[2020-03-27] MEDS: POTASSIUM CHLORIDE TABS 10 MEQ TABLET.ER (FP) PO SCH (11:55)
[2020-03-27] MEDS: MAGNESIUM OXIDE 400 MG TABLET (FP) PO SCH (11:55)
--- NOTE | 2020-03-27 13:27 | PN ---
Progress Note, Physician History of Present Illness: Seen and examined at the bedside awake and alert offers no acute complaints tolerating diet no N/V/D no sob, cp making urine - Current Medication List Current Medications: Active Medications Amlodipine Besylate (Norvasc -) 5 mg PO DAILY [facility] Last Admin: 03/27/20 10:30 Dose: 5 mg Documented by: Ertapenem 0.5 gm/ Sodium (Chloride) 50 mls @ 100 mls/hr IVPB DAILY [facility] Last Admin: 03/27/20 10:30 Dose: 100 mls/hr Documented by: Insulin Aspart (Novolog Vial Sliding Scale -) 1 vial SQ TIDAC [facility]; Protocol Last Admin: 03/27/20 11:56 Dose: 4 units Documented by: Magnesium Oxide (Mag-Ox -) 400 mg PO DAILY [facility] Last Admin: 03/27/20 11:55 Dose: Not Given Documented by: Metoclopramide HCl (Reglan Injection -) 5 mg IVPUSH Q8H PRN PRN Reason: NAUSEA Last Admin: 03/27/20 10:30 Dose: 5 mg Documented by: Pantoprazole Sodium (Protonix Iv) 40 mg IVPUSH BID [facility] Last Admin: 03/27/20 10:30 Dose: 40 mg Documented by: Potassium Chloride (K-Dur -) 20 meq PO DAILY [facility] Last Admin: 03/27/20 11:55 Dose: Not Given Documented by: Sodium Bicarbonate (Sodium Bicarbonate -) 650 mg PO DAILY [facility] Last Admin: 03/27/20 11:55 Dose: Not Given Documented by: - Objective Vital Signs: Vital Signs Temperature 97.8 F 03/27/20 09:00 Pulse Rate 79 03/27/20 09:00 Respiratory Rate 18 03/27/20 09:00 Blood Pressure 155/67 03/27/20 09:00 O2 Sat by Pulse Oximetry (%) 99 03/27/20 09:00 Constitutional: Yes: No Distress, Calm Neck: Yes: Supple Cardiovascular: Yes: Regular Rate and Rhythm Respiratory: Yes: Regular Edema: No Labs: CBC, BMP 03/27/20 09:00 03/27/20 09:00 Assessment/Plan Impression 1. ROSALES 2. hyperkalemia/hypokalemia 3. nausea and vomiting 4. met acidosis 5. DM 6. HTN 7. HLD 8. PVD Plan Renal function improved supplament potassium orally and via IV check K in evening continue sodium bicarbonate 650mg daily for acidosis Trend renal function and electrolytes daily Demond Rivera DO
--- NOTE | 2020-03-27 13:56 | PN ---
Progress Note, Physician Chief Complaint: Nausea + Vomiting ROSALES UTI Anemia History of Present Illness: 69 year old female came in to [facility] from [facility] with cc of N/V s/p R TMA which has been progressively worsening. Pt was also found to be in acute renal failure with Cr of 7.0 now down to 1.7 and K+ of 7.1 now down to 3.5. CT scan with bilateral hydronephrosis but no stone. Bladder with cystitis. Pt was also found to have UTI + ESBL and evaluated by ID and started on ertapenem Pt has been evaluated by GI, thought the cause of her N/V was 2/2 to either diabetic gastroparesis or nephrotic syndrome. NAD still mildly nauseous Hypokalemic today K+ at 2.8 On ertapenem day 6/ - Current Medication List Current Medications: Active Medications Amlodipine Besylate (Norvasc -) 5 mg PO DAILY [facility] Last Admin: 03/27/20 10:30 Dose: 5 mg Documented by: Ertapenem 0.5 gm/ Sodium (Chloride) 50 mls @ 100 mls/hr IVPB DAILY [facility] Last Admin: 03/27/20 10:30 Dose: 100 mls/hr Documented by: Potassium Chloride (Potassium Chloride 10 Meq Premix Ivpb -) 10 meq in 100 mls @ 100 mls/hr IVPB Q60M [facility] Stop: 03/27/20 15:59 Insulin Aspart (Novolog Vial Sliding Scale -) 1 vial SQ TIDAC [facility]; Protocol Last Admin: 03/27/20 11:56 Dose: 4 units Documented by: Magnesium Oxide (Mag-Ox -) 400 mg PO DAILY [facility] Last Admin: 03/27/20 11:55 Dose: Not Given Documented by: Metoclopramide HCl (Reglan Injection -) 5 mg IVPUSH Q8H [facility] Pantoprazole Sodium (Protonix Iv) 40 mg IVPUSH BID [facility] Last Admin: 03/27/20 10:30 Dose: 40 mg Documented by: Potassium Chloride (K-Dur -) 20 meq PO DAILY [facility] Last Admin: 03/27/20 11:55 Dose: Not Given Documented by: Sodium Bicarbonate (Sodium Bicarbonate -) 650 mg PO DAILY [facility] Last Admin: 03/27/20 11:55 Dose: Not Given Documented by: - Objective Vital Signs: Vital Signs Temperature 97.8 F 03/27/20 09:00 Pulse Rate 79 10/11/20 09:00 Respiratory Rate 18 03/27/20 09:00 Blood Pressure 155/67 03/27/20 09:00 O2 Sat by Pulse Oximetry (%) 99 03/27/20 09:00 Constitutional: Yes: Well Nourished, No Distress, Calm Cardiovascular: Yes: Regular Rate and Rhythm Respiratory: Yes: Regular, CTA Bilaterally Gastrointestinal: Yes: Normal Bowel Sounds, Soft Genitourinary: Yes: Kay Present Musculoskeletal: Yes: WNL Extremities: Yes: WNL Edema: No Peripheral Pulses WNL: Yes Neurological: Yes: Alert, Oriented Psychiatric: Yes: Alert, Oriented Labs: CBC, BMP 03/27/20 09:00 03/27/20 09:00 Problem List - Problems (1) Acute renal failure Assessment/Plan: -Nephrology on board -Monitor Cr trend Problems reviewed: Yes Code(s): N17.9 - ACUTE KIDNEY FAILURE, UNSPECIFIED (2) Diabetes mellitus Assessment/Plan: -A1c at 6.7 -BGM AC HS -Diabetic low sodium diet -ISS Problems reviewed: Yes Code(s): E11.9 - TYPE 2 DIABETES MELLITUS WITHOUT COMPLICATIONS (3) Gastroparesis diabeticorum Assessment/Plan: -Reglan 5 mg IVP TID , change to schedule as pt is still nauseous -Will have GI re-evaluate Problems reviewed: Yes Code(s): E11.43 - TYPE 2 DIABETES W DIABETIC AUTONOMIC (POLY)NEUROPATHY; K31.84 - GASTROPARESIS (4) History of transmetatarsal amputation of right foot Assessment/Plan: -Seen by surgery Problems reviewed: Yes Code(s): Z89.431 - ACQUIRED ABSENCE OF RIGHT FOOT (5) Hydronephrosis Assessment/Plan: -Seen by Urology, no surgical intervention recommended at this time Problems reviewed: Yes Code(s): N13.30 - UNSPECIFIED HYDRONEPHROSIS (6) Hyperkalemia Assessment/Plan: -resolved -Monitor trend -was hypokalemic, started on KCl 20 meq po daily -nephrology on board Problems reviewed: Yes Code(s): E87.5 - HYPERKALEMIA (7) Nausea and vomiting Assessment/Plan: -Reglan 5 mg TID stormy -GI to re-evaluate -COVID 19 PCR negative Problems reviewed: Yes Code(s): R11.2 - NAUSEA WITH VOMITING, UNSPECIFIED (8) UTI (urinary tract infection) Assessment/Plan: -UC: + ESBL -ID consult appreciated -Continue ertapenem day 6/7 Problems reviewed: Yes Code(s): N39.0 - URINARY TRACT INFECTION, SITE NOT SPECIFIED (9) HTN (hypertension) Assessment/Plan: -restarted amlodipine 5 mg po daily -Monitor trend -titrate up to keep SBP goal <140 mm Hg Problems reviewed: Yes Code(s): I10 - ESSENTIAL (PRIMARY) HYPERTENSION Assessment/Plan See problem list
[2020-03-27] MEDS: METOCLOPRAMIDE HCL INJECTION 10 MG/2 ML VIAL IVPUSH SCH ×2 (14:08→22:01)
[2020-03-27] MEDS: KCL 10 MEQ IVPB 10 MEQ/100 ML INFUS.BAG IVPB SCH ×2 (14:09→15:17)
[2020-03-27 19:05] LABS: BLOOD UREA NITROGEN 15.2 mg/dL (7-18); CALCIUM 7.4 mg/dL (8.5-10.1); CREATININE 1.6 mg/dL (0.55-1.3)
[2020-03-27 20:31] LABS: POTASSIUM 2.9 mmol/L (3.5-5.1)
[2020-03-27] MEDS ORDERED: POTASSIUM CHLORIDE TABS 20 MEQ TABLET.ER (FP) PO ONE (23:47)
[2020-03-28] MEDS: KCL 10 MEQ IVPB 10 MEQ/100 ML INFUS.BAG IVPB SCH ×6 (00:23→20:00)
[2020-03-28] MEDS: METOCLOPRAMIDE HCL INJECTION 10 MG/2 ML VIAL IVPUSH SCH (05:37)
[2020-03-28] MEDS: INSULIN SLIDING SCALE (NOVOLOG) 1 VIAL SQ SCH ×3 (06:19→17:15)
[2020-03-28 06:33] LABS: ALBUMIN 1.7 g/dl (3.4-5.0); BILIRUBIN,TOTAL 0.2 mg/dL (0.2-1); BLOOD UREA NITROGEN 15.7 mg/dL (7-18); CALCIUM 7.3 mg/dL (8.5-10.1); CREATININE 1.5 mg/dL (0.55-1.3); POTASSIUM 3.3 mmol/L (3.5-5.1); TOT PROT 6.4 g/dl (6.4-8.2)
--- NOTE | 2020-03-28 09:17 | PN ---
Progress Note, Physician History of Present Illness: Nausea + Vomiting ROSALES UTI Anemia History of Present Illness: 69 year old female came in to [facility] from [facility] with cc of N/V s/p R TMA which has been progressively worsening. Pt was also found to be in acute renal failure with Cr of 7.0 now down to 1.7 and K+ of 7.1 now down to 3.5. CT scan with bilateral hydronephrosis but no stone. Bladder with cystitis. Pt was also found to have UTI + ESBL and evaluated by ID and started on ertapenem Pt has been evaluated by GI, thought the cause of her N/V was 2/2 to either diabetic gastroparesis or nephrotic syndrome. NAD still mildly nauseous Hypokalemic today K+ at 2.8 On ertapenem day 6/7 - Current Medication List Current Medications: Active Medications Amlodipine Besylate (Norvasc -) 5 mg PO DAILY [facility] Last Admin: 03/27/20 10:30 Dose: 5 mg Documented by: Ertapenem 0.5 gm/ Sodium (Chloride) 50 mls @ 100 mls/hr IVPB DAILY [facility] Last Admin: 03/27/20 10:30 Dose: 100 mls/hr Documented by: Insulin Aspart (Novolog Vial Sliding Scale -) 1 vial SQ TIDAC [facility]; Protocol Last Admin: 03/28/20 06:19 Dose: 8 units Documented by: Magnesium Oxide (Mag-Ox -) 400 mg PO DAILY [facility] Last Admin: 03/27/20 11:55 Dose: Not Given Documented by: Metoclopramide HCl (Reglan Injection -) 5 mg IVPUSH Q8H [facility] Last Admin: 03/28/20 05:37 Dose: 5 mg Documented by: Pantoprazole Sodium (Protonix Iv) 40 mg IVPUSH BID [facility] Last Admin: 03/27/20 22:01 Dose: 40 mg Documented by: Potassium Chloride (K-Dur -) 20 meq PO DAILY [facility] Last Admin: 03/27/20 11:55 Dose: Not Given Documented by: Sodium Bicarbonate (Sodium Bicarbonate -) 650 mg PO DAILY [facility] Last Admin: 03/27/20 11:55 Dose: Not Given Documented by: - Objective Vital Signs: Vital Signs Temperature 98.1 F 03/28/20 05:46 Pulse Rate 78 03/28/20 05:46 Respiratory Rate 20 03/28/20 05:46 Blood Pressure 148/58 L 03/28/20 05:46 O2 Sat by Pulse Oximetry (%) 95 03/28/20 05:46 Cardiovascular: Yes: S1, S2 Respiratory: Yes: Regular, CTA Bilaterally Gastrointestinal: Yes: Normal Bowel Sounds, Soft. No: Tenderness Labs: CBC, BMP 03/27/20 09:00 03/28/20 05:40 Problem List - Problems (1) Vomiting Code(s): R11.10 - VOMITING, UNSPECIFIED (2) ROSALES (acute kidney injury) Code(s): N17.9 - ACUTE KIDNEY FAILURE, UNSPECIFIED (3) Diabetes mellitus Code(s): E11.9 - TYPE 2 DIABETES MELLITUS WITHOUT COMPLICATIONS (4) HTN (hypertension) Code(s): I10 - ESSENTIAL (PRIMARY) HYPERTENSION (5) Hyperkalemia Code(s): E87.5 - HYPERKALEMIA (6) UTI (urinary tract infection) Code(s): N39.0 - URINARY TRACT INFECTION, SITE NOT SPECIFIED Assessment/Plan - Problems (1) Acute renal failure Assessment/Plan: -Nephrology on board -Monitor Cr trend Problems reviewed: Yes Code(s): N17.9 - ACUTE KIDNEY FAILURE, UNSPECIFIED (2) Diabetes mellitus Assessment/Plan: -A1c at 6.7 -BGM AC HS -Diabetic low sodium diet -ISS Problems reviewed: Yes Code(s): E11.9 - TYPE 2 DIABETES MELLITUS WITHOUT COMPLICATIONS (3) Gastroparesis diabeticorum Assessment/Plan: -Reglan 5 mg IVP TID , change to schedule as pt is still nauseous -Will have GI re-evaluate Problems reviewed: Yes Code(s): E11.43 - TYPE 2 DIABETES W DIABETIC AUTONOMIC (POLY)NEUROPATHY; K31.84 - GASTROPARESIS (4) History of transmetatarsal amputation of right foot Assessment/Plan: -Seen by surgery Problems reviewed: Yes Code(s): Z89.431 - ACQUIRED ABSENCE OF RIGHT FOOT (5) Hydronephrosis Assessment/Plan: -Seen by Urology, no surgical intervention recommended at this time Problems reviewed: Yes Code(s): N13.30 - UNSPECIFIED HYDRONEPHROSIS (6) Hyperkalemia Assessment/Plan: -resolved -Monitor trend -was hypokalemic, started on KCl 20 meq po daily -nephrology on board Problems reviewed: Yes Code(s): E87.5 - HYPERKALEMIA (7) Nausea and vomiting Assessment/Plan: -Reglan 5 mg TID stormy -GI to re-evaluate -COVID 19 PCR negative Problems reviewed: Yes Code(s): R11.2 - NAUSEA WITH VOMITING, UNSPECIFIED (8) UTI (urinary tract infection) Assessment/Plan: -UC: + ESBL -ID consult appreciated -Continue ertapenem day 6/7 Problems reviewed: Yes Code(s): N39.0 - URINARY TRACT INFECTION, SITE NOT SPECIFIED (9) HTN (hypertension) Assessment/Plan: -restarted amlodipine 5 mg po daily -Monitor trend -titrate up to keep SBP goal <140 mm Hg Problems reviewed: Yes Code(s): I10 - ESSENTIAL (PRIMARY) HYPERTENSION
[2020-03-28] MEDS: SODIUM BICARBONATE 650 MG TABLET PO SCH (10:19)
[2020-03-28] MEDS: PANTOPRAZOLE SODIUM 40 MG VIAL IVPUSH SCH ×2 (10:19→22:06)
[2020-03-28] MEDS: POTASSIUM CHLORIDE TABS 10 MEQ TABLET.ER (FP) PO SCH (10:19)
[2020-03-28] MEDS: ERTAPENEM SODIUM 0.5 GM in SODIUM CHLORIDE 50 ML IVPB SCH (10:19)
[2020-03-28] MEDS: amLODIPine BESYLATE 5 MG TABLET (FP) PO SCH (10:19)
[2020-03-28] MEDS: MAGNESIUM OXIDE 400 MG TABLET (FP) PO SCH (10:19)
--- NOTE | 2020-03-28 10:25 | PN.GI ---
GI Progress Note Subjective: Called to reevaluate nausea Was nauseous on saturday, no further nausea and tolerating PO Placed on standing reglan No abdominal pain - Objective Vital Signs: Vital Signs Temperature 98.1 F 03/28/20 05:46 Pulse Rate 78 03/28/20 05:46 Respiratory Rate 20 03/28/20 05:46 Blood Pressure 148/58 L 03/28/20 05:46 O2 Sat by Pulse Oximetry (%) 95 03/28/20 05:46 Constitutional: Calm Eyes: No: Sclera Icterus Cardiovascular: Yes: Regular Rate and Rhythm Respiratory: Yes: Diminished (at bases bilaterally, poor insp effort) Gastrointestinal Inspection: No: Distention ...Auscultate: Yes: Normoactive Bowel Sounds ...Palpate: Yes: Soft. No: Hepatomegaly, Splenomegaly, Tenderness Neurological: Yes: Alert Labs: CBC, BMP 03/27/20 09:00 03/28/20 05:40 Problem List - Problems (1) Nausea Assessment/Plan: Improved Blood glucose has elevated >240 on recent blood glucose studies Continue reglan 5mg. Change to PO Q8H for total 3 days Ordered upper GI series for AM to evaluate upper GI tract. Patient stated that she would think about this option. Code(s): R11.0 - NAUSEA
[2020-03-28] MEDS: METOCLOPRAMIDE HCL 10 MG TABLET (FP) PO SCH ×2 (11:30→17:08)
[2020-03-28] MEDS ORDERED: POTASSIUM CHLORIDE ORAL LIQUID 20 MEQ/15 ML PO ONE (14:43)
--- NOTE | 2020-03-28 14:52 | PN ---
Progress Note, Physician History of Present Illness: Pt seen and examined at bedside. She is tolerating diet. - Current Medication List Current Medications: Active Medications Amlodipine Besylate (Norvasc -) 5 mg PO DAILY [facility] Last Admin: 03/28/20 10:19 Dose: 5 mg Documented by: Ertapenem 0.5 gm/ Sodium (Chloride) 50 mls @ 100 mls/hr IVPB DAILY [facility] Last Admin: 03/28/20 10:19 Dose: 100 mls/hr Documented by: Insulin Aspart (Novolog Vial Sliding Scale -) 1 vial SQ TIDAC [facility]; Protocol Last Admin: 03/28/20 11:30 Dose: 6 units Documented by: Magnesium Oxide (Mag-Ox -) 400 mg PO DAILY [facility] Last Admin: 03/28/20 10:19 Dose: Not Given Documented by: Metoclopramide HCl (Reglan -) 5 mg PO TIDAC [facility] Stop: 03/31/20 10:59 Last Admin: 03/28/20 11:30 Dose: 5 mg Documented by: Multivitamins/Minerals (Theragran-M) 1 each PO DAILY [facility] Pantoprazole Sodium (Protonix Iv) 40 mg IVPUSH BID [facility] Last Admin: 03/28/20 10:19 Dose: 40 mg Documented by: Potassium Chloride (K-Dur -) 20 meq PO DAILY [facility] Last Admin: 03/28/20 10:19 Dose: Not Given Documented by: Sodium Bicarbonate (Sodium Bicarbonate -) 650 mg PO DAILY [facility] Last Admin: 03/28/20 10:19 Dose: Not Given Documented by: - Objective Vital Signs: Vital Signs Temperature 97.7 F 03/28/20 09:00 Pulse Rate 78 03/28/20 09:00 Respiratory Rate 20 03/28/20 09:00 Blood Pressure 151/64 03/28/20 09:00 O2 Sat by Pulse Oximetry (%) 99 03/28/20 09:00 Constitutional: Yes: Calm Eyes: Yes: Conjunctiva Clear HENT: Yes: Atraumatic Cardiovascular: Yes: Regular Rate and Rhythm, S1, S2 Respiratory: Yes: CTA Bilaterally Gastrointestinal: Yes: Soft Genitourinary: Yes: Kay Present Edema: Yes Edema: LLE: Trace, RLE: Trace Neurological: Yes: Oriented Psychiatric: Yes: Oriented Labs: CBC, BMP 03/27/20 09:00 03/28/20 05:40 Problem List - Problems (1) Hyperkalemia Code(s): E87.5 - HYPERKALEMIA (2) Vomiting Code(s): R11.10 - VOMITING, UNSPECIFIED (3) HTN (hypertension) Code(s): I10 - ESSENTIAL (PRIMARY) HYPERTENSION (4) Diabetes mellitus Code(s): E11.9 - TYPE 2 DIABETES MELLITUS WITHOUT COMPLICATIONS (5) ROSALES (acute kidney injury) Code(s): N17.9 - ACUTE KIDNEY FAILURE, UNSPECIFIED Assessment/Plan Current Medications Generic Name Dose Route Start Last Admin Trade Name Freq PRN Reason Stop Dose Admin Amlodipine Besylate 5 mg 03/26/20 14:30 03/28/20 10:19 Norvasc - PO 5 mg DAILY EDITH Administration Ertapenem 0.5 gm/ Sodium 50 mls @ 100 mls/hr 03/22/20 15:00 03/28/20 10:19 Chloride IVPB 100 mls/hr DAILY EDITH Administration Insulin Aspart 1 vial 03/19/20 11:00 03/28/20 11:30 Novolog Vial Sliding Scale - SQ 6 units TIDAC ED[facility] Administration Protocol Magnesium Oxide 400 mg 03/22/20 13:30 03/28/20 10:19 Mag-Ox - PO Not Given DAILY [facility] Metoclopramide HCl 5 mg 03/28/20 11:00 03/28/20 11:30 Reglan - PO 03/31/20 10:59 5 mg TIDAC EDITH Administration Multivitamins/Minerals 1 each 03/29/20 10:00 Theragran-M PO DAILY [facility] Pantoprazole Sodium 40 mg 03/20/20 10:15 03/28/20 10:19 Protonix Iv IVPUSH 40 mg BID EDITH Administration Potassium Chloride 20 meq 03/23/20 11:15 03/28/20 10:19 K-Dur - PO Not Given DAILY EDITH Potassium Chloride 40 meq 03/28/20 14:43 Potassium Chloride Oral Liquid PO 03/28/20 14:44 ONCE ONE Sodium Bicarbonate 650 mg 03/26/20 14:00 03/28/20 10:19 Sodium Bicarbonate - PO Not Given DAILY [facility] Impression 1. ROSALES 2. hyperkalemia 3. nausea and vomiting 4. met acidosis 5. DM 6. HTN 7. HLD 8. PVD Plan - replace potassium - can d/c sodium bicarb - encourage po intake - fluids while npo - repeat labs in am
--- NOTE | 2020-03-28 22:26 | PN ---
Progress Note, Physician History of Present Illness: AWAKE IN BED OFFERS NO COMLAINT NO FEVER/CHILLS AZOTEMIA IMPROVED - Current Medication List Current Medications: Active Medications Amlodipine Besylate (Norvasc -) 5 mg PO DAILY [facility] Last Admin: 03/28/20 10:19 Dose: 5 mg Documented by: Ertapenem 0.5 gm/ Sodium (Chloride) 50 mls @ 100 mls/hr IVPB DAILY [facility] Last Admin: 03/28/20 10:19 Dose: 100 mls/hr Documented by: Insulin Aspart (Novolog Vial Sliding Scale -) 1 vial SQ TIDAC [facility]; Protocol Last Admin: 03/28/20 17:15 Dose: 2 units Documented by: Magnesium Oxide (Mag-Ox -) 400 mg PO DAILY [facility] Last Admin: 03/28/20 10:19 Dose: Not Given Documented by: Metoclopramide HCl (Reglan -) 5 mg PO TIDAC [facility] Stop: 03/31/20 10:59 Last Admin: 03/28/20 17:08 Dose: 5 mg Documented by: Multivitamins/Minerals (Theragran-M) 1 each PO DAILY [facility] Pantoprazole Sodium (Protonix Iv) 40 mg IVPUSH BID [facility] Last Admin: 03/28/20 22:06 Dose: 40 mg Documented by: Potassium Chloride (K-Dur -) 20 meq PO DAILY [facility] Last Admin: 03/28/20 10:19 Dose: Not Given Documented by: - Objective Vital Signs: Vital Signs Temperature 97.9 F 03/28/20 18:24 Pulse Rate 81 03/28/20 18:24 Respiratory Rate 20 03/28/20 18:24 Blood Pressure 143/58 L 03/28/20 18:24 O2 Sat by Pulse Oximetry (%) 98 03/28/20 18:24 Constitutional: Yes: No Distress Eyes: Yes: Conjunctiva Clear Cardiovascular: Yes: Regular Rate and Rhythm, S1, S2 Respiratory: Yes: CTA Bilaterally Gastrointestinal: Yes: Normal Bowel Sounds, Soft Labs: CBC, BMP 03/27/20 09:00 03/28/20 05:40 Assessment/Plan UTI ESBL R/O HEMORRHAGIC CYSTITIS CKD DM CONTINUE ERTAPENEM, ADJUSTED FOR RENAL FAILURE
[2020-03-29] MEDS: INSULIN SLIDING SCALE (NOVOLOG) 1 VIAL SQ SCH ×3 (06:01→17:33)
[2020-03-29] MEDS: METOCLOPRAMIDE HCL 10 MG TABLET (FP) PO SCH ×3 (06:02→17:33)
[2020-03-29 07:33] LABS: ALBUMIN 1.9 g/dl (3.4-5.0); BILIRUBIN,TOTAL 0.6 mg/dL (0.2-1); BLOOD UREA NITROGEN 12.5 mg/dL (7-18); CALCIUM 7.7 mg/dL (8.5-10.1); CREATININE 1.4 mg/dL (0.55-1.3); POTASSIUM 3.7 mmol/L (3.5-5.1); TOT PROT 6.7 g/dl (6.4-8.2)
[2020-03-29] MEDS: ERTAPENEM SODIUM 0.5 GM in SODIUM CHLORIDE 50 ML IVPB SCH (10:28)
[2020-03-29] MEDS: MAGNESIUM OXIDE 400 MG TABLET (FP) PO SCH (10:28)
[2020-03-29] MEDS: POTASSIUM CHLORIDE TABS 10 MEQ TABLET.ER (FP) PO SCH (10:28)
[2020-03-29] MEDS: PANTOPRAZOLE SODIUM 40 MG VIAL IVPUSH SCH (10:29)
[2020-03-29] MEDS: amLODIPine BESYLATE 5 MG TABLET (FP) PO SCH ×2 (10:29→10:45)
[2020-03-29] MEDS: MULTIVITAMINS THER W-MINERALS COMBO TABLET (FP) PO SCH (10:29)
--- NOTE | 2020-03-29 10:46 | PN ---
Progress Note, Physician Chief Complaint: Nausea + Vomiting ROSALES UTI Anemia History of Present Illness: 69 year old female came in to R from [facility] with cc of N/V s/p R TMA which has been progressively worsening. Pt was also found to be in acute renal failure with Cr of 7.0 now down to 1.7 and K+ of 7.1 now down to 3.5. CT scan with bilateral hydronephrosis but no stone. Bladder with cystitis. Pt was also found to have UTI + ESBL and evaluated by ID and started on ertapenem Pt has been evaluated by GI, thought the cause of her N/V was 2/2 to either diabetic gastroparesis or nephrotic syndrome. NAD still mildly nauseous Hypokalemic today K+ at 2.8 On ertapenem day 6/03/29/20: Pt unable to do GI series, wasn't able to drink the contrast in radiology Pt refusing to take PO potassium and magnesium - Current Medication List Current Medications: Active Medications Amlodipine Besylate (Norvasc -) 5 mg PO DAILY [facility] Last Admin: 03/29/20 10:29 Dose: Not Given Documented by: Ertapenem 0.5 gm/ Sodium (Chloride) 50 mls @ 100 mls/hr IVPB DAILY [facility] Last Admin: 03/29/20 10:28 Dose: 100 mls/hr Documented by: Insulin Aspart (Novolog Vial Sliding Scale -) 1 vial SQ TIDAC [facility]; Protocol Last Admin: 03/29/20 06:01 Dose: Not Given Documented by: Magnesium Oxide (Mag-Ox -) 400 mg PO DAILY [facility] Last Admin: 03/29/20 10:28 Dose: Not Given Documented by: Metoclopramide HCl (Reglan -) 5 mg PO TIDAC [facility] Stop: 03/31/20 10:59 Last Admin: 03/29/20 06:02 Dose: Not Given Documented by: Multivitamins/Minerals (Theragran-M) 1 each PO DAILY [facility] Last Admin: 03/29/20 10:29 Dose: Not Given Documented by: Pantoprazole Sodium (Protonix Iv) 40 mg IVPUSH BID [facility] Last Admin: 03/29/20 10:29 Dose: 40 mg Documented by: Potassium Chloride (K-Dur -) 20 meq PO DAILY [facility] Last Admin: 03/29/20 10:28 Dose: Not Given Documented by: - Objective Vital Signs: Vital Signs Temperature 97.4 F L 03/29/20 06:14 Pulse Rate 84 03/29/20 06:14 Respiratory Rate 20 03/29/20 06:14 Blood Pressure 128/56 L 03/29/20 06:14 O2 Sat by Pulse Oximetry (%) 98 03/28/20 21:00 Constitutional: Yes: Well Nourished, No Distress, Calm HENT: Yes: Thrush Cardiovascular: Yes: Regular Rate and Rhythm Respiratory: Yes: Regular, CTA Bilaterally Gastrointestinal: Yes: Normal Bowel Sounds, Soft Genitourinary: Yes: WNL Musculoskeletal: Yes: Muscle Weakness Extremities: Yes: WNL Edema: No Peripheral Pulses WNL: Yes Neurological: Yes: Alert, Oriented Psychiatric: Yes: Alert, Oriented Labs: CBC, BMP 03/27/20 09:00 03/29/20 06:35 Problem List - Problems (1) Acute renal failure Assessment/Plan: -Nephrology on board -Monitor Cr trend Problems reviewed: Yes Code(s): N17.9 - ACUTE KIDNEY FAILURE, UNSPECIFIED (2) Diabetes mellitus Assessment/Plan: -A1c at 6.7 -BGM AC HS -Diabetic low sodium diet -ISS Problems reviewed: Yes Code(s): E11.9 - TYPE 2 DIABETES MELLITUS WITHOUT COMPLICATIONS (3) Gastroparesis diabeticorum Assessment/Plan: -Reglan 5 mg PO TID AC -GI re-eval appreicated -Unable to do GI series Problems reviewed: Yes Code(s): E11.43 - TYPE 2 DIABETES W DIABETIC AUTONOMIC (POLY)NEUROPATHY; K31.84 - GASTROPARESIS (4) History of transmetatarsal amputation of right foot Assessment/Plan: -Seen by surgery Problems reviewed: Yes Code(s): Z89.431 - ACQUIRED ABSENCE OF RIGHT FOOT (5) Hydronephrosis Assessment/Plan: -Seen by Urology, no surgical intervention recommended at this time Problems reviewed: Yes Code(s): N13.30 - UNSPECIFIED HYDRONEPHROSIS (6) Hyperkalemia Assessment/Plan: -resolved -Monitor trend -nephrology on board Problems reviewed: Yes Code(s): E87.5 - HYPERKALEMIA (7) Nausea and vomiting Assessment/Plan: -Resolved -Reglan 5 mg PO TID AC -GI re-eval appreciated -COVID 19 PCR negative -Pt unable to do GI series Problems reviewed: Yes Code(s): R11.2 - NAUSEA WITH VOMITING, UNSPECIFIED (8) UTI (urinary tract infection) Assessment/Plan: -UC: + ESBL -ID consult appreciated -Finished ertapenem day Problems reviewed: Yes Code(s): N39.0 - URINARY TRACT INFECTION, SITE NOT SPECIFIED (9) HTN (hypertension) Assessment/Plan: Alodipine 5 mg po daily -Monitor trend -titrate up to keep SBP goal <140 mm Hg Problems reviewed: Yes Code(s): I10 - ESSENTIAL (PRIMARY) HYPERTENSION (10) Thrush, oral Assessment/Plan: -Nystatin oral Problems reviewed: Yes Code(s): B37.0 - CANDIDAL STOMATITIS Assessment/Plan See problem list
[2020-03-29] MEDS: TAMSULOSIN HCL 0.4 MG CAP PO SCH (10:55)
--- NOTE | 2020-03-29 12:31 | PN ---
Progress Note, Physician History of Present Illness: Pt seen and examined at bedside. She is awake and alert. She denies shortness of breath. - Current Medication List Current Medications: Active Medications Amlodipine Besylate (Norvasc -) 5 mg PO DAILY [facility] Last Admin: 03/29/20 10:45 Dose: 5 mg Documented by: Insulin Aspart (Novolog Vial Sliding Scale -) 1 vial SQ TIDAC [facility]; Protocol Last Admin: 03/29/20 12:11 Dose: 6 units Documented by: Magnesium Oxide (Mag-Ox -) 400 mg PO DAILY [facility] Last Admin: 03/29/20 10:28 Dose: Not Given Documented by: Metoclopramide HCl (Reglan -) 5 mg PO TIDAC [facility] Stop: 03/31/20 10:59 Last Admin: 03/29/20 10:52 Dose: 5 mg Documented by: Mirtazapine (Remeron -) 7.5 mg PO [facility] Multivitamins/Minerals (Theragran-M) 1 each PO DAILY [facility] Last Admin: 03/29/20 10:29 Dose: Not Given Documented by: Nystatin (Nystatin Oral Suspension -) 500,000 units PO Q6HPO [facility] Pantoprazole Sodium (Protonix -) 40 mg PO BID [facility] Potassium Chloride (K-Dur -) 20 meq PO DAILY [facility] Last Admin: 03/29/20 10:28 Dose: Not Given Documented by: Tamsulosin HCl (Flomax -) 0.8 mg PO DAILY@0830 [facility] Last Admin: 03/29/20 10:55 Dose: 0.8 mg Documented by: - Objective Vital Signs: Vital Signs Temperature 97.3 F L 03/29/20 10:00 Pulse Rate 78 03/29/20 10:00 Respiratory Rate 18 03/29/20 10:00 Blood Pressure 123/74 03/29/20 10:00 O2 Sat by Pulse Oximetry (%) 98 03/28/20 21:00 Constitutional: Yes: Calm Eyes: Yes: Conjunctiva Clear HENT: Yes: Atraumatic Neck: Yes: Supple Cardiovascular: Yes: S1, S2 Respiratory: Yes: CTA Bilaterally Gastrointestinal: Yes: Soft, Abdomen, Obese Genitourinary: Yes: Miller Present Musculoskeletal: Yes: Muscle Weakness Edema: Yes Edema: LLE: 1+, RLE: 1+ Neurological: Yes: Oriented Psychiatric: Yes: Oriented Labs: CBC, BMP 10/11/20 09:00 03/29/20 06:35 Problem List - Problems (1) Hyperkalemia Code(s): E87.5 - HYPERKALEMIA (2) Vomiting Code(s): R11.10 - VOMITING, UNSPECIFIED (3) HTN (hypertension) Code(s): I10 - ESSENTIAL (PRIMARY) HYPERTENSION (4) Diabetes mellitus Code(s): E11.9 - TYPE 2 DIABETES MELLITUS WITHOUT COMPLICATIONS (5) ROSALES (acute kidney injury) Code(s): N17.9 - ACUTE KIDNEY FAILURE, UNSPECIFIED Assessment/Plan Current Medications Generic Name Dose Route Start Last Admin Trade Name Freq PRN Reason Stop Dose Admin Amlodipine Besylate 5 mg 03/26/20 14:30 03/29/20 10:45 Norvasc - PO 5 mg DAILY [facility]ITH Administration Insulin Aspart 1 vial 03/19/20 11:00 03/29/20 12:11 Novolog Vial Sliding Scale - SQ 6 units TIDAC EDITH Administration Protocol Magnesium Oxide 400 mg 03/22/20 13:30 03/29/20 10:28 Mag-Ox - PO Not Given DAILY [facility] Metoclopramide HCl 5 mg 03/28/20 11:00 03/29/20 10:52 Reglan - PO 03/31/20 10:59 5 mg TIDAC EDITH Administration Mirtazapine 7.5 mg 03/29/20 22:00 Remeron - PO HS [facility] Multivitamins/Minerals 1 each 03/29/20 10:00 03/29/20 10:29 Theragran-M PO Not Given DAILY [facility] Nystatin 500,000 units 03/29/20 18:00 Nystatin Oral Suspension - PO Q6HPO EDITH Pantoprazole Sodium 40 mg 03/29/20 22:00 Protonix - PO BID EDITH Potassium Chloride 20 meq 03/23/20 11:15 03/29/20 10:28 K-Dur - PO Not Given DAILY [facility] Tamsulosin HCl 0.8 mg 03/29/20 08:30 03/29/20 10:55 Flomax - PO 0.8 mg DAILY@0830 EDITH Administration Impression 1. ROSALES 2. hyperkalemia 3. nausea and vomiting 4. met acidosis 5. DM 6. HTN 7. HLD 8. PVD Plan - renal function is stabilizing - repeat labs in am - encourage po intake - d/c miller and give voiding trial - will need outpt follow up - discussed with primary team - will follow
[2020-03-29] MEDS: NYSTATIN 500,000 UNITS/5 ML SUSPENSION PO SCH (17:33)
[2020-03-29] MEDS: MIRTAZAPINE 15 MG TABLET (FP) PO SCH (22:02)
[2020-03-29] MEDS: PANTOPRAZOLE 40 MG TABLET PO SCH (22:02)
[2020-03-30] MEDS: NYSTATIN 500,000 UNITS/5 ML SUSPENSION PO SCH ×4 (00:15→17:57)
[2020-03-30] MEDS: INSULIN SLIDING SCALE (NOVOLOG) 1 VIAL SQ SCH ×3 (06:47→17:57)
[2020-03-30] MEDS: METOCLOPRAMIDE HCL 10 MG TABLET (FP) PO SCH ×2 (06:48→11:21)
--- NOTE | 2020-03-30 09:39 | DS ---
Physical Examination Vital Signs: Vital Signs Temperature 98.0 F 03/30/20 06:00 Pulse Rate 84 03/30/20 06:00 Respiratory Rate 20 03/30/20 06:00 Blood Pressure 143/82 03/30/20 06:00 O2 Sat by Pulse Oximetry (%) 98 03/29/20 21:00 Findings/Remarks: awake alert feels good eating breakfast Constitutional: Yes: Mild Distress Cardiovascular: Yes: Regular Rate and Rhythm Respiratory: Yes: Diminished Gastrointestinal: Yes: Soft Renal/: Yes: Incontinence Musculoskeletal: Yes: Muscle Weakness Edema: Yes Integumentary: Yes: Other Wound/Incision: Yes: Other Neurological: Yes: Pre-Existing Deficit Labs: CBC, BMP 03/27/20 09:00 03/29/20 06:35 Discharge Summary Problems reviewed: Yes Reason For Visit: ACUTE KIDNEY INJURY Current Active Problems ROSALES (acute kidney injury) (Acute) Acute renal failure (Acute) Altered mental status (Acute) Colon adenomas (Acute) Diabetes mellitus (Acute) Gastroparesis diabeticorum (Acute) HTN (hypertension) (Acute) Hematuria (Acute) History of transmetatarsal amputation of right foot (Acute) Hydronephrosis (Acute) Hydronephrosis (Acute) Hyperkalemia (Acute) Hyperkalemia (Acute) Nausea (Acute) Nausea and vomiting (Acute) Thrush, oral (Acute) UTI (urinary tract infection) (Acute) Vomiting (Acute) Procedures: Principal: ct scans/gi workup Hospital Course: admitted for iv fluids, abx, treated for severe gastroparesis, poor appetite and unable to tolerate Goals: reglan prn, gi follow up, diet texture Condition: Stable - Instructions Diet, Activity, Other Instructions: labs cbc/cmp every 3-4 days diabetic gastroparesis diet endocrine/gi follow up Referrals: Des Alvarez MD [Staff Physician] - Disposition: RESIDENTIAL FACILITY - Home Medications Comprehensive Discharge Medication List: Ambulatory Orders Acetaminophen [Tylenol .Extra-Strength -] 500 mg PO Q8H 03/18/20 Multivitamins [Multivit ([facility] Formulary)] 1 tab PO DAILY 03/18/20 Nystatin Cream [Mycostatin Cream -] 1 applic TP BID 03/18/20 Pravastatin Sodium [Pravachol -] 20 mg PO HS 03/18/20 Amlodipine Besylate [Norvasc -] 5 mg PO DAILY tablet 03/29/20 Insulin Sliding Scale [Novolog Vial Sliding Scale -] 1 vial SQ TIDAC units 03/29/20 Magnesium Oxide [Mag-Ox -] 400 mg PO DAILY tablet 03/29/20 Metoclopramide HCl [Reglan -] 5 mg PO TIDAC tablet 03/29/20 Pantoprazole Sodium [Protonix -] 40 mg PO BID tablet.ec 03/29/20 Potassium Chloride [K-Dur -] 20 meq PO DAILY tablet.er 03/29/20 Sodium Bicarbonate - 650 mg PO DAILY tablet 03/29/20 Tamsulosin HCl [Flomax -] 0.8 mg PO DAILY@0830 cap.er.24h 03/29/20
[2020-03-30] MEDS: TAMSULOSIN HCL 0.4 MG CAP PO SCH (09:52)
[2020-03-30] MEDS: MAGNESIUM OXIDE 400 MG TABLET (FP) PO SCH (09:52)
[2020-03-30] MEDS: PANTOPRAZOLE 40 MG TABLET PO SCH ×2 (09:53→21:43)
[2020-03-30] MEDS: amLODIPine BESYLATE 5 MG TABLET (FP) PO SCH (09:53)
[2020-03-30] MEDS: POTASSIUM CHLORIDE TABS 10 MEQ TABLET.ER (FP) PO SCH (09:53)
[2020-03-30] MEDS: MULTIVITAMINS THER W-MINERALS COMBO TABLET (FP) PO SCH (09:57)
[2020-03-30 11:25] LABS: ALBUMIN 1.8 g/dl (3.4-5.0); BILIRUBIN,TOTAL 1.2 mg/dL (0.2-1); BLOOD UREA NITROGEN 17.7 mg/dL (7-18); CALCIUM 8.1 mg/dL (8.5-10.1); CREATININE 2.1 mg/dL (0.55-1.3); POTASSIUM 3.4 mmol/L (3.5-5.1); TOT PROT 6.3 g/dl (6.4-8.2)
--- NOTE | 2020-03-30 11:53 | PN ---
Progress Note, Physician History of Present Illness: Pt seen and examined at bedside. She is awake and alert. she denies shortness of breath. - Current Medication List Current Medications: Active Medications Amlodipine Besylate (Norvasc -) 5 mg PO DAILY [facility] Last Admin: 03/30/20 09:53 Dose: 5 mg Documented by: Insulin Aspart (Novolog Vial Sliding Scale -) 1 vial SQ TIDAC [facility]; Protocol Last Admin: 03/30/20 11:21 Dose: 6 units Documented by: Magnesium Oxide (Mag-Ox -) 400 mg PO DAILY [facility] Last Admin: 03/30/20 09:52 Dose: 400 mg Documented by: Metoclopramide HCl (Reglan -) 5 mg PO TIDAC [facility] Stop: 03/31/20 10:59 Last Admin: 03/30/20 11:21 Dose: 5 mg Documented by: Mirtazapine (Remeron -) 7.5 mg PO HS [facility] Last Admin: 03/29/20 22:02 Dose: 7.5 mg Documented by: Multivitamins/Minerals (Theragran-M) 1 each PO DAILY [facility] Last Admin: 03/30/20 09:57 Dose: 1 each Documented by: Nystatin (Nystatin Oral Suspension -) 500,000 units PO Q6HPO [facility] Last Admin: 03/30/20 11:24 Dose: 500,000 units Documented by: Pantoprazole Sodium (Protonix -) 40 mg PO BID [facility] Last Admin: 03/30/20 09:53 Dose: 40 mg Documented by: Potassium Chloride (K-Dur -) 20 meq PO DAILY [facility] Last Admin: 03/30/20 09:53 Dose: Not Given Documented by: Tamsulosin HCl (Flomax -) 0.8 mg PO DAILY@0830 [facility] Last Admin: 03/30/20 09:52 Dose: 0.8 mg Documented by: - Objective Vital Signs: Vital Signs Temperature 98.0 F 03/30/20 06:00 Pulse Rate 84 03/30/20 06:00 Respiratory Rate 20 03/30/20 06:00 Blood Pressure 143/82 03/30/20 06:00 O2 Sat by Pulse Oximetry (%) 98 03/29/20 21:00 Constitutional: Yes: Calm Eyes: Yes: Conjunctiva Clear HENT: Yes: Atraumatic Cardiovascular: Yes: S1, S2 Respiratory: Yes: CTA Bilaterally Gastrointestinal: Yes: Soft Genitourinary: Yes: Bladder Distention Musculoskeletal: Yes: Muscle Weakness Edema: Yes Edema: LLE: Trace, RLE: Trace Neurological: Yes: Oriented Psychiatric: Yes: Oriented Labs: CBC, BMP 03/27/20 09:00 03/30/20 10:12 Problem List - Problems (1) Hyperkalemia Code(s): E87.5 - HYPERKALEMIA (2) Vomiting Code(s): R11.10 - VOMITING, UNSPECIFIED (3) HTN (hypertension) Code(s): I10 - ESSENTIAL (PRIMARY) HYPERTENSION (4) Diabetes mellitus Code(s): E11.9 - TYPE 2 DIABETES MELLITUS WITHOUT COMPLICATIONS (5) ROSALES (acute kidney injury) Code(s): N17.9 - ACUTE KIDNEY FAILURE, UNSPECIFIED Assessment/Plan Current Medications Generic Name Dose Route Start Last Admin Trade Name Freq PRN Reason Stop Dose Admin Amlodipine Besylate 5 mg 03/26/20 14:30 03/30/20 09:53 Norvasc - PO 5 mg DAILY EDITH Administration Insulin Aspart 1 vial 03/19/20 11:00 03/30/20 11:21 Novolog Vial Sliding Scale - SQ 6 units TIDAC EDITH Administration Protocol Magnesium Oxide 400 mg 03/22/20 13:30 03/30/20 09:52 Mag-Ox - PO 400 mg DAILY EDITH Administration Metoclopramide HCl 5 mg 03/28/20 11:00 03/30/20 11:21 Reglan - PO 03/31/20 10:59 5 mg TIDAC EDITH Administration Mirtazapine 7.5 mg 03/29/20 22:00 03/29/20 22:02 Remeron - PO 7.5 mg HS EDITH Administration Multivitamins/Minerals 1 each 03/29/20 10:00 03/30/20 09:57 Theragran-M PO 1 each DAILY EDITH Administration Nystatin 500,000 units 03/29/20 18:00 03/30/20 11:24 Nystatin Oral Suspension - PO 500,000 units Q6HPO EDITH Administration Pantoprazole Sodium 40 mg 03/29/20 22:00 03/30/20 09:53 Protonix - PO 40 mg BID EDITH Administration Potassium Chloride 20 meq 03/23/20 11:15 03/30/20 09:53 K-Dur - PO Not Given DAILY EDITH Tamsulosin HCl 0.8 mg 03/29/20 08:30 03/30/20 09:52 Flomax - PO 0.8 mg DAILY@0830 EDITH Administration Impression 1. ROSALES 2. hyperkalemia 3. nausea and vomiting 4. met acidosis 5. DM 6. HTN 7. HLD 8. PVD Plan - renal function is worsen today - asked nurse to do a bladder scan and re-insert miller if she has elevated residual - replace potassium - encourage po intake - will need outpt follow up - will follow
--- NOTE | 2020-03-30 19:52 | CONSULT ---
Consult - text type - Consultation Consultation Note: NEUROLOGY CONSULTATION is greatly appreciated: Events reviewed and discussed with her son, Jovani, a physician, at the bedside. This 69 yo RH div woman was living alone. Long h/o Diabetes complicated by peripheral neuropathy with gradual deterioration of gait attributed to "Charcot joints." Right foot developed gangrene and infection and ultimately came to right forefoot amputation in December. Transferred to [facility] but did not progress in PT. Developed worsening tremors and constipation alternating with diarrhea. Colonoscopy (Lantin)- polyps. Two years of progressive bladder difficulties resulting in incontinence in spite of Urology consult and Rx. Admitted with obstructive hydroureter and renal failure due to UTI/Cystitis with hyperkalemia. Still can't void spontaneously and Kay replaced (Vol> 600cc). On: Amlodipine; Ertapenem; Insulin; Magnesium; Metoclopramide 5 mg PO TID; Protonix. (Tremors antedate metaclopramide Rx). Patient and son also describe new on of visual hallucinations (Little people) with underlying memory problems. CT of head (reviewed): Moderate, diffuse atrophy and microvascular changes. NARA: No bruits. Kay in situ, s/p right forefoot amputation. Heals bandaged. NEURO: Ox [facility]. Apr 05. No year. Recalls 2 of 3. ++Glabella. Hypophonic speech Masked facies ++ Rest tremor. ++ Cogwheeling Decreased KATRINA's Mild intrinsic and ankle dorsiflexion weakness. Areflexic in legs No FTN dystaxia Decreased touch and vibration to the mid-calf. IMP: 1. Non-focal exam sig for mild B/L cerebral dysfunction 2. Severe diabetic peripheral neuropathy 3. 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 Neurogenic bladder 6. All with worsen with Toxic metabolic encephalopathy due to infection. SUGGEST: D/C metachlopramide Check B12, TSH MRI of brain (C-) Trial of L-Dopa (Sinemet CR 25/100 TID with meals) Out Patient Rx of Pimavanserin (Nuplazid) for visual halluciantions. Mobilize OOB to chair and DVT prophylaxis Neuro f/u as out patient. Thank you very much, Jovani Juarez MD
--- NOTE | 2020-03-30 21:42 | PN ---
Progress Note, Physician History of Present Illness: AWAKE IN BED OFFERS NO COMPLAINTS NO FEVER/CHILLS AZOTEMIA IMPROVED - Current Medication List Current Medications: Active Medications Amlodipine Besylate (Norvasc -) 5 mg PO DAILY [facility] Last Admin: 03/30/20 09:53 Dose: 5 mg Documented by: Insulin Aspart (Novolog Vial Sliding Scale -) 1 vial SQ TIDAC [facility]; Protocol Last Admin: 03/30/20 17:57 Dose: 4 units Documented by: Magnesium Oxide (Mag-Ox -) 400 mg PO DAILY [facility] Last Admin: 03/30/20 09:52 Dose: 400 mg Documented by: Mirtazapine (Remeron -) 7.5 mg PO HS [facility] Last Admin: 03/29/20 22:02 Dose: 7.5 mg Documented by: Multivitamins/Minerals (Theragran-M) 1 each PO DAILY [facility] Last Admin: 03/30/20 09:57 Dose: 1 each Documented by: Nystatin (Nystatin Oral Suspension -) 500,000 units PO Q6HPO [facility] Last Admin: 03/30/20 17:57 Dose: 500,000 units Documented by: Pantoprazole Sodium (Protonix -) 40 mg PO BID [facility] Last Admin: 03/30/20 09:53 Dose: 40 mg Documented by: Potassium Chloride (K-Dur -) 20 meq PO DAILY [facility] Last Admin: 03/30/20 09:53 Dose: Not Given Documented by: Tamsulosin HCl (Flomax -) 0.8 mg PO DAILY@0830 [facility] Last Admin: 03/30/20 09:52 Dose: 0.8 mg Documented by: - Objective Vital Signs: Vital Signs Temperature 98.7 F 03/30/20 18:00 Pulse Rate 88 03/30/20 18:00 Respiratory Rate 20 03/30/20 18:00 Blood Pressure 110/53 L 03/30/20 18:00 O2 Sat by Pulse Oximetry (%) 94 L 03/30/20 15:00 Cardiovascular: Yes: Regular Rate and Rhythm, S1, S2 Respiratory: Yes: CTA Bilaterally Gastrointestinal: Yes: Normal Bowel Sounds, Soft, Abdomen, Obese Labs: CBC, BMP 03/27/20 09:00 03/30/20 10:12 Assessment/Plan UTI ESBL R/O HEMORRHAGIC CYSTITIS CKD DM COMPLETED COURSE OF ERTAPENEM OBSERVE OFF ANTIBIOTICS
[2020-03-30] MEDS: MIRTAZAPINE 15 MG TABLET (FP) PO SCH (21:43)
[2020-03-31] MEDS: NYSTATIN 500,000 UNITS/5 ML SUSPENSION PO SCH ×3 (00:26→11:12)
[2020-03-31] MEDS: INSULIN SLIDING SCALE (NOVOLOG) 1 VIAL SQ SCH ×2 (06:33→12:05)
--- NOTE | 2020-03-31 08:55 | PN ---
Progress Note, Physician - Current Medication List Current Medications: Active Medications Amlodipine Besylate (Norvasc -) 5 mg PO DAILY [facility] Last Admin: 03/30/20 09:53 Dose: 5 mg Documented by: Insulin Aspart (Novolog Vial Sliding Scale -) 1 vial SQ TIDAC [facility]; Protocol Last Admin: 03/31/20 06:33 Dose: 8 units Documented by: Magnesium Oxide (Mag-Ox -) 400 mg PO DAILY [facility] Last Admin: 03/30/20 09:52 Dose: 400 mg Documented by: Mirtazapine (Remeron -) 7.5 mg PO HS [facility] Last Admin: 03/30/20 21:43 Dose: 7.5 mg Documented by: Multivitamins/Minerals (Theragran-M) 1 each PO DAILY [facility] Last Admin: 03/30/20 09:57 Dose: 1 each Documented by: Nystatin (Nystatin Oral Suspension -) 500,000 units PO Q6HPO [facility] Last Admin: 03/31/20 06:33 Dose: 500,000 units Documented by: Pantoprazole Sodium (Protonix -) 40 mg PO BID [facility] Last Admin: 03/30/20 21:43 Dose: 40 mg Documented by: Potassium Chloride (K-Dur -) 20 meq PO DAILY [facility] Last Admin: 03/30/20 09:53 Dose: Not Given Documented by: Tamsulosin HCl (Flomax -) 0.8 mg PO DAILY@0830 [facility] Last Admin: 03/30/20 09:52 Dose: 0.8 mg Documented by: - Objective Vital Signs: Vital Signs Temperature 98.2 F 03/31/20 01:15 Pulse Rate 81 03/31/20 01:15 Respiratory Rate 18 03/31/20 01:15 Blood Pressure 105/60 03/31/20 01:15 O2 Sat by Pulse Oximetry (%) 95 03/30/20 22:00 Labs: CBC, BMP 03/27/20 09:00 03/30/20 10:12 Problem List - Problems (1) Acute renal failure Code(s): N17.9 - ACUTE KIDNEY FAILURE, UNSPECIFIED (2) ROSALES (acute kidney injury) Code(s): N17.9 - ACUTE KIDNEY FAILURE, UNSPECIFIED (3) Colon adenomas Code(s): D12.6 - BENIGN NEOPLASM OF COLON, UNSPECIFIED (4) Diabetes mellitus Code(s): E11.9 - TYPE 2 DIABETES MELLITUS WITHOUT COMPLICATIONS (5) 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 (6) HTN (hypertension) Code(s): I10 - ESSENTIAL (PRIMARY) HYPERTENSION (7) Hyperkalemia Code(s): E87.5 - HYPERKALEMIA (8) UTI (urinary tract infection) Code(s): N39.0 - URINARY TRACT INFECTION, SITE NOT SPECIFIED
[2020-03-31] MEDS: TAMSULOSIN HCL 0.4 MG CAP PO SCH (11:11)
[2020-03-31] MEDS: MAGNESIUM OXIDE 400 MG TABLET (FP) PO SCH (11:12)
[2020-03-31] MEDS: MULTIVITAMINS THER W-MINERALS COMBO TABLET (FP) PO SCH (11:12)
[2020-03-31] MEDS: PANTOPRAZOLE 40 MG TABLET PO SCH (11:12)
[2020-03-31] MEDS: amLODIPine BESYLATE 5 MG TABLET (FP) PO SCH (11:12)
[2020-03-31] MEDS: POTASSIUM CHLORIDE TABS 10 MEQ TABLET.ER (FP) PO SCH (11:12)
--- NOTE | 2020-03-31 11:36 | PN ---
Progress Note (short form) - Note Progress Note: PATIENT WILL NEED AN OPEN MRI DUE TO POSITIONING AND ANXIETY. WILL DEFER TO OUTPATIENT I SPOKE WITH HER SON AND HE AGREES TO HAVE IT DONE IN THE OUTPATIENT SETTING. DC PLANNING FOR TODAY Problem List - Problems (1) Acute renal failure Code(s): N17.9 - ACUTE KIDNEY FAILURE, UNSPECIFIED (2) ROSALES (acute kidney injury) Code(s): N17.9 - ACUTE KIDNEY FAILURE, UNSPECIFIED (3) Colon adenomas Code(s): D12.6 - BENIGN NEOPLASM OF COLON, UNSPECIFIED (4) Diabetes mellitus Code(s): E11.9 - TYPE 2 DIABETES MELLITUS WITHOUT COMPLICATIONS (5) 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 (6) HTN (hypertension) Code(s): I10 - ESSENTIAL (PRIMARY) HYPERTENSION (7) Hyperkalemia Code(s): E87.5 - HYPERKALEMIA (8) UTI (urinary tract infection) Code(s): N39.0 - URINARY TRACT INFECTION, SITE NOT SPECIFIED
[2020-03-31 11:55] LABS: HEMATOCRIT 26.1 % (32.4-45.2); HEMOGLOBIN 8.4 GM/dL (10.7-15.3); MCH 24.7 pg (25.7-33.7); MCHC 32.3 g/dl (32.0-36.0); MEAN CELL VOLUME 76.6 fl (80-96); MEAN PLT VOLUME 8.3 fl (7.5-11.1); PLATELET COUNT 256 K/MM3 (134-434); RDW 21.4 % (11.6-15.6); WHITE BLOOD COUNT 8.4 K/mm3 (4.0-10.0)
[2020-03-31 12:15] LABS: BLOOD UREA NITROGEN 19.4 mg/dL (7-18); CALCIUM 7.7 mg/dL (8.5-10.1); CREATININE 2.1 mg/dL (0.55-1.3); MAGNESIUM 1.5 mg/dL (1.8-2.4); POTASSIUM 3.5 mmol/L (3.5-5.1)
--- NOTE | 2020-03-31 12:24 | CON.PSY ---
Psychiatry Consult Chief Complaint: 69 year old female admitted from [facility]. history of chronic medical illnessswes. Patient seen for Visual hallucinations as per her Son who is Physian.. Seen by Dr. 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 Patient denies any Visual hallucinatins. I swaw those people a while ago nit anyb more.. Symptoms: reports: Hallucinations - Previous Psychiatric Treatment Outpatient: None Inpatient: None - Previous Substance Abuse Treatment Outpatient: None Inpatient: None - Current Medications Current Medications: Active Medications Amlodipine Besylate (Norvasc -) 5 mg PO DAILY [facility] Last Admin: 03/31/20 11:12 Dose: 5 mg Documented by: Insulin Aspart (Novolog Vial Sliding Scale -) 1 vial SQ TIDAC [facility]; Protocol Last Admin: 03/31/20 12:05 Dose: 6 units Documented by: Magnesium Oxide (Mag-Ox -) 400 mg PO DAILY [facility] Last Admin: 03/31/20 11:12 Dose: 400 mg Documented by: Mirtazapine (Remeron -) 7.5 mg PO HS [facility] Last Admin: 03/30/20 21:43 Dose: 7.5 mg Documented by: Multivitamins/Minerals (Theragran-M) 1 each PO DAILY [facility] Last Admin: 03/31/20 11:12 Dose: 1 each Documented by: Nystatin (Nystatin Oral Suspension -) 500,000 units PO Q6HPO [facility] Last Admin: 03/31/20 11:12 Dose: 500,000 units Documented by: Pantoprazole Sodium (Protonix -) 40 mg PO BID [facility] Last Admin: 03/31/20 11:12 Dose: 40 mg Documented by: Potassium Chloride (K-Dur -) 20 meq PO DAILY [facility] Last Admin: 03/31/20 11:12 Dose: 20 meq Documented by: Tamsulosin HCl (Flomax -) 0.8 mg PO DAILY@0830 [facility] Last Admin: 03/31/20 11:11 Dose: 0.8 mg Documented by: - Allergies Allergies: Allergies Allergy/AdvReac Type Severity Reaction Status Date / Time adhesive tape Allergy Intermediate Itching Verified 02/29/20 11:16 - Current Living Status Usual Living Arrangement: Senior Living - Current Mental Status Evaluation Appearance: Disheveled Attitude: Cooperative - Affect Affect: Constrictive Appropriateness: Appropriate to Content - Mood Mood: Euthymic - Speech/Language Expressive: Coherent - Psychomotor Activity Psychomotor Activity: Normal, Slowed - Thought Process Thought Process: Intact - Thought Content Hallucinations: Absent Delusions: Absent - Self Perception Self Perception: No Impairment - Cognition Attention: Alert Orientation: Time Memory, Short Term: 2/3 Memory, Remote with Promptin/3 - Concentration Serial Sevens Intact: No Simple Calculations Intact: No - Abstraction Proverb Interpretation: Intact Judgement: Intact - Insight Insight: Intact - Impulse Control Impulse Control: Good Control - Suicidal Ideation Suicidal Ideation: No - Homicidal Ideation Homicidal Ideation: No Assessment/Plan 1) Do not recemend any Psych meds.. Patient is not hallucinating at this time 2) agree with 's recemmendations fror another eval if Hallucinations return for Parkinson's Disease. 3) discharge when medically stable to [facility].
[2020-03-31 14:06] VITALS: BP 90/52; PULSE 77; TEMP 97.7
--- NOTE | 2020-03-31 14:19 | PN ---
Progress Note, Physician History of Present Illness: Pt seen and examined at bedside. She is awake and appears comfortable. Miller replaced for retention. - Current Medication List Current Medications: Active Medications Amlodipine Besylate (Norvasc -) 5 mg PO DAILY [facility] Last Admin: 03/31/20 11:12 Dose: 5 mg Documented by: Insulin Aspart (Novolog Vial Sliding Scale -) 1 vial SQ TIDAC [facility]; Protocol Last Admin: 03/31/20 12:05 Dose: 6 units Documented by: Magnesium Oxide (Mag-Ox -) 400 mg PO DAILY [facility] Last Admin: 03/31/20 11:12 Dose: 400 mg Documented by: Mirtazapine (Remeron -) 7.5 mg PO HS [facility] Last Admin: 03/30/20 21:43 Dose: 7.5 mg Documented by: Multivitamins/Minerals (Theragran-M) 1 each PO DAILY [facility] Last Admin: 03/31/20 11:12 Dose: 1 each Documented by: Nystatin (Nystatin Oral Suspension -) 500,000 units PO Q6HPO [facility] Last Admin: 03/31/20 11:12 Dose: 500,000 units Documented by: Pantoprazole Sodium (Protonix -) 40 mg PO BID [facility] Last Admin: 03/31/20 11:12 Dose: 40 mg Documented by: Potassium Chloride (K-Dur -) 20 meq PO DAILY [facility] Last Admin: 03/31/20 11:12 Dose: 20 meq Documented by: Tamsulosin HCl (Flomax -) 0.8 mg PO DAILY@0830 [facility] Last Admin: 03/31/20 11:11 Dose: 0.8 mg Documented by: - Objective Vital Signs: Vital Signs Temperature 97.7 F 03/31/20 14:05 Pulse Rate 77 03/31/20 14:05 Respiratory Rate 20 03/31/20 14:05 Blood Pressure 90/52 L 03/31/20 14:05 O2 Sat by Pulse Oximetry (%) 98 03/31/20 10:00 Constitutional: Yes: Calm Eyes: Yes: Conjunctiva Clear HENT: Yes: Atraumatic Cardiovascular: Yes: S1, S2 Respiratory: Yes: CTA Bilaterally Gastrointestinal: Yes: Normal Bowel Sounds, Soft Genitourinary: Yes: Miller Present Musculoskeletal: Yes: Muscle Weakness Edema: No Neurological: Yes: Oriented Labs: CBC, BMP 03/31/20 11:36 03/31/20 11:36 Problem List - Problems (1) Hyperkalemia Code(s): E87.5 - HYPERKALEMIA (2) Vomiting Code(s): R11.10 - VOMITING, UNSPECIFIED (3) HTN (hypertension) Code(s): I10 - ESSENTIAL (PRIMARY) HYPERTENSION (4) Diabetes mellitus Code(s): E11.9 - TYPE 2 DIABETES MELLITUS WITHOUT COMPLICATIONS (5) ROSALES (acute kidney injury) Code(s): N17.9 - ACUTE KIDNEY FAILURE, UNSPECIFIED Assessment/Plan Current Medications Generic Name Dose Route Start Last Admin Trade Name Freq PRN Reason Stop Dose Admin Amlodipine Besylate 5 mg 03/26/20 14:30 03/31/20 11:12 Norvasc - PO 5 mg DAILY [facility] Administration Insulin Aspart 1 vial 03/19/20 11:00 03/31/20 12:05 Novolog Vial Sliding Scale - SQ 6 units TIDAC [facility] Administration Protocol Magnesium Oxide 400 mg 03/22/20 13:30 03/31/20 11:12 Mag-Ox - PO 400 mg DAILY [facility] Administration Mirtazapine 7.5 mg 03/29/20 22:00 03/30/20 21:43 Remeron - PO 7.5 mg HS [facility] Administration Multivitamins/Minerals 1 each 03/29/20 10:00 03/31/20 11:12 Theragran-M PO 1 each DAILY [facility] Administration Nystatin 500,000 units 03/29/20 18:00 03/31/20 11:12 Nystatin Oral Suspension - PO 500,000 units Q6HPO [facility] Administration Pantoprazole Sodium 40 mg 03/29/20 22:00 03/31/20 11:12 Protonix - PO 40 mg BID [facility] Administration Potassium Chloride 20 meq 03/23/20 11:15 03/31/20 11:12 K-Dur - PO 20 meq DAILY [facility] Administration Tamsulosin HCl 0.8 mg 03/29/20 08:30 03/31/20 11:11 Flomax - PO 0.8 mg DAILY@0830 [facility] Administration Impression 1. ROSALES 2. hyperkalemia 3. nausea and vomiting 4. met acidosis 5. DM 6. HTN 7. HLD 8. PVD Plan - maintain miller - monitor output - will start fluids - monitor lytes if discharged today in rehab - will need urology follow up as well - will follow
[2020-03-31] MEDS ORDERED: SODIUM CHLORIDE 0.45%/POT 20 MEQ/1,000 ML INFUS.BAG IV SCH (14:30)
== END 2020-03-31 15:58 | DRG 699 ==
LOC: JER 13:19 → JERBED 19:02 → J4W 03-19 00:55
PROVIDERS: ADMIT Internal Medicine; ATTEND Family Medicine
DX: E11.21 Type 2 diabetes mellitus with diabetic nephropathy (principal); N39.0 Urinary tract infection, site not specified; E87.2 Acidosis; B37.0 Candidal stomatitis; N13.30 Unspecified hydronephrosis; E11.43 Type 2 diabetes mellitus with diabetic autonomic (poly)neuropathy; N04.9 Nephrotic syndrome with unspecified morphologic changes; N17.9 Acute kidney failure, unspecified; E87.5 Hyperkalemia; E78.5 Hyperlipidemia, unspecified; B96.1 Klebsiella pneumoniae [K. pneumoniae] as the cause of diseases classified elsewhere; R11.2 Nausea with vomiting, unspecified; E11.22 Type 2 diabetes mellitus with diabetic chronic kidney disease; D64.9 Anemia, unspecified; E87.6 Hypokalemia; K31.84 Gastroparesis; D12.6 Benign neoplasm of colon, unspecified; E88.09 Other disorders of plasma-protein metabolism, not elsewhere classified; G20 Parkinson's disease; R44.1 Visual hallucinations; N31.9 Neuromuscular dysfunction of bladder, unspecified; R31.0 Gross hematuria; E11.51 Type 2 diabetes mellitus with diabetic peripheral angiopathy without gangrene; E66.9 Obesity, unspecified; Z68.33 Body mass index [BMI] 33.0-33.9, adult; Z89.431 Acquired absence of right foot
CPT/HCPCS: 36415; 70450-TC; 74176-TC; 76775-TC; 80048; 80051; 80053; 81003; 82272; 82436; 82550; 82565; 82607; 82728; 82784; 82962; 83036; 83516; 83520; 83540; 83550; 83605; 83690; 83735; 84100; 84133; 84155; 84165; 84300; 84439; 84443; 84484; 85025; 85027; 85045; 86038; 86225; 86256; 86334; 87086; 87186; 93005; 93010; 97162-GP; 99285-25; C9803; J0131; J1644; J3480; Q2036; U0003